=== PATIENT | male | born 1990 | race Caucasian/White ===

== ENCOUNTER 2022-08-29 11:45 | Outpatient (RCR) | payer OTHER, MEDICAID, SELFPAY ==
--- NOTE | 2022-06-22 18:59 | ST.OPIE ---
Visit Care Team Role Provider Type KIMI Robbins Family Provider Non-Staff Primary Care Provider Specialty: Nursing Address: [facility] [address], [address], [place], [address] Email: Attending Provider Referring Provider Specialty: Address: Phone: Fax: Email: Speech-Language Pathology Initial Evaluation TRADES HELPER Adult Cognitive Linguistic Eval Start: 06/22/22 18:08 Freq: Status: Active Protocol: Document 06/22/22 18:11 LNK (Rec: 06/22/22 18:59 LNK [id number]) Adult Cognitive Linguistic Evaluation Session Time Visit Start Time 14:30 Visit Stop Time 15:50 Total Visit Minutes 80 Visit Information Visit Number 1 Plan of Care Dates 06/22/22-10/22/22 Insurance Information [employer] Referral Referring Provider Dr.Kim Niyah Rodriguez MD Reason for Referral TBI Setting Assessment Location Outpatient Care Visit Type Note Type Initial evaluation Next Note Type Next Note Type Re-Evaluation Patient Information Identification Type Name,Date of Patient History Pt is a 31 year old male 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 According to his parents, who accompanied him, the pt was found down after falling. pt was unconscious and emergency responders were called. Pt was air lifted to [facility] where he remained in a coma for 16 days. Pt underwent an craniotomy to remove an epidural hematoma. initial Dalia score was 2. Pt remained in ICU until 05/14/22 and subsequently entered inpatient rehab at [facility] and was discharged on 05/30/22. out patient OT, PT and ST therapies were recommended. According to his parents, the pt is a shy and quiet young man. He lives at home with his parents. He was working at [employer] prior to his accident and wishes to return to [employer] to work in the future. Previous Therapy Previous Speech-Language Therapy Yes History of Therapy [facility] and acute rehab Subjective Patient Report Pt's parents report that currently, he presents with expressive aphasia, memory loss, reduced levels of processing speed and a significant hearing loss as a result of the accident. The discharge report from [facility] noted that the pt continues to demonstrate the following impairments: auditory processing, vebal expression, attention, written expression, memory, reasoning , executive functions and visual perception. The [facility] report summarized pt's status at discharge as Reduced ability to attend; Reduced ability to recall important information; Reduced ability to follow safety precautions; Reduced ability to understand and participate in higher level conversations Assessment Oral Motor Examination Completed Yes Results Pt demonstrated incoordination of the tongue muscles for lateralization and slowed DKS. Adequate ROM and strength for lips, jaw and velum. Pt's speech was observed to be mildly dysarthric. Formal Assessment Standardized Test/Screener Type Cognitive Linguistic Quick Test (CLQT) Administration Complete Results The results of the CLQT indicated mild cognitive deficits in the domains: Attention, Executive Functions and Visuospatial Skills. The pt demonstrated moderate cognitive deficits in the domains: Memory, language, and in the clock drawing task. relative to the individual subtests, The pt scored below age criterion on the following Personal Facts (forgot where in [place] he was born), Confrontational Naming, Clock Drawing, Story retelling anf fact recall,Symbolic Trails, Design Memory and Design Generation. Of these subtests the pt demonstrated the greatest difficulty with 1) Clock Drawing (executive functions, sequencing, self- monitoring, planning); 2) Story Retelling (memory, language, narration, sequencing logical conclusion) 3) Symbol Trails (attention, visual scanning, working memory, planning mental flexibility) and 4) Design Generation (mental flexibility , strategy, creativity, working memory and self- monitoring. Cognitive, speech and language therapies are recommended to address pt's dysarthria, receptive/expressive aphasia as well as cognitive skill deficits. Findings/Results Language Function Mild-moderately impaired Cognitive Function Moderately impaired Cognitive Communication Deficits Self-awareness of Cognitive- Situational awareness ( Communication Deficits recognition of problem in context;in real time) Concomitant Factors Concomitant Factors Hearing loss Impact on Functioning Activity Limits/Particip.Rest. Mild: Interpersonal Interactions Mod: General Tasks and Demands Household Tasks Education Employment Community Safety Risks Mild: Being Left Alone at Home Mod: Reacting to Emergency Managing Medication Traveling Alone in Community Prognosis Prognosis Good Based on Cognitive status,Family support,Duration of symptoms/ severity,Time since onset Plan of Care Speech-Language Treatment Yes Frequency weekly Patient/Caregiver Education Described results of evaluation,Family/caregivers expressed understanding of evaluation,Family/caregivers expressed understanding of safety precautions,Family/ caregivers require further education/training Short Term Goals 1) Pt will reference and utilize external memory sides for safety information, daily information, use of memory book or other assistive devices daily without cues/ reminders from others, per parent/patient report. 2) Pt will communicate/converse with others on familiar topics using strategies for WFD difficulty and word generation without cues at 65% opportunities. 3) pt will complete moderately difficult problem-solving tasks independently with use of strategies provided without cues/assistance at 65% opportunities Pattern Designer Goals Pt will return to work
--- NOTE | 2022-06-22 19:02 | ST.OP.ACL ---
Visit Care Team Role Provider Type KIMI Robbins Family Provider Non-Staff Primary Care Provider Specialty: Nursing Address: [facility] [address], [address], [place], [address] Email: Attending Provider Referring Provider Specialty: Address: Phone: Fax: Email: Adult Cognitive Linguistic Evaluation BUSINESS SUPPORT Adult Cognitive Linguistic Eval Start: 06/22/22 18:08 Freq: Status: Active Protocol: Document 06/22/22 18:11 LNK (Rec: 06/22/22 18:59 LNK [id number]) Adult Cognitive Linguistic Evaluation Session Time Visit Start Time 14:30 Visit Stop Time 15:50 Total Visit Minutes 80 Visit Information Visit Number 1 Plan of Care Dates 06/22/22-10/22/22 Insurance Information [employer] Referral Referring Provider Dr.Kim Niyah Rodriguez MD Reason for Referral TBI Setting Assessment Location Outpatient Care Visit Type Note Type Initial evaluation Next Note Type Next Note Type Re-Evaluation Patient Information Identification Type Name,Date of Patient History Pt is a 31 year old male 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 According to his parents, who accompanied him, the pt was found down after falling. pt was unconscious and emergency responders were called. Pt was air lifted to [facility] where he remained in a coma for 16 days. Pt underwent an craniotomy to remove an epidural hematoma. initial Sinton score wa 2. Pt remained in ICU until 05/14/22 and subsequently entered inpatient rehab at [facility] and was discharged on 05/30/22. out patient OT, PT and ST therapies were recommended. According to his parents, the pt is a shy and quiet young man. He lives at home with his parents. He was working at [employer] prior to his accident and wishes to return to [employer] to work in the future. Previous Therapy Previous Speech-Language Therapy Yes History of Therapy [facility] and acute rehab Subjective Patient Report Pt's parents report that currently, he presents with expressive aphasia, memory loss, reduced levels of processing speed and a significant hearing loss as a result of the accident. The discharge report from [facility] noted that the pt continues to demonstrate the following impairments: auditory processing, vebal expression, attention, written expression, memory, reasoning , executive functions and visual perception. The [facility] report summarized pt's status at discharge as Reduced ability to attend; Reduced ability to recall important information; Reduced ability to follow safety precautions; Reduced ability to understand and participate in higher level conversations Assessment Oral Motor Examination Completed Yes Results Pt demonstrated incoordination of the tongue muscles for lateralization and slowed DKS. Adequate ROM and strength for lips, jaw and velum. Pt's speech was observed to be mildly dysarthric. Formal Assessment Standardized Test/Screener Type Cognitive Linguistic Quick Test (CLQT) Administration Complete Results The results of the CLQT indicated mild cognitive deficit in the domains: Attention, Executive Functions and Visuospatial Skills. The pt demonstrated moderate cognitive deficits in the domains: Memory, language, and in the clock drawing task. relative to the individual subtests, The pt scored below age criterion on the following Personal Facts (forgot where in [place] he was born), Confrontational Naming, Clock Drawing, Story retelling and fact recall,Symbolic Trails, Design Memory and Design Generation. Of these subtests the pt demonstrated the greatest difficulty with 1) Clock Drawing (executive functions, sequencing, self- monitoring, planning); 2) Story Retelling (memory, language, narration, sequencing logical conclusion) 3) Symbol Trails (attention, visual scanning, working memory, planning mental flexibility) and 4) Design Generation (mental flexibility , strategy, creativity, working memory and self- monitoring. Cognitive, speech and language therapies are recommended to address pt's dysarthria, receptive/expressive aphasia as well as cognitive skill deficits. Findings/Results Language Function Mild-moderately impaired Cognitive Function Moderately impaired Cognitive Communication Deficits Self-awareness of Cognitive- Situational awareness ( Communication Deficits recognition of problem in context;in real time) Concomitant Factors Concomitant Factors Hearing loss Impact on Functioning Activity Limits/Particip.Rest. Mild: Interpersonal Interactions Mod: General Tasks and Demands Household Tasks Education Employment Community Safety Risks Mild: Being Left Alone at Home Mod: Reacting to Emergency Managing Medication Traveling Alone in Community Prognosis Prognosis Good Based on Cognitive status,Family support,Duration of symptoms/ severity,Time since onset Plan of Care Speech-Language Treatment Yes Frequency weekly Patient/Caregiver Education Described results of evaluation,Family/caregivers expressed understanding of evaluation,Family/caregivers expressed understanding of safety precautions,Family/ caregivers require further education/training Short Term Goals 1) Pt will reference and utilize external memory sides for safety information, daily information, use of memory book or other assistive devices daily without cues/ reminders from others, per parent/patient report. 2) Pt will communicate/converse with others on familiar topics using strategies for WFD difficulty and word generation without cues at 65% opportunities. 3) pt will complete moderately difficult problem-solving tasks independently with use of strategies provided without cues/assistance at 65% opportunities [employer]ci Goals Pt will return to work
--- NOTE | 2022-06-22 19:05 | ST.OPPOC ---
Physical, Occupational & Speech Therapy At [facility] Visit Care Team Role Provider Type KIMI Robbins Family Provider Non-Staff Primary Care Provider Address: [facility] [address], [address], [place], [address] Attending Provider Referring Provider Address: Phone: Fax: Speech Pathology Plan of Care Plan of Care Dates 06/22/22-10/22/[address]Kim Niyah Rodriguez MD Patient History Pt is a 31 year old male 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 According to his parents, who accompanied him, the pt was found down after falling. pt was unconscious and emergency responders were called. Pt was air lifted to [facility] where he remained in a coma for 16 days. Pt underwent an craniotomy to remove an epidural hematoma. initial Ransom score wa 2. Pt remained in ICU until 05/14/22 and subsequently entered inpatient rehab at [facility] and was discharged on . out patient OT, PT and ST therapies were recommended. According to his parents, the pt is a shy and quiet young man. He lives at home with his parents. He was working at [employer] prior to his accident and wishes to return to [employer] to work in the future. Self-awareness of Cognitive- Situational awareness (re Communication Deficits General Tasks and Demands Moderate Household Tasks Moderate Interpersonal Interactions Mild Education Moderate Employment Moderate Community Moderate Being Left Alone at Home Mild Reacting to Emergency Moderate Managing Medication Moderate Traveling Alone in Community Moderate Short Term Goals 1) Pt will reference and utilize external memory sides for safety information, daily information , use of memory book or other assistive devices daily without cues/reminders from others, per parent/patient report. 2) Pt will communicate/ converse with others on familiar topics using strategies for WFD difficulty and word generation without cues at 65% opportunities. 3 ) pt will complete moderately difficult problem -solving tasks independently with use of strategies provided without cues/assistance at 65% opportunities Subassembler Goals Pt will return to work Comment: Electronically Signed by: CHANELL Westbrook 06/22/22 [id number] If you are in agreement with this Plan of Care, please return a signed and dated copy. I have reviewed this Plan of Care and certify that the skilled therapy services above are required to meet the patient?s needs. Physician Signature Date Printed Name and Credentials Clinical Instructor Signature Printed Name and Credentials
--- NOTE | 2022-07-12 17:11 | ST.IPSLE ---
Visit Care Team Role Provider Type KIMI Robbins Family Provider Non-Staff Primary Care Provider Specialty: Nursing Address: [facility] [place] [address], [address], [place], [address] Email: Attending Provider Referring Provider Specialty: Address: Phone: Fax: Email: Current Diagnoses Unspecified intracranial injury with loss of consciousness status unknown, initial encounter (07/12/22) Speech-Language Pathology Speech/Language Eval MEDICAL ATTENDANT Adult Cognitive Linguistic Eval Start: 06/22/22 18:08 Freq: Status: Active Protocol: Document 07/12/22 15:53 LNK (Rec: 07/12/22 17:11 LNK [id number]) Adult Cognitive Linguistic Evaluation Session Time Visit Start Time 10:30 Visit Stop Time 12:30 Total Visit Minutes 120 Visit Information Visit Number 2 Plan of Care Dates 06/22/22-10/22/22 Insurance Information [employer] Referral Referring Provider Dr.Kim Niyah Rodriguez MD Reason for Referral TBI Setting Assessment Location Outpatient Care Visit Type Note Type Initial evaluation Next Note Type Next Note Type Treatment Note Patient Information Identification Type Name,Date of Patient History Pt is a 31 year old male 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 According to his parents, who accompanied him, the pt was found down after falling. pt was unconscious and emergency responders were called. Pt was air lifted to [facility] where he remained in a coma for 16 days. Pt underwent an craniotomy to remobe an epidural hematoma. initial Chip score wa 2. Pt remained in ICU until 05/14/22 and subsequently entered inpatient rehab at [facility] and was discharged on 05/30/22. out patient OT, PT and ST therapies were recommended. According to his parents, the pt is a shy and quiet young man. He lives at home with his parents. He was working at [employer] prior to his accident and wishes to return to home [employer] to work in the future. Hearing Auditory History Right side hearing loss diagnosed 06/21/22 secondary to right temporal bone fracture Previous Therapy Previous Speech-Language Therapy Yes History of Therapy [facility] and acute rehab Subjective Patient Report Pt's parents report that currently, he presents with expressive aphasia, memory loss, reduced levels of processing speed and a significant hearing loss as a result of the accident. The discharge report from [facility] noted that the pt continues to demonstrate the following impairments: auditory processing, vebal expression, attention, written expression, memory, reasoning , executive functions and visual perception. The [facility] report summarized pt's status at discharge as Reduced ability to attend; Reduced ability to recall important information; Reduced ability to follow safety precautions; Reduced ability to understand and participate in higher level conversations Informal Assessment Receptive Language Normal No Receptive Language Impairment(s) Following 2-step commands, Following 3-step commands, Reading comprehension, Comprehension of conversation Expressive Language Normal No Expressive Language Impairment(s) Divergent naming,Expression of complex thoughts/ideas Pragmatic Language Normal No Pragmatic Language Impairment(s) Topic maintenance,Flat affect, Poor eye contact,Initiation Speech Normal Yes Formal Assessment Standardized Test/Screener Type Quick Aphasia Battery (QAB) Administration Discontinued Results The Quick Aphasia Battery was administered and abandoned as it was too easy for Anirudh and was not sensitive to his word finding difficulty (WFD). The Gary Naming test was then implemented. The results of the Gary Naming Test indicated that for picture drawings Anirudh was able to spontaneously name 45/60 pictures. For 11 words he was unable to spontaneously name, subsequent stimulus cues were successful in aiding Anirudh in correctly naming the pictures. These cues included stimulus description cues, phonemic cues and multiple choice options. Anirudh was unable to name 4 pictures, despite the additional cuing. Anirudh's overall score for picture naming was 55, which is considered to be WNL for his age group. However, this assessment is limited in it's scope in that only single pictures were provided. This assessment does not take into consideration the WFD that Anirudh has when he is in conversation and/or interacting in dynamic settings with distractions and /or multiple speakers. It is encouraging that Anirudh is able to benefit from different cues in order to be able to say the word needed. Additionally, during the assessment, Anirudh was observed to use definition/ description and some word/ phonemic approximations in his attempts to find the word he needed. This is encouraging for therapeutic intervention, as this a common strategy used for WFD. Findings/Results Language Function Moderately impaired Findings Informal observation noted that Anirudh will tend to hyper focus on topics (e.g., spirituality, the Mandela effect and/or his experiences while in the hospital). The [place] Communication Questionnaire is an informal tool presented to both Anirudh and his father. This is a four point rating scale (1= usually/always to 4=never/ rarely) regarding different communication characteristics. Anirudh and/or his father rated the following situations as always or often occurring: leave out details; use of vague language ; repeat same topics/ discussions in conversation; having WFD; speak too slowly; say/do things considered rude or embarrassing; and get side- tracked easily with irrelevant points in a conversation. Cognitive Communication Deficits Self-awareness of Cognitive- Situational awareness ( Communication Deficits recognition of problem in context;in real time) Concomitant Factors Concomitant Factors Hearing loss Prognosis Prognosis Good Comment Anirudh's age - young adult Plan of Care Speech-Language Treatment Yes Frequency weekly Patient/Caregiver Education Described results of evaluation,Family/caregivers expressed understanding of evaluation,Family/caregivers expressed understanding of safety precautions,Family/ caregivers require further education/training Short Term Goals Pt will communicate/converse with others on familiar topics using strategies for WFD difficulty and word generation without cues at 65% opportunities. 3) pt will complete moderately difficult problem-solving tasks independently with use of strategies provided without cues/assistance at 65% opportunities [facility] Goals Pt will return to work
--- NOTE | 2022-07-19 12:34 | ST.OPTN ---
Visit Care Team Role Provider Type KIMI Robbins Family Provider Non-Staff Primary Care Provider Address: [facility] [address], [address], [place], [address] Attending Provider Referring Provider Address: Phone: Fax: HOTEL MAID Treatment Note HOTEL MAID Treatment Note Start: 06/22/22 18:08 Freq: Status: Active Protocol: Document 07/19/22 11:42 LNK (Rec: 07/19/22 12:34 LNK [id number]) Speech Pathology Treatment Note Session Time Visit Start Time 10:30 Visit Stop Time 11:30 Total Visit Minutes 60 Visit Information Visit Number 3 Plan of Care Dates 06/22/22-10/22/22 Setting Treatment Setting Outpatient Care Visit Type Note Type Treatment Note Next Note Type Next Note Type Treatment Note General Information Patient History Pt is a 31 year old male 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 According to his parents, who accompanied him, the pt was found down after falling. pt was unconscious and emergency responders wer called. Pt was air lifted to [facility] where he remained in a coma for 16 days. Pt underwent an craniotomy to remove an epidural hematoma. Initial Dalia score was 2. Pt remained in ICU until 05/14/22 and subsequently entered inpatient rehab at [facility] and was discharged on 05/30/22. Out patient OT, PT and ST therapies were recommended. According to his parents, the pt is a shy and quiet young man. He lives at home with his parents. He was working at [employer] prior to his accident and wishes to return to [employer] to work in the future. Subjective Identification Type Name,Date of Others Present Family Observations/Patient Presentation Anirudh and his father attended therapy Chief Complaint(s) Language,Cognitive Rehab Expectation/Goals: Patient Goals To go back to work Rehab Expectation/Goals: Parent/Guardian Improved cognitive/language /Bleach [employer]er Goals skills Patient Knowledge/Awareness of HOTEL MAID Role Good in Treatment Parent/Caretake Knowledge/Awareness of Good HOTEL MAID Role in Treatment Objective Short Term Goals LANGUAGE: Pt will communicate/ converse with others on familiar topics using strategies for WFD difficulty and word generation without cues at 65% opportunities. 3) pt will complete moderately difficult problem-solving tasks independently with use of strategies provided without cues/assistance at 65% opportunities COGNITION: 1) Pt will reference and utilize external memory sides for safety information, daily information , use of memory book or other assertive devices daily without cues/reminders from others, per parent/patient report. 2) Pt will communicate /converse with others on familiar topics using strategies for WFD difficulty and word generation without cues at 65% opportunities. 3) pt will complete moderately difficult problem-solving tasks independently with use of strategies provided without cues/assistance at 65% opportunities [ End ] Intermediate Goals Pt will return to work Treatment Activities Reviewed assessment results with Anirudh and his father. Goals for cognitive therapy as well as for improving WFD were described. Written literature on external memory aids was provided to father. Targeted the use of narrowing Anirudh's focus from going to [employer] (I don't remember what I order to listing how he specifically orders a meal (i.e., #10). Anirudh listed 5 specific things he likes and/or substitutes when he orders the #10. Initiated the Goal Setting Worksheet, to be continued next session. WFD worksheets provided for homework to be done at 20-30 minutes per day. Additionally , more details to his journal entries. Assessment Rehab Potential Good Impairments Identified Expressive language,Cognitive communication,Pragmatics Reviewed with Patient Home Exercise Program Patient/Caregiver Understanding Good Plan Amount of Therapy Recommended 6 Months Frequency of Treatment Once a Week Therapeutic Contents Cognitive-Linguistic Training Provided Patient/Caregiver Instruction Home Exercise Program,Other Comment information/worksheets Therapy Recommendations Continue with Current Program
--- NOTE | 2022-08-02 16:30 | ST.OPTN ---
Visit Care Team Role Provider Type KIMI Robbins Family Provider Non-Staff Primary Care Provider Address: [facility] [address], [address], [place], [address] Attending Provider Referring Provider Address: Phone: Fax: [employer] Treatment Note [employer] Clinical Instructor Line Start: 08/02/22 12:22 Freq: Status: Active Protocol: Document 08/02/22 12:23 BE (Rec: 08/02/22 12:41 BE [id number]) Clinical Instructor Signature Clinical Instructor Clinical Instructor Yes [employer] Treatment Note Start: 06/22/22 18:08 Freq: Status: Active Protocol: Document 08/02/22 12:23 BE (Rec: 08/02/22 12:41 BE [id number]) Speech Pathology Treatment Note Session Time Visit Start Time 10:30 Visit Stop Time 11:30 Total Visit Minutes 60 Visit Information Visit Number 4 Plan of Care Dates 06/22/22-10/22/22 Setting Treatment Setting Outpatient Care Visit Type Note Type Treatment Note Next Note Type Next Note Type Treatment Note General Information Patient History Pt is a 31 year old male rferred for treatment following TBI on 03/12/22. According to his parents, who accompanied him, the pt was found down after falling. pt was unconscious and emergency responders wer called. Pt was air lifted to [facility] where he remained in a coma for 16 days. Pt underwenrt an craniotomy to remove an epidural hematoma. Initial Ludowici score was 2. Pt remained in ICU until 05/14/22 and subsequently entered inpatient rehab at [facility] and was discharged on 05/30/22. Out patient OT, PT and ST therapies were recommended. According to his parents, the pt is a shy and quiet young man. He lives at home with his parents. He was working at [employer] prior to his accident and wishes to return to home [employer] to work in the future. 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 3) pt will complete modeerately difficult problem-solving tasks independently with use of strategies provided without cues/assistance at 65% opportunities COGNITION: 1) Pt will reference and utilize external memory sides for safety information, daily information , use of memory book or other assistive devices daily without cues/reminders from others, per parent/patient report. 2) Pt will communicate /converse with others on familiar topics using strategies for WFD difficulty and word generation without cues at 65% opportunities. 3) pt will complete moderately difficult problem-solving tasks independently with use of strategies provided without cues/assistance at 65% opportunities [ End ] Mcfp Goals Pt will return to work Treatment Activities Reviewed home practice worksheets; per father's report, Anirudh completed ~70% without cueing. Father initiated use of worksheets every other day. Anirudh willingly participated. Gave worksheets to complete for following session. Targeted cognition using Goal Plan portion of Goal/Plan/Do/Review . Anirudh identified a goal and identified materials and actions needed to complete goal. When instructed to give just materials, Anirudh provided materials and actions . Needed redirection to only answer targeted question. In conversation, Anirudh showed improvement in language fluency and topic maintenance. Previously perseverated topics (e.g., Mandella effect) were never brought up. Gave inappropriate answers x3 ( wrong topic) during conversation. Probed reading comprehension using 4th-6th grade level short story. Answered 1/3 content questions correctly with verbal cueing. Able to provide main idea of story independently. Suggested attempting to read at home. Suggested discussion of television show, a favorite hobby of Emily, with his father (including characters, setting, main idea). Suggested practice using GPDR for weekly (habitual) goals. Assessment Rehab Potential Good Impairments Identified Expressive language,Cognitive communication,Pragmatics Reviewed with Patient Home Exercise Program Patient/Caregiver Understanding Good Plan Amount of Therapy Recommended 6 Months Frequency of Treatment Once a Week Therapeutic Contents Cognitive-Linguistic Training Provided Patient/Caregiver Instruction Home Exercise Program,Other Comment information/worksheets Therapy Recommendations Continue with Current Program
--- NOTE | 2022-08-09 17:17 | ST.OPTN ---
Visit Care Team Role Provider Type KIMI Robbins Family Provider Non-Staff Primary Care Provider Address: [facility] [address], [address], [place], [address] Attending Provider Referring Provider Address: Phone: Fax: STEAMER BLOCKER Treatment Note STEAMER BLOCKER Clinical Instructor Line Start: 08/02/22 12:22 Freq: Status: Active Protocol: Document 08/09/22 11:38 BE (Rec: 08/09/22 11:51 BE [id number]) Clinical Instructor Signature Clinical Instructor Clinical Instructor Yes STEAMER BLOCKER Treatment Note Start: 06/22/22 18:08 Freq: Status: Active Protocol: Document 08/09/22 11:38 BE (Rec: 08/09/22 11:51 BE [id number]) Speech Pathology Treatment Note Session Time Visit Start Time 10:45 Visit Stop Time 11:40 Total Visit Minutes 55 Visit Information Visit Number 5 Plan of Care Dates 06/22/22-10/22/22 Setting Treatment Setting Outpatient Care Visit Type Note Type Treatment Note Next Note Type Next Note Type Treatment Note General Information Patient History Pt is a 31 year old male rferred for treatment following TBI on 03/12/22. According to his parents, who accompanied him, the pt was found down after falling. pt was unconscious and emergency responders wer called. Pt was air lifted to [facility] where he remained in a coma for 16 days. Pt underwenrt an craniotomy to remove an epidural hematoma. Initial Boston score was 2. Pt remained in ICU until 05/14/22 and subsequently entered inpatient rehab at [facility] and was discharged on 05/30/22. Out patient OT, PT and ST therapies were recommended. According to his parents, the pt is a shy and quiet young man. He lives at home with his parents. He was working at [employer] prior to his accident and wishes to return to home [employer] to work in the future. Subjective Identification Type Name,Date of Others Present Family Observations/Patient Presentation Anirudh and his father attended therapy. Anirudh ambulated independently, without use of walker. Chief Complaint(s) Language,Cognitive Rehab Expectation/Goals: Patient Goals To go back to work Rehab Expectation/Goals: Parent/Guardian Improved cognitive/language /Ocular Care Technologist Goals skills Patient Knowledge/Awareness of STEAMER BLOCKER Role Good in Treatment Parent/Caretake Knowledge/Awareness of Good STEAMER BLOCKER Role in Treatment Objective Short Term Goals LANGUAGE: Pt will communicate/ converse with others on familiar topics using strategies for WFD difficulty and word generation without cues at 65% opportunities. 3) pt will complete moderately difficult problem-solving tasks independently with use of strategies provided without cues/assistance at 65% opportunities COGNITION: 1) Pt will reference and utilize external memory sides for safety information, daily information , use of memory book or other assistive devices daily without cues/reminders from others, per parent/patient report. 2) Pt will communicate /converse with others on familiar topics using strategies for WFD difficulty and word generation without cues at 65% opportunities. 3) pt will complete moderately difficult problem-solving tasks independently with use of strategies provided without cues/assistance at 65% opportunities [ End ] Wordpress Developer Goals Pt will return to work Treatment Activities Reviewed home practice worksheets; Anirudh reported feeling frustrated by difficulty of sheets, and inability to work at previously functioning level. Father initiated use of worksheets every other day. Anirudh willingly participated. Provided instruction to skip difficult questions and attempt them at a later time, and to take breaks when needed . Gave worksheets to complete for following session. Targeted cognition using Goal Plan portion of Goal/Plan/Do/ Review. Anirudh identified a goal (making chili), materials and actions needed to complete goal. Anirudh needed frequent cueing to visualize scene and provide materials/ actions. In conversation, Anirudh showed improvement in language fluency and topic maintenance. No perseveration on any one topic. 1x moment of communication breakdown during conversation when answering a question about word finding challenges- Anirudh related answer back to work, but did not directly answer question. Father reported follow through with discussing television shows/ movies with son after watching . Anirudh reported that he started playing video games again, with reduced difficulty levels to start slow. Provided family with word finding strategies information sheet. Assessment Patient Response to Treatment Good Rehab Potential Good Impairments Identified Expressive language,Cognitive communication,Pragmatics Progress Towards Goals Slow Progress Assessment of Overall Progress Improving Assessment of Improvement Anirudh is showing improvement in language fluency in conversation, with fewer moments of word finding challenges. Most pauses in conversation are now related to memory and attention rather than word retrieval. Anirudh's father reported only 4-5 moments of word finding at home/day, which typically involve use of a word approximate (e.g., maturation becomes maturion). In those moments, Anirudh typically will provide a definition and encourage conversation partners to guess at his intended meaning. Reviewed with Patient Home Exercise Program Patient/Caregiver Understanding Good Plan Amount of Therapy Recommended 6 Months Frequency of Treatment Once a Week Length of Session 45 Minutes Therapeutic Contents Cognitive-Linguistic Training Provided Patient/Caregiver Instruction Home Exercise Program,Other Comment information/worksheets Therapy Recommendations Continue with Current Program
--- NOTE | 2022-08-17 10:34 | ST.OPTN ---
Visit Care Team Role Provider Type KIMI Robbins Family Provider Non-Staff Primary Care Provider Address: [facility] [address], [address], [place], [address] Attending Provider Referring Provider Address: Phone: Fax: SENIOR CLINICAL PROJECT MANAGER Treatment Note SENIOR CLINICAL PROJECT MANAGER Clinical Instructor Line Start: 08/02/22 12:22 Freq: Status: Active Protocol: Document 08/16/22 12:00 BE (Rec: 08/16/22 12:08 BE [id number]) Clinical Instructor Signature Clinical Instructor Clinical Instructor Yes SENIOR CLINICAL PROJECT MANAGER Treatment Note Start: 06/22/22 18:08 Freq: Status: Active Protocol: Document 08/16/22 12:00 BE (Rec: 08/16/22 12:08 BE [id number]) Speech Pathology Treatment Note Session Time Visit Start Time 10:45 Visit Stop Time 11:40 Total Visit Minutes 50 Visit Information Visit Number 6 Plan of Care Dates 06/22/22-10/22/22 Setting Treatment Setting Outpatient Care Visit Type Note Type Treatment Note Next Note Type Next Note Type Treatment Note General Information Patient History Pt is a 31 year old male rferred for treatment following TBI on 03/12/22. According to his parents, who accompanied him, the pt was found down after falling. pt was unconscious and emergency responders wer called. Pt was air lifted to [facility] where he remained in a coma for 16 days. Pt underwent an craniotomy to remove an epidural hematoma. Initial Sheffield score was 2. Pt remained in ICU until 05/14/22 and subsequently entered inpatient rehab at [facility] and was discharged on 05/30/22. Out patient OT, PT and ST therapies were recommended. According to his parents, the pt is a shy and quiet young man. He lives at home with his parents. He was working at [employer] prior to his accident and wishes to return to [employer] to work in the future. Subjective Identification Type Name,Date of Others Present Family Observations/Patient Presentation Anirudh and his father attended therapy. Anirudh ambulated independently, without use of walker. Father reported upcoming consultation with ENT for Anirudh's hearing loss in right ear. Chief Complaint(s) Language,Cognitive Rehab Expectation/Goals: Patient Goals To go back to work Rehab Expectation/Goals: Parent/Guardian Improved cognitive/language /Manager University Goals skills Patient Knowledge/Awareness of SENIOR CLINICAL PROJECT MANAGER Role Good in Treatment Parent/[place] Knowledge/Awareness of Good SENIOR CLINICAL PROJECT MANAGER Role in Treatment Objective Short Term Goals LANGUAGE: Pt will communicate/ converse with others on familiar topics using strategies for WFD difficulty and word generation without cues at 65% opportunities. 3) pt will complete modeerately difficult problem-solving tasks independently with use of strategies provided without cues/assistance at 65% opportunities COGNITION: 1) Pt will reference and utilize external memory sides for safety information, daily information , use of memory book or other assistive devices daily without cues/reminders from others, per parent/patient report. 2) Pt will communicate /converse with others on familiar topics using strategies for WFD difficulty and word generation without cues at 65% opportunities. 3) pt will complete moderately difficult problem-solving tasks independently with use of strategies provided without cues/assistance at 65% opportunities [ End ] Jail Goals Pt will return to work Treatment Activities Reviewed home practice worksheets; Anirudh reported limited follow through with worksheet practice. Discussed incorporating phone chel memory or attention focused games that Anirudh finds enjoyable but challenging. Anirudh reported follow through with video game playing, including longer sessions. He stated that he does not feel overly tired following completion of video game sessions. In conversation, Anirudh showed improvement in language fluency and topic maintenance. No perseveration on any one topic. Anirudh occasionally uses nonspecific language in response to direct questions, and does not appear to notice when his communication partner does not understand what he says. Anirudh reported follow through with discussing television shows/movies with father after watching. Reviewed word finding strategy : phonemic cueing. Targeted attention with and without competing background noise. Anirudh demonstrated slower processing and increased difficulty solving tasks with background noise. His father reported noisy environments can be a source of frustration for Anirudh, especially with hearing loss in his right ear. Recommended referral to psychiatry for pt to address anger surrounding his injury and healing process. Assessment Patient Response to Treatment Good Rehab Potential Good Impairments Identified Expressive language,Cognitive communication,Pragmatics Progress Towards Goals Slow Progress Assessment of Overall Progress Improving Assessment of Improvement Anirudh is showing improvement in language fluency in conversation, with fewer moments of word finding challenges. Most pauses in conversation are related to memory and attention. During moments of word retrieval challenges, Anirudh's use of strategies is variable. He demonstrates improved topic maintenance in conversation. Reviewed with Patient Home Exercise Program Patient/Caregiver Understanding Good Plan Amount of Therapy Recommended 6 Months Frequency of Treatment Once a Week Length of Session 45 Minutes Therapeutic Contents Cognitive-Linguistic Training Provided Patient/Caregiver Instruction Home Exercise Program,Other Comment information/worksheets Therapy Recommendations Continue with Current Program
--- NOTE | 2022-08-23 16:22 | ST.OPTN ---
Visit Care Team Role Provider Type KIMI Robbins Family Provider Non-Staff Primary Care Provider Address: [facility] [address], [address], [place], [address] Attending Provider Referring Provider Address: Phone: Fax: BREAST SPLITTER Treatment Note BREAST SPLITTER Clinical Instructor Line Start: 08/02/22 12:22 Freq: Status: Active Protocol: Document 08/23/22 11:46 BE (Rec: 08/23/22 12:15 BE [id number]) Clinical Instructor Signature Clinical Instructor Clinical Instructor Yes BREAST SPLITTER Treatment Note Start: 06/22/22 18:08 Freq: Status: Active Protocol: Document 08/23/22 11:46 BE (Rec: 08/23/22 12:15 BE [id number]) Speech Pathology Treatment Note Session Time Visit Start Time 10:45 Visit Stop Time 11:30 Total Visit Minutes 45 Visit Information Visit Number 7 Plan of Care Dates 06/22/22-10/22/22 Setting Treatment Setting Outpatient Care Visit Type Note Type Treatment Note Next Note Type Next Note Type Treatment Note General Information Patient History Pt is a 31 year old male rferred for treatment following TBI on 03/12/22. According to his parents, who accompanied him, the pt was found down after falling. pt was unconscious and emergency responders wer called. Pt was air lifted to [facility] where he remained in a coma for 16 days. Pt underwenrt an craniotomy to remove an epidural hematoma. Initial [place] score was 2. Pt remained in ICU until 05/14/22 and subsequently entered inpatient rehab at [facility] and was discharged on 05/30/22. Out patient OT, PT and ST therapies were recommended. According to his parents, the pt is a shy and quiet young man. He lives at home with his parents. He was working at [employer] prior to his accident and wishes to return to [employer] to work in the future. Subjective Identification Type Name,Date of Others Present Family Observations/Patient Presentation Anirudh and his father attended therapy. Anirudh ambulated independently, without use of walker. Father reported upcoming consultation with ENT for Anirudh's hearing loss in right ear towards end of August. 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 3) pt will complete modeerately difficult problem-solving tasks independently with use of strategies provided without cues/assistance at 65% opportunities COGNITION: 1) Pt will reference and utilize external memory sides for safety information, daily information , use of memory book or other assistive devices daily without cues/reminders from others, per parent/patient report. 2) Pt will communicate /converse with others on familiar topics using strategies for WFD difficulty and word generation without cues at 65% opportunities. 3) pt will complete moderately difficult problem-solving tasks independently with use of strategies provided without cues/assistance at 65% opportunities [ End ] High School Admissions Representative Goals Pt will return to work Treatment Activities Reviewed home practice- Anirudh reported follow through with video games, but not using discussed phone apps for practice at home. Provided pt with 10 principles of neuroplasticity sheet, and discussion of importance of home practice. Anirudh reported that going back to work is his main goal, as his in- person social life is tied to his work relationships. Anirudh reported interacting with internet-based friends similarly to how he did pre- injury. He stated that he has great difficulty thinking and speaking in environments with competing noises, partially due to hearing loss and partially due to concentration . Targeted attention with distractor (restaurant ambiance noise ). Recommended follow through with background distractor to simulate noisy environments during home-based activities ( e.g., deirdre). Targeted indepenedence by incorporating use of personal notebook into session, and recommended use throughout daily activities ( OT, PT, to-do lists, things to remembers, etc.) In conversation, Anirudh had 4x moments of word finding difficulty- he often resorted to gestures to get meaning across, but would sometimes continue on with speaking before meaning was clear. Practiced describing or providing synonyms in those moments. Anirudh's language is often nonspecific, and he does not appear to notice when his communication partner does not understand what he says. When prompted, Anirudh typically is able to expand/ specify. Discussed personal short-term goal identification strategies, especially in relation to Anirudh's long-term goal of going back to work. Assessment Patient Response to Treatment Good Rehab Potential Good Impairments Identified Expressive language,Cognitive communication,Pragmatics Progress Towards Goals Slow Progress Assessment of Overall Progress Improving Assessment of Improvement Anirudh is showing improvement in language fluency in conversation, with fewer moments of word finding challenges. Most pauses in conversation are related to memory and attention. During moments of word retrieval challenges, Anirudh's use of strategies is variable. He demonstrates improved topic maintenance in conversation. Anirudh's language continues to lack specificity, and is often brief. Reviewed with Patient Home Exercise Program Patient/Caregiver Understanding Good Plan Amount of Therapy Recommended 6 Months Frequency of Treatment Once a Week Length of Session 45 Minutes Therapeutic Contents Cognitive-Linguistic Training Provided Patient/Caregiver Instruction Home Exercise Program,Other Comment information/worksheets Therapy Recommendations Continue with Current Program
--- NOTE | 2022-08-29 17:26 | ST.OPTN ---
Visit Care Team Role Provider Type KIMI Robbins Family Provider Non-Staff Primary Care Provider Address: [facility] [address], [address], [place], [address] Attending Provider Referring Provider Address: Phone: Fax: WEB RETAILER Treatment Note WEB RETAILER Clinical Instructor Line Start: 08/02/22 12:22 Freq: Status: Active Protocol: Document 08/29/22 14:40 BE (Rec: 08/29/22 15:09 BE [id number]) Clinical Instructor Signature Clinical Instructor Clinical Instructor Yes WEB RETAILER Treatment Note Start: 06/22/22 18:08 Freq: Status: Active Protocol: Document 08/29/22 14:40 BE (Rec: 08/29/22 15:09 BE [id number]) Speech Pathology Treatment Note Session Time Visit Start Time 11:45 Visit Stop Time 12:30 Total Visit Minutes 45 Visit Information Visit Number 8 Plan of Care Dates 06/22/22-10/22/22 Setting Treatment Setting Outpatient Care Visit Type Note Type Treatment Note Next Note Type Next Note Type Treatment Note General Information Patient History Pt is a 31 year old male 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 According to his parents, who accompanied him, the pt was found down after falling. pt was unconscious and emergency responders wer called. Pt was air lifted to [facility] where he remained in a coma for 16 days. Pt underwent an craniotomy to remove an epidural hematoma. Initial Baylis score was 2. Pt remained in ICU until 05/14/22 and subsequently entered inpatient rehab at [facility] and was discharged on 05/30/22. Out patient OT, PT and ST therapies were recommended. According to his parents, the pt is a shy and quiet young man. He lives at home with his parents. He was working at [employer] prior to his accident and wishes to return to [employer] to work in the future. Subjective Identification Type Name,Date of Others Present Family Observations/Patient Presentation Anirudh and his father attended therapy. Anirudh ambulated independently, without use of walker. Father reported upcoming consultation with ENT for Anirudh's hearing loss in right ear towards end of August. He stated that Anirudh's current leave of absence from work ends September 29, but that it can be extended with proof of need from his doctor. 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 3) pt will complete modeerately difficult problem-solving tasks independently with use of strategies provided without cues/assistance at 65% opportunities COGNITION: 1) Pt will reference and utilize external memory sides for safety information, daily information , use of memory book or other assistive devices daily without cues/reminders from others, per parent/patient report. 2) Pt will communicate /converse with others on familiar topics using strategies for WFD difficulty and word generation without cues at 65% opportunities. 3) pt will complete moderately difficult problem-solving tasks independently with use of strategies provided without cues/assistance at 65% opportunities [ End ] Correction Goals Pt will return to work Treatment Activities Reviewed home practice- Anirudh reported follow through with video games with background noise as a distractor, but not doing worksheets, phone apps, or boardgames for mental stimulation. Anirudh reported buying several books- recommended attempting to read short passages and check for understanding/retention with parent. Provided Anirudh with worksheets for home use. Pt reported limited follow through with notebook use- he currently uses it for medication reminders and occasionally as a memory aid. In order to increase independence, recommended increased frequency of use, including during daily activities (OT, PT, to-do lists, things to remember, etc .). Targeted word retrieval using semantic feature analysis (SFA). Anirudh demonstrated success with expanding responses and providing specific language when given frequent cueing. Assessment Patient Response to Treatment Good Rehab Potential Good Impairments Identified Expressive language,Cognitive communication,Pragmatics Progress Towards Goals Slow Progress Assessment of Overall Progress Improving Assessment of Improvement Anirudh is responding well to treatment. He is showing improvement in language fluency in conversation, with fewer moments of word finding challenges. Most pauses in conversation are related to memory and attention challenges. During moments of word retrieval challenges, Anirudh's use of strategies is variable. He demonstrates improved topic maintenance in conversation. Anirudh's language continues to lack specificity, and is often brief. He exhibits difficulty with thinking, expressive language, and receptive language in environments with noise competition. Continued improvement is dependent on follow through with HEP. Reviewed with Patient Home Exercise Program Patient/Caregiver Understanding Good Plan Amount of Therapy Recommended 6 Months Frequency of Treatment Once a Week Length of Session 45 Minutes Therapeutic Contents Cognitive-Linguistic Training Provided Patient/Caregiver Instruction Home Exercise Program,Other Comment information/worksheets Therapy Recommendations Continue with Current Program
--- NOTE | 2022-08-31 16:35 | ST.OPDS ---
Visit Care Team Role Provider Type KIMI Robbins Family Provider Non-Staff Primary Care Provider Address: [address], [address], [place], [address] Attending Provider Referring Provider Address: Phone: Fax: CENSUS CLERK Treatment Note CENSUS CLERK Clinical Instructor Line Start: 08/02/22 12:22 Freq: Status: Active Protocol: Document 08/29/22 14:40 BE (Rec: 08/29/22 15:09 BE [id number]) Clinical Instructor Signature Clinical Instructor Clinical Instructor Yes CENSUS CLERK Treatment Note Start: 06/22/22 18:08 Freq: Status: Active Protocol: Document 08/31/22 16:22 LNK (Rec: 08/31/22 16:29 LNK [id number]) Speech Pathology Treatment Note Setting Treatment Setting Outpatient Care Visit Type Note Type Discharge Summary General Information Patient History Pt is a 31 year old male rferred for treatment following TBI on 03/12/22. According to his parents, who accompanied him, the pt was found down after falling. pt was unconscious and emergency responders wer called. Pt was air lifted to [facility] where he remained in a coma for 16 days. Pt underwenrt an craniotomy to remove an epidural hematoma. Initial [place] score was 2. Pt remained in ICU until 05/14/22 and subsequently entered inpatient rehab at [facility] and was discharged on 05/30/22. Out patient OT, PT and ST therapies were recommended. According to his parents, the pt is a shy and quiet young man. He lives at home with his parents. He was working at [employer] prior to his accident and wishes to return to [employer] to work in the future. Subjective Observations/Patient Presentation Anirudh's father attends with him and is able to aid Anirudh in home-based therapeutic activities. Father reports upcoming consultation with ENT for Justins hearing loss in right ear towards end of August. Rehab Expectation/Goals: Patient Goals To go back to work Patient Knowledge/Awareness of CENSUS CLERK Role Good in Treatment Parent/Caretake Knowledge/Awareness of Good CENSUS CLERK Role in Treatment Objective Short Term Goals LANGUAGE: Pt will communicate/ converse with others on familiar topics using strategies for WFD difficulty and word generation without cues at 65% opportunities. 3) pt will complete moderately difficult problem-solving tasks independently with use of strategies provided without cues/assistance at 65% opportunities COGNITION: 1) Pt will reference and utilize external memory sides for safety information, daily information , use of memory book or other assistive devices daily without cues/reminders from others, per parent/patient report. 2) Pt will communicate /converse with others on familiar topics using strategies for WFD difficulty and word generation without cues at 65% opportunities. 3) pt will complete moderately difficult problem-solving tasks independently with use of strategies provided without cues/assistance at 65% opportunities [ End ] [facility]ci Goals Pt will return to work Assessment Patient Response to Treatment Good Rehab Potential Good Impairments Identified Expressive language,Cognitive communication,Pragmatics Progress Towards Goals Slow Progress Assessment of Improvement Anirudh is responding well to treatment. He is showing improvement in language fluency in conversation, with fewer moments of word finding challenges. Anirudh has also improved conversation skills including topic maintenance. Reviewed with Patient Progress Being Made,Home Exercise Program Patient/Caregiver Understanding Good Plan Amount of Therapy Recommended 6 Months Frequency of Treatment Once a Week Length of Session 45 Minutes Treatment Emphasis Next Session Pt has requested discharge to transition to new CENSUS CLERK due to staffing changes Therapeutic Contents Cognitive-Linguistic Training
== END 2022-09-01 09:48 | disposition home or self-care (01) ==
LOC: SP 11:45
PROVIDERS: Absent Provider Nurse Practitioner; Family Provider Nurse Practitioner; PCP Nurse Practitioner
DX: S06.9XAA Unspecified intracranial injury with loss of consciousness status unknown, initial encounter (principal)
CPT/HCPCS: 96105; 96125; 97129; 97130

== ENCOUNTER 2022-10-24 12:45 | Outpatient (RCR) | payer OTHER, MEDICAID, SELFPAY ==
--- NOTE | 2022-06-16 16:00 | PT.OPPOC ---
Physical, Occupational & Speech Therapy At [facility] Current Diagnoses Other abnormalities of gait and mobility (06/16/22) Unspecified intracranial injury with loss of consciousness status unknown, initial encounter (06/16/22) Visit Care Team Role Provider Type KIMI Robbins Family Provider Non-Staff Primary Care Provider Specialty: Nursing Address: [facility] [address], [address], [place], [address] Email: Attending Provider Referring Provider Specialty: Address: Phone: Fax: Email: Plan Of Care PT-OP-T Assessment and Plan Start: 06/14/22 15:34 Freq: Status: Active Protocol: Document 06/16/22 14:30 AMB (Rec: 06/18/22 21:07 AMB [id number]) Physical Therapy Assessment Rehab Potential Rehabilitation Potential Good Evaluation Complexity Number of Personal Factors/Comorbidities 3 or More Number of Body Systems Impaired 4 or More Clinical Presentation at Evaluation Evolving Impairments Impairments Activity Tolerance,Balance, Coordination,Edema,Functional Activities,Functional Mobility ,Gait,ROM,Sensation,Strength, Tone,Transfers Goals Sit to stand Short Term Goal (STG) Sandeep will move from sit to stand from a low seat (toilet) without using upper body support. STG Duration 6 weeks HEP Short Term Goal (STG) Sandeep will be independent and consitent with a HEP to improve his strength balance and gait. STG Duration 6 weeks Balance Short Term Goal (STG) Sandeep will improve his DGI score to at least 20/24 to show improved dynamic balance and lower fall risk. STG Duration 6 weeks Alf Goal (LTG) Sandeep will be able to ambulate without AD over uneven terrain including curbs, grass and gravel without loss of balance while maintaining conversation to show improved dual task and balance ability. LTG Duration 12 weeks Gait Short Term Goal (STG) Sandeep will ambulate over smooth terrain without an assistive device with SBA without LOB for 6 minutes. STG Duration 6 weeks Secondary English Teacher Goal (LTG) Sandeep will ascend and descend a flight of stairs with SBA and alternating steps with 1 railing. LTG Duration 12 weeks Assessment Summary Assessment Sandeep attends outpatient physical therapy after a 2 month hospital stay for TBI. He just finished inpatient rehab and is living with his parents in their 3 bedroom mobile home. He currently is using a 4WW for ambulation and his parents are providing supervision for all activities . He did present as a fall risk with DGI score of 15/24. Extra time taken to discuss fall risk with parents and patient, with discussion of avoiding rushing/distraction/ fatigue it order to avoid falling. Pt currently spends the majority of his time at home with his parents, sitting . Encouraged in frequent movement throughout the house and continuing with inpatient rehab HEP which he has done a couple of times, but not really been consistent with. Pt shows most tone/weakness/ ROM restriction in L foot. Does have an off the shelf AFO but it sounds like it is rubbing against the foot and the pt does not want to wear it at this time. Does show foot drop with walking on the L. 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 Physical Therapy Plan Frequency and Duration Frequency of Treatment 2x/Week Duration of treatment (weeks) 12 Plan of Care Start Date 06/16/22 Plan of Care End Date 09/08/22 Therapeutic Interventions Therapeutic Interventions Gait Training,Home Exercise Program,Manual Therapy, Neuromuscular Re-education, Self-Care/Home Management, Therapeutic Activities, Therapeutic Exercises Next Visit Focus/Plan Next Note Type Treatment Note Next Visit Plan Sit to stand progression, ankle/toe strengthening, gait training Plan of Care Dates Plan of Care Start Date 06/16/22 Plan of Care End Date 09/08/22 Electronically Signed by: Karina Kasper, PT 06/19/22 [id number] If you are in agreement with this Plan of Care, please return a signed and dated copy. I have reviewed this Plan of Care and certify that the skilled therapy services above are required to meet the patient?s needs. Physician Signature Date Printed Name and Credentials Clinical Instructor Signature Printed Name and Credentials
--- NOTE | 2022-06-16 16:00 | PT.OIE ---
Current Diagnoses Unspecified intracranial injury with loss of consciousness status unknown, initial encounter (06/16/22) Visit Care Team Role Provider Type KIMI Robbins Family Provider Non-Staff Primary Care Provider Specialty: Nursing Address: [facility] [address], [address], [place], [address] Email: Attending Provider Referring Provider Specialty: Address: Phone: Fax: Email: Physical Therapy Initial Evaluation PT-OP-A Visit Information Start: 06/14/22 15:34 Freq: Status: Active Protocol: Document 06/16/22 14:32 AMB (Rec: 06/16/22 15:55 AMB [id number]) Out-Patient Physical Therapy Visit Information Visit Information Visit Type Initial Evaluation Visit Start Time 14:30 Visit Stop Time 15:15 Total Visit Minutes 45 Visit Number 1 Precautions Precautions Deaf in R ear PT-OP-B Current Condition Start: 06/14/22 15:34 Freq: Status: Active Protocol: Document 06/16/22 14:32 AMB (Rec: 06/16/22 15:55 AMB [id number]) Current Condition History of Current Condition Onset Date 03/12/23 Current Complaints TBI s/p R craniotomy History of Current Condition [facility] TBI has been home since end of May. R femoral artery blood clot while hospitalized. 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 Bilateral foot pressure. Goes to [employer], goes out to eat with family, otherwise mostly at home. Was given L AFO but doesn't really use it because it is uncomfortable, currently using 4WW also has standard walker. 5 steps to enter with one railing at home. 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 Enjoyed movies/videogames. Personal Factors Other Personal Factors That May Effect Baseline social anxiety Therapy/Recovery PT-OP-E Functional Tests Start: 06/14/22 15:34 Freq: Status: Active Protocol: Document 06/16/22 14:30 AMB (Rec: 06/16/22 16:01 AMB [id number]) Functional Tests Dynamic Gait Index (DGI) Score 15 DGI Impairment Rating 20 to <40% Impaired (Score 15- 19) PT-OP-G Mobility & Gait Start: 06/14/22 15:34 Freq: Status: Active Protocol: Document 06/16/22 14:30 AMB (Rec: 06/18/22 19:07 AMB [id number]) OP Gait Assessment Comments Gait Comments Pt ambulating with 4WW, without off the shelf L AFO as pt finds in uncomfortable. Does have poor heel strike and toe off moreso on the left but impaired bilaterally. Gait safety fatigues with dual tasking and pathfinding. 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 PT-OP-H Neuro Start: 06/14/22 15:34 Freq: Status: Active Protocol: Document 06/16/22 14:30 AMB (Rec: 06/18/22 19:07 AMB [id number]) Sensation Evaluation Comments Summary Comments 100% proprioception at ankles bilateral, lacking light touch along medial aspect of left foot, good deep pressure Muscle Tone Tone Assessment Left Lower Extremity Flexor Tone Description Mild Hypertonicity Muscle Tone Comments L foot can go into supinated and inverted positioning, no clonus palpated by tight achilles/calves L>R PT-OP-M Strength Start: 06/14/22 15:34 Freq: Status: Active Protocol: Document 06/16/22 14:30 AMB (Rec: 06/18/22 19:07 AMB [id number]) Hip Strength Hip Manual Muscle Testing Right Flexion (L2) 4+ Good+ Extension (S1) 4+ Good+ Abduction 4+ Good+ Left Flexion (L2) 4 Good Extension (S1) 4 Good Abduction 4 Good Knee Strength Knee Manual Muscle Testing Right Flexion (S2) 5 Normal Extension (L3) 5 Normal Left Flexion (S2) 4+ Good+ Extension (L3) 4+ Good+ Ankle/Foot Strength Ankle and Foot Manual Muscle Testing Right Dorsiflexion (L4) 4 Good Plantarflexion (S1) 4 Good Left Dorsiflexion (L4) 3- Fair- Plantarflexion (S1) 3- Fair- Toe Strength Toe Manual Muscle Testing Right Great Toe Flexion 5 Normal Extension 3 Fair Left Great Toe Flexion 4 Good Extension 1 Trace PT-OP-T Assessment and Plan Start: 06/14/22 15:34 Freq: Status: Active Protocol: Document 06/16/22 14:30 AMB (Rec: 06/18/22 21:07 AMB [id number]) Physical Therapy Assessment Rehab Potential Rehabilitation Potential Good Evaluation Complexity Number of Personal Factors/Comorbidities 3 or More Number of Body Systems Impaired 4 or More Clinical Presentation at Evaluation Evolving Impairments Impairments Activity Tolerance,Balance, Coordination,Edema,Functional Activities,Functional Mobility ,Gait,ROM,Sensation,Strength, Tone,Transfers Goals Sit to stand Short Term Goal (STG) Sandeep will move from sit to stand from a low seat (toilet) without using upper body support. STG Duration 6 weeks HEP Short Term Goal (STG) Sandeep will be independent and consitent with a HEP to improve his strength balance and gait. STG Duration 6 weeks Balance Short Term Goal (STG) Sandeep will improve his DGI score to at least 20/24 to show improved dynamic balance and lower fall risk. STG Duration 6 weeks Drain Cleaner Goal (LTG) Sandeep will be able to ambulate without AD over uneven terrain including curbs, grass and gravel without loss of balance while maintaining conversation to show improved dual task and balance ability. LTG Duration 12 weeks Gait Short Term Goal (STG) Sandeep will ambulate over smooth terrain without an assistive device with SBA without LOB for 6 minutes. STG Duration 6 weeks Drain Cleaner Goal (LTG) Sandeep will ascend and descend a flight of stairs with SBA and alternating steps with 1 railing. LTG Duration 12 weeks Assessment Summary Assessment Sandeep attends outpatient physical therapy after a 2 month hospital stay for TBI. He just finished inpatient rehab and is living with his parents in their 3 bedroom mobile home. He currently is using a 4WW for ambulation and his parents are providing supervision for all activities . He did present as a fall risk with DGI score of 15/24. Extra time taken to discuss fall risk with parents and patient, with discussion of avoiding rushing/distraction/ fatigue it order to avoid falling. Pt currently spends the majority of his time at home with his parents, sitting . Encouraged in frequent movement throughout the house and continuing with inpatient rehab HEP which he has done a couple of times, but not really been consistent with. Pt shows most tone/weakness/ ROM restriction in L foot. Does have an off the shelf AFO but it sounds like it is rubbing against the foot and the pt does not want to wear it at this time. Does show foot drop with walking on the L. 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 Physical Therapy Plan Frequency and Duration Frequency of Treatment 2x/Week Duration of treatment (weeks) 12 Plan of Care Start Date 06/16/22 Plan of Care End Date 09/08/22 Therapeutic Interventions Therapeutic Interventions Gait Training,Home Exercise Program,Manual Therapy, Neuromuscular Re-education, Self-Care/Home Management, Therapeutic Activities, Therapeutic Exercises Next Visit Focus/Plan Next Note Type Treatment Note Next Visit Plan Sit to stand progression, ankle/toe strengthening, gait training
--- NOTE | 2022-06-16 16:00 | PT.OPPOC ---
Physical, Occupational & Speech Therapy At [facility] Current Diagnoses Unspecified intracranial injury with loss of consciousness status unknown, initial encounter (06/16/22) Visit Care Team Role Provider Type KIMI Robbins Family Provider Non-Staff Primary Care Provider Specialty: Nursing Address: [facility] [address], [address], [place], [address] Email: Attending Provider Referring Provider Specialty: Address: Phone: Fax: Email: Plan Of Care PT-OP-T Assessment and Plan Start: 06/14/22 15:34 Freq: Status: Active Protocol: Document 06/16/22 14:30 AMB (Rec: 06/18/22 21:07 AMB [id number]) Physical Therapy Assessment Rehab Potential Rehabilitation Potential Good Evaluation Complexity Number of Personal Factors/Comorbidities 3 or More Number of Body Systems Impaired 4 or More Clinical Presentation at Evaluation Evolving Impairments Impairments Activity Tolerance,Balance, Coordination,Edema,Functional Activities,Functional Mobility ,Gait,ROM,Sensation,Strength, Tone,Transfers Goals Sit to stand Short Term Goal (STG) Sandeep will move from sit to stand from a low seat (toilet) without using upper body support. STG Duration 6 weeks HEP Short Term Goal (STG) Sandeep will be independent and consitent with a HEP to improve his strength balance and gait. STG Duration 6 weeks Balance Short Term Goal (STG) Sandeep will improve his DGI score to at least 20/24 to show improved dynamic balance and lower fall risk. STG Duration 6 weeks Alf Goal (LTG) Sandeep will be able to ambulate without AD over uneven terrain including curbs, grass and gravel without loss of balance while maintaining conversation to show improved dual task and balance ability. LTG Duration 12 weeks Gait Short Term Goal (STG) Sandeep will ambulate over smooth terrain without an assistive device with SBA without LOB for 6 minutes. STG Duration 6 weeks Alf Goal (LTG) Sandeep will ascend and descend a flight of stairs with SBA and alternating steps with 1 railing. LTG Duration 12 weeks Assessment Summary Assessment Sandeep attends outpatient physical therapy after a 2 month hospital stay for TBI. He just finished inpatient rehab and is living with his parents in their 3 bedroom mobile home. He currently is using a 4WW for ambulation and his parents are providing supervision for all activities . He did present as a fall risk with DGI score of 15/24. Extra time taken to discuss fall risk with parents and patient, with discussion of avoiding rushing/distraction/ fatigue it order to avoid falling. Pt currently spends the majority of his time at home with his parents, sitting . Encouraged in frequent movement throughout the house and continuing with inpatient rehab HEP which he has done a couple of times, but not really been consistent with. Pt shows most tone/weakness/ ROM restriction in L foot. Does have an off the shelf AFO but it sounds like it is rubbing against the foot and the pt does not want to wear it at this time. Does show foot drop with walking on the L. 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 Physical Therapy Plan Frequency and Duration Frequency of Treatment 2x/Week Duration of treatment (weeks) 12 Plan of Care Start Date 06/16/22 Plan of Care End Date 09/08/22 Therapeutic Interventions Therapeutic Interventions Gait Training,Home Exercise Program,Manual Therapy, Neuromuscular Re-education, Self-Care/Home Management, Therapeutic Activities, Therapeutic Exercises Next Visit Focus/Plan Next Note Type Treatment Note Next Visit Plan Sit to stand progression, ankle/toe strengthening, gait training Plan of Care Dates Plan of Care Start Date 06/16/22 Plan of Care End Date 09/08/22 Electronically Signed by: Karina Kasper, PT 06/19/22 0944 If you are in agreement with this Plan of Care, please return a signed and dated copy. I have reviewed this Plan of Care and certify that the skilled therapy services above are required to meet the patient?s needs. Physician Signature Date Printed Name and Credentials Clinical Instructor Signature Printed Name and Credentials
--- NOTE | 2022-06-20 12:32 | PT.OTN ---
Current Diagnoses Other abnormalities of gait and mobility (06/20/22) Unspecified intracranial injury with loss of consciousness status unknown, initial encounter (06/20/22) Physical Therapy Treatment Note PT-OP-A Visit Information Start: 06/14/22 15:34 Freq: Status: Active Protocol: Document 06/20/22 10:54 AMB (Rec: 06/20/22 12:13 AMB [id number]) Out-Patient Physical Therapy Visit Information Visit Information Visit Type Treatment Note Visit Start Time 10:30 Visit Stop Time 11:15 Total Visit Minutes 45 Visit Number 2 PT-OP-B Current Condition Start: 06/14/22 15:34 Freq: Status: Active Protocol: Document 06/16/22 14:32 AMB (Rec: 06/16/22 15:55 AMB [id number]) Current Condition History of Current Condition Onset Date 03/12/23 Current Complaints TBI s/p R craniotomy History of Current Condition [facility] TBI has been home since end of May. R femoral artery blood clot while hospitalized. 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 Bilateral foot pressure. Goes to [employer], goes out to eat with family, otherwise mostly at home. Was given L AFO but doesn't really use it because it is uncomfortable, currently using 4WW also has standard walker. 5 steps to enter with one railing at home. 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 Enjoyed movies/videogames. Personal Factors Other Personal Factors That May Effect Baseline social anxiety Therapy/Recovery PT-OP-C Subjective Start: 06/14/22 15:34 Freq: Status: Active Protocol: Document 06/20/22 10:54 AMB (Rec: 06/20/22 12:13 AMB [id number]) OP-PT Subjective Patient Comments Patient Comments Sandeep attends with his parents. they state they spent about 30-40 minutes in the grocery store this weekend and he was with his walker and walking the whole time. PT-OP-E Functional Tests Start: 06/14/22 15:34 Freq: Status: Active Protocol: Document 06/16/22 14:30 AMB (Rec: 06/16/22 16:01 AMB [id number]) Functional Tests Dynamic Gait Index (DGI) Score 15 DGI Impairment Rating 20 to <40% Impaired (Score 15- 19) PT-OP-G Mobility & Gait Start: 06/14/22 15:34 Freq: Status: Active Protocol: Document 06/16/22 14:30 AMB (Rec: 06/18/22 19:07 AMB [id number]-) OP Gait Assessment Comments Gait Comments Pt ambulating with 4WW, without off the shelf L AFO as pt finds in uncomfortable. Does have poor heel strike and toe off moreso on the left but impaired bilaterally. Gait safety fatigues with dual tasking and pathfinding. Stair Climbing Evaluation Comments Stair Climbing Comments Ambulates with step to patterning with CGA and 1 railing-pt using sidestepping at home currently because it is more difficult to casing cleaner his railing. PT-OP-H Neuro Start: 06/14/22 15:34 Freq: Status: Active Protocol: Document 06/16/22 14:30 AMB (Rec: 06/18/22 19:07 AMB [id number]-) Sensation Evaluation Comments Summary Comments 100% proprioception at ankles bilateral, lacking light touch along medial aspect of left foot, good deep pressure Muscle Tone Tone Assessment Left Lower Extremity Flexor Tone Description Mild Hypertonicity Muscle Tone Comments L foot can go into supinated and inverted positioning, no clonus palpated by tight achilles/calves L>R PT-OP-M Strength Start: 06/14/22 15:34 Freq: Status: Active Protocol: Document 06/16/22 14:30 AMB (Rec: 06/18/22 19:07 AMB [id number]-) Hip Strength Hip Manual Muscle Testing Right Flexion (L2) 4+ Good+ Extension (S1) 4+ Good+ Abduction 4+ Good+ Left Flexion (L2) 4 Good Extension (S1) 4 Good Abduction 4 Good Knee Strength Knee Manual Muscle Testing Right Flexion (S2) 5 Normal Extension (L3) 5 Normal Left Flexion (S2) 4+ Good+ Extension (L3) 4+ Good+ Ankle/Foot Strength Ankle and Foot Manual Muscle Testing Right Dorsiflexion (L4) 4 Good Plantarflexion (S1) 4 Good Left Dorsiflexion (L4) 3- Fair- Plantarflexion (S1) 3- Fair- Toe Strength Toe Manual Muscle Testing Right Great Toe Flexion 5 Normal Extension 3 Fair Left Great Toe Flexion 4 Good Extension 1 Trace PT-OP-Q Treatments Start: 06/14/22 15:34 Freq: Status: Active Protocol: Document 06/20/22 10:54 AMB (Rec: 06/20/22 12:13 AMB [id number]) Therapeutic Exercises Sitting Exercises toe tapping Reps/Minutes 2x10 Gait Training Gait Activity without AD Description 200' with mom with 4WW following Level of Assistance CGA Surface smooth stairs Device Used railing, gait belt Comments 4 and 6, 1 railing, step to gait pattern Neuro Re-Education Treatment Balance Activities 2 Details corner balance Comments NBOS EO; NBOS EC; NBOS EO HT-- intermittent touching down, increased ankle sway weightshift Comments in stride stance fwd with heel and toe lift alternating-- CGA needs intermittent touch on railing hurdles Details in // bars Comments CGA light touch on bars intermittantly 1 Details foam balance Comments blue modified tandem EC EO HT PT-OP-T Assessment and Plan Start: 06/14/22 15:34 Freq: Status: Active Protocol: Document 06/20/22 10:54 AMB (Rec: 06/20/22 12:13 AMB [id number]) Physical Therapy Assessment Goals Sit to stand Short Term Goal (STG) Sandeep will move from sit to stand from a low seat (toilet) without using upper body support. STG Duration 6 weeks HEP Short Term Goal (STG) Sandeep will be independent and consitent with a HEP to improve his strength balance and gait. STG Duration 6 weeks Balance Short Term Goal (STG) Sandeep will improve his DGI score to at least 20/24 to show improved dynamic balance and lower fall risk. STG Duration 6 weeks Custodial Goal (LTG) Sandeep will be able to ambulate without AD over uneven terrain including curbs, grass and gravel without loss of balance while maintaining conversation to show improved dual task and balance ability. LTG Duration 12 weeks Gait Short Term Goal (STG) Sandeep will ambulate over smooth terrain without an assistive device with SBA without LOB for 6 minutes. STG Duration 6 weeks Test Skein Winder Goal (LTG) Sandeep will ascend and descend a flight of stairs with SBA and alternating steps with 1 railing. LTG Duration 12 weeks Assessment Summary Assessment Sandeep was able to ambulate wiht CGA without AD, does shorten his stride length in comparison to 4WW. Given corner balance HO, asked parents to encourage daily exercise. Physical Therapy Plan Frequency and Duration Frequency of Treatment 2x/Week Duration of treatment (weeks) 12 Plan of Care Start Date 06/16/22 Plan of Care End Date 09/08/22 Therapeutic Interventions Therapeutic Interventions Gait Training,Home Exercise Program,Manual Therapy, Neuromuscular Re-education, Self-Care/Home Management, Therapeutic Activities, Therapeutic Exercises Next Visit Focus/Plan Next Note Type Treatment Note Next Visit Plan Sit to stand progression, ankle/toe strengthening, gait training progressing to without AD, balance progression, consider dual task/increasing distractions as able
--- NOTE | 2022-06-29 17:05 | PT.OTN ---
Current Diagnoses Other abnormalities of gait and mobility (06/29/22) Unspecified intracranial injury with loss of consciousness status unknown, initial encounter (06/29/22) Physical Therapy Treatment Note PT-OP-A Visit Information Start: 06/14/22 15:34 Freq: Status: Active Protocol: Document 06/29/22 16:51 TH (Rec: 06/29/22 17:05 TH [id number]) Out-Patient Physical Therapy Visit Information Visit Information Visit Type Treatment Note Visit Start Time 13:45 Visit Stop Time 14:30 Total Visit Minutes 45 Visit Number 3 Number of MECHANICAL HANDYMAN Visits 0 PT-OP-B Current Condition Start: 06/14/22 15:34 Freq: Status: Active Protocol: Document 06/16/22 14:32 AMB (Rec: 06/16/22 15:55 AMB [id number]) Current Condition History of Current Condition Onset Date 03/12/23 Current Complaints TBI s/p R craniotomy History of Current Condition [facility] TBI has been home since end of May. R femoral artery blood clot while hospitalized. 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 Bilateral foot pressure. Goes to [employer], goes out to eat with family, otherwise mostly at home. Was given L AFO but doesn't really use it because it is uncomfortable, currently using 4WW also has standard walker. 5 steps to enter with one railing at home. 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 Enjoyed movies/videogames. Personal Factors Other Personal Factors That May Effect Baseline social anxiety Therapy/Recovery PT-OP-C Subjective Start: 06/14/22 15:34 Freq: Status: Active Protocol: Document 06/29/22 16:51 TH (Rec: 06/29/22 17:05 TH [id number]) OP-PT Subjective Patient Comments Patient Comments Pt's mother stated that he has been ambulating with 4WW IND and at times walking without walker short distances in home while holding items such as a coffee mug. PT-OP-E Functional Tests Start: 06/14/22 15:34 Freq: Status: Active Protocol: Document 06/16/22 14:30 AMB (Rec: 06/16/22 16:01 AMB [id number]) Functional Tests Dynamic Gait Index (DGI) Score 15 DGI Impairment Rating 20 to <40% Impaired (Score 15- 19) PT-OP-G Mobility & Gait Start: 06/14/22 15:34 Freq: Status: Active Protocol: Document 06/16/22 14:30 AMB (Rec: 06/18/22 19:07 AMB [id number]-) OP Gait Assessment Comments Gait Comments Pt ambulating with 4WW, without off the shelf L AFO as pt finds in uncomfortable. Does have poor heel strike and toe off moreso on the left but impaired bilaterally. Gait safety fatigues with dual tasking and pathfinding. 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 PT-OP-H Neuro Start: 06/14/22 15:34 Freq: Status: Active Protocol: Document 06/16/22 14:30 AMB (Rec: 06/18/22 19:07 AMB [id number]-) Sensation Evaluation Comments Summary Comments 100% proprioception at ankles bilateral, lacking light touch along medial aspect of left foot, good deep pressure Muscle Tone Tone Assessment Left Lower Extremity Flexor Tone Description Mild Hypertonicity Muscle Tone Comments L foot can go into supinated and inverted positioning, no clonus palpated by tight achilles/calves L>R PT-OP-M Strength Start: 06/14/22 15:34 Freq: Status: Active Protocol: Document 06/16/22 14:30 AMB (Rec: 06/18/22 19:07 AMB [id number]-) Hip Strength Hip Manual Muscle Testing Right Flexion (L2) 4+ Good+ Extension (S1) 4+ Good+ Abduction 4+ Good+ Left Flexion (L2) 4 Good Extension (S1) 4 Good Abduction 4 Good Knee Strength Knee Manual Muscle Testing Right Flexion (S2) 5 Normal Extension (L3) 5 Normal Left Flexion (S2) 4+ Good+ Extension (L3) 4+ Good+ Ankle/Foot Strength Ankle and Foot Manual Muscle Testing Right Dorsiflexion (L4) 4 Good Plantarflexion (S1) 4 Good Left Dorsiflexion (L4) 3- Fair- Plantarflexion (S1) 3- Fair- Toe Strength Toe Manual Muscle Testing Right Great Toe Flexion 5 Normal Extension 3 Fair Left Great Toe Flexion 4 Good Extension 1 Trace PT-OP-Q Treatments Start: 06/14/22 15:34 Freq: Status: Active Protocol: Document 06/29/22 16:51 TH (Rec: 06/29/22 17:05 TH [id number]) Gait Training Gait Activity without AD Description 50 feet x 4 Level of Assistance CG Surface smooth Comments Working on LLE control and armswing Neuro Re-Education Treatment Balance Activities weightshift Comments staggered stance on foam cushions. weight shift fwd back CG no hands. Noted left ankle rolling out. hurdles Details in // bars Comments Light touch and without holding on. CG. Pt using left leg to lead Other Activities obstacle course in // bars Comments one hand to no hand support / CG. foam cushions and air pods heel raises with mirror Comments Heel raises with pt correcting left ankle position by using mirror for feedback to improve ankle control. Trajectory ex. Comments -quick toe taps to 2 in ch step - light touch with left foot to air pump to promote control of LLE while ambulating. PT-OP-T Assessment and Plan Start: 06/14/22 15:34 Freq: Status: Active Protocol: Document 06/29/22 16:51 TH (Rec: 06/29/22 17:05 TH [id number]) Physical Therapy Assessment Goals Sit to stand Short Term Goal (STG) Sandeep will move from sit to stand from a low seat (toilet) without using upper body support. STG Duration 6 weeks HEP Short Term Goal (STG) Sandeep will be independent and consitent with a HEP to improve his strength balance and gait. STG Duration 6 weeks Balance Short Term Goal (STG) Sandeep will improve his DGI score to at least 20/24 to show improved dynamic balance and lower fall risk. STG Duration 6 weeks Tap Dancer Goal (LTG) Sandeep will be able to ambulate without AD over uneven terrain including curbs, grass and gravel without loss of balance while maintaining conversation to show improved dual task and balance ability. LTG Duration 12 weeks Gait Short Term Goal (STG) Sandeep will ambulate over smooth terrain without an assistive device with SBA without LOB for 6 minutes. STG Duration 6 weeks Tap Dancer Goal (LTG) Sandeep will ascend and descend a flight of stairs with SBA and alternating steps with 1 railing. LTG Duration 12 weeks Assessment Summary Assessment Pt is making steady progress. He is able to make corretions quickly when cued and has been working on HEP at home with parents. Will continue POC. Physical Therapy Plan Frequency and Duration Frequency of Treatment 2x/Week Duration of treatment (weeks) 12 Plan of Care Start Date 06/16/22 Plan of Care End Date 09/08/22 Therapeutic Interventions Therapeutic Interventions Gait Training,Home Exercise Program,Manual Therapy, Neuromuscular Re-education, Self-Care/Home Management, Therapeutic Activities, Therapeutic Exercises
--- NOTE | 2022-07-04 10:08 | PT.OTN ---
Current Diagnoses Other abnormalities of gait and mobility (07/04/22) Unspecified intracranial injury with loss of consciousness status unknown, initial encounter (07/04/22) Physical Therapy Treatment Note PT-OP-A Visit Information Start: 06/14/22 15:34 Freq: Status: Active Protocol: Document 07/04/22 09:04 TH (Rec: 07/04/22 10:08 [id number]) Out-Patient Physical Therapy Visit Information Visit Information Visit Type Treatment Note Visit Start Time 09:00 Visit Stop Time 09:45 Total Visit Minutes 45 Visit Number 4 Number of ADDRESSER Visits 0 PT-OP-B Current Condition Start: 06/14/22 15:34 Freq: Status: Active Protocol: Document 06/16/22 14:32 AMB (Rec: 06/16/22 15:55 AMB [id number]) Current Condition History of Current Condition Onset Date 03/12/23 Current Complaints TBI s/p R craniotomy History of Current Condition [facility] TBI has been home since end of May. R femoral artery blood clot while hospitalized. 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 Bilateral foot pressure. Goes to [employer], goes out to eat with family, otherwise mostly at home. Was given L AFO but doesn't really use it because it is uncomfortable, currently using 4WW also has standard walker. 5 steps to enter with one railing at home. 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 Enjoyed movies/videogames. Personal Factors Other Personal Factors That May Effect Baseline social anxiety Therapy/Recovery PT-OP-C Subjective Start: 06/14/22 15:34 Freq: Status: Active Protocol: Document 07/04/22 09:04 TH (Rec: 07/04/22 10:08 [id number]) OP-PT Subjective Patient Comments Patient Comments Pt reports he has been feeling a little more unsteady after having mri last week.Pt and pt 's parents deny falls since last visit. Pt';s father has been having Sandeep help with daily activities such as cooking. PT-OP-E Functional Tests Start: 06/14/22 15:34 Freq: Status: Active Protocol: Document 06/16/22 14:30 AMB (Rec: 06/16/22 16:01 AMB [id number]) Functional Tests Dynamic Gait Index (DGI) Score 15 DGI Impairment Rating 20 to <40% Impaired (Score 15- 19) PT-OP-G Mobility & Gait Start: 06/14/22 15:34 Freq: Status: Active Protocol: Document 06/16/22 14:30 AMB (Rec: 06/18/22 19:07 AMB [id number]) OP Gait Assessment Comments Gait Comments Pt ambulating with 4WW, without off the shelf L AFO as pt finds in uncomfortable. Does have poor heel strike and toe off moreso on the left but impaired bilaterally. Gait safety fatigues with dual tasking and pathfinding. Stair Climbing Evaluation Comments Stair Climbing Comments Ambulates with step to patterning with CGA and 1 railing-pt using sidestepping at home currently because it is more difficult to desk director his railing. PT-OP-H Neuro Start: 06/14/22 15:34 Freq: Status: Active Protocol: Document 06/16/22 14:30 AMB (Rec: 06/18/22 19:07 AMB [id number]-) Sensation Evaluation Comments Summary Comments 100% proprioception at ankles bilateral, lacking light touch along medial aspect of left foot, good deep pressure Muscle Tone Tone Assessment Left Lower Extremity Flexor Tone Description Mild Hypertonicity Muscle Tone Comments L foot can go into supinated and inverted positioning, no clonus palpated by tight achilles/calves L>R PT-OP-M Strength Start: 06/14/22 15:34 Freq: Status: Active Protocol: Document 06/16/22 14:30 AMB (Rec: 06/18/22 19:07 AMB [id number]-) Hip Strength Hip Manual Muscle Testing Right Flexion (L2) 4+ Good+ Extension (S1) 4+ Good+ Abduction 4+ Good+ Left Flexion (L2) 4 Good Extension (S1) 4 Good Abduction 4 Good Knee Strength Knee Manual Muscle Testing Right Flexion (S2) 5 Normal Extension (L3) 5 Normal Left Flexion (S2) 4+ Good+ Extension (L3) 4+ Good+ Ankle/Foot Strength Ankle and Foot Manual Muscle Testing Right Dorsiflexion (L4) 4 Good Plantarflexion (S1) 4 Good Left Dorsiflexion (L4) 3- Fair- Plantarflexion (S1) 3- Fair- Toe Strength Toe Manual Muscle Testing Right Great Toe Flexion 5 Normal Extension 3 Fair Left Great Toe Flexion 4 Good Extension 1 Trace PT-OP-Q Treatments Start: 06/14/22 15:34 Freq: Status: Active Protocol: Document 07/04/22 09:04 TH (Rec: 07/04/22 10:08 [id number]) Therapeutic Exercises Other Exercises squat to stand pivot Resistance 10 lb medicine ball Reps/Minutes 1 x 5 Comments Close CG leg press Reps/Minutes 2 x 10 both legs press/calf raises Comments 1 x 10 single leg left ( same) NU Step Comments 6 min warm up Gait Training Gait Activity without AD Description 50 feet x 2 Level of Assistance CG /SBA Surface smooth Comments Focus on increased step length , armswing and LLE control Neuro Re-Education Treatment Balance Activities weightshift Comments weight shifting to modified singleleg stance on foam cushion .( right toes touch) one hand to no hands balance. Mirror for visual cues to keep balance. Other Activities wobble board Comments Weight shift R / L with two to one hand support. obstacle course in // bars Comments one hand to no hand support / CG. foam cushions and air pods heel raises with mirror Comments Heel raises with pt correcting left ankle position by using mirror for visual feedback to improve ankle control. PT-OP-T Assessment and Plan Start: 06/14/22 15:34 Freq: Status: Active Protocol: Document 07/04/22 09:04 TH (Rec: 07/04/22 10:08 [id number]) Physical Therapy Assessment Goals Sit to stand Short Term Goal (STG) Sandeep will move from sit to stand from a low seat (toilet) without using upper body support. STG Duration 6 weeks HEP Short Term Goal (STG) Sandeep will be independent and consitent with a HEP to improve his strength balance and gait. STG Duration 6 weeks Balance Short Term Goal (STG) Sandeep will improve his DGI score to at least 20/24 to show improved dynamic balance and lower fall risk. STG Duration 6 weeks Mcfp Goal (LTG) Sandeep will be able to ambulate without AD over uneven terrain including curbs, grass and gravel without loss of balance while maintaining conversation to show improved dual task and balance ability. LTG Duration 12 weeks Gait Short Term Goal (STG) Sandeep will ambulate over smooth terrain without an assistive device with SBA without LOB for 6 minutes. STG Duration 6 weeks Mcfp Goal (LTG) Sandeep will ascend and descend a flight of stairs with SBA and alternating steps with 1 railing. LTG Duration 12 weeks Assessment Summary Assessment Pt seems to have retained skills focused on from last visit i.e. improved LLE control with gait pratice and increased L ankle control with fewer cues. Started functional training today. Pt required CG assist though handled challenge well with squat to stand pivot ex. Physical Therapy Plan Frequency and Duration Frequency of Treatment 2x/Week Duration of treatment (weeks) 12 Plan of Care Start Date 06/16/22 Plan of Care End Date 09/08/22 Therapeutic Interventions Therapeutic Interventions Gait Training,Home Exercise Program,Manual Therapy, Neuromuscular Re-education, Self-Care/Home Management, Therapeutic Activities, Therapeutic Exercises
--- NOTE | 2022-07-11 16:14 | PT.OTN ---
Current Diagnoses Other abnormalities of gait and mobility (07/11/22) Unspecified intracranial injury with loss of consciousness status unknown, initial encounter (07/11/22) Physical Therapy Treatment Note PT-OP-A Visit Information Start: 06/14/22 15:34 Freq: Status: Active Protocol: Document 07/11/22 10:42 AMB (Rec: 07/11/22 11:19 AMB [id number]) Out-Patient Physical Therapy Visit Information Visit Information Visit Type Treatment Note Visit Start Time 10:30 Visit Stop Time 11:15 Total Visit Minutes 45 Visit Number 6 PT-OP-B Current Condition Start: 06/14/22 15:34 Freq: Status: Active Protocol: Document 06/16/22 14:32 AMB (Rec: 06/16/22 15:55 AMB [id number]) Current Condition History of Current Condition Onset Date 03/12/23 Current Complaints TBI s/p R craniotomy History of Current Condition [facility] TBI has been home since end of May. R femoral artery blood clot while hospitalized. 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 Bilateral foot pressure. Goes to [employer], goes out to eat with family, otherwise mostly at home. Was given L AFO but doesn't really use it because it is uncomfortable, currently using 4WW also has standard walker. 5 steps to enter with one railing at home. 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 Enjoyed movies/videogames. Personal Factors Other Personal Factors That May Effect Baseline social anxiety Therapy/Recovery PT-OP-C Subjective Start: 06/14/22 15:34 Freq: Status: Active Protocol: Document 07/11/22 10:30 AMB (Rec: 07/11/22 16:11 AMB [id number]) OP-PT Subjective Patient Comments Patient Comments Pt continues to feel like his legs are more off after having MRI with contrast PT-OP-E Functional Tests Start: 06/14/22 15:34 Freq: Status: Active Protocol: Document 06/16/22 14:30 AMB (Rec: 06/16/22 16:01 AMB [id number]) Functional Tests Dynamic Gait Index (DGI) Score 15 DGI Impairment Rating 20 to <40% Impaired (Score 15- 19) PT-OP-G Mobility & Gait Start: 06/14/22 15:34 Freq: Status: Active Protocol: Document 06/16/22 14:30 AMB (Rec: 06/18/22 19:07 AMB [id number]) OP Gait Assessment Comments Gait Comments Pt ambulating with 4WW, without off the shelf L AFO as pt finds in uncomfortable. Does have poor heel strike and toe off moreso on the left but impaired bilaterally. Gait safety fatigues with dual tasking and pathfinding. Stair Climbing Evaluation Comments Stair Climbing Comments Ambulates with step to patterning with CGA and 1 railing-pt using sidestepping at home currently because it is more difficult to concrete grinder operator his railing. PT-OP-H Neuro Start: 06/14/22 15:34 Freq: Status: Active Protocol: Document 06/16/22 14:30 AMB (Rec: 06/18/22 19:07 AMB [id number]) Sensation Evaluation Comments Summary Comments 100% proprioception at ankles bilateral, lacking light touch along medial aspect of left foot, good deep pressure Muscle Tone Tone Assessment Left Lower Extremity Flexor Tone Description Mild Hypertonicity Muscle Tone Comments L foot can go into supinated and inverted positioning, no clonus palpated by tight achilles/calves L>R PT-OP-M Strength Start: 06/14/22 15:34 Freq: Status: Active Protocol: Document 06/16/22 14:30 AMB (Rec: 06/18/22 19:07 AMB [id number]-) Hip Strength Hip Manual Muscle Testing Right Flexion (L2) 4+ Good+ Extension (S1) 4+ Good+ Abduction 4+ Good+ Left Flexion (L2) 4 Good Extension (S1) 4 Good Abduction 4 Good Knee Strength Knee Manual Muscle Testing Right Flexion (S2) 5 Normal Extension (L3) 5 Normal Left Flexion (S2) 4+ Good+ Extension (L3) 4+ Good+ Ankle/Foot Strength Ankle and Foot Manual Muscle Testing Right Dorsiflexion (L4) 4 Good Plantarflexion (S1) 4 Good Left Dorsiflexion (L4) 3- Fair- Plantarflexion (S1) 3- Fair- Toe Strength Toe Manual Muscle Testing Right Great Toe Flexion 5 Normal Extension 3 Fair Left Great Toe Flexion 4 Good Extension 1 Trace PT-OP-Q Treatments Start: 06/14/22 15:34 Freq: Status: Active Protocol: Document 07/11/22 10:30 AMB (Rec: 07/11/22 16:11 AMB [id number]) Cardio Equipment Recumbent Elliptical (Biodex) Duration (Minutes) 10 Resistance 2 Therapeutic Exercises Other Exercises sit to stand Other Exercise Name with 10# medicine ball Reps/Minutes 10 Gait Training Gait Activity without AD Comments Ambulating with CG to SBA cues for increased step length, increasing speed, armswing. 100 x 2 Neuro Re-Education Treatment Balance Activities 3 step and HT Details CGA Comments cued 3 step then pause, turn head then repeat, no LOB rock and reach Comments in stride stance weight shift with arm swing- challenging to get ankle dorsiflexion 1 Details foam Comments with head turns vertical and horizontal Other Activities heel raises with mirror Comments Heel raises with pt correcting left ankle position by using mirror for visual feedback to improve ankle control. PT-OP-T Assessment and Plan Start: 06/14/22 15:34 Freq: Status: Active Protocol: Document 07/11/22 10:30 AMB (Rec: 07/11/22 16:11 AMB [id number]) Physical Therapy Assessment Goals Sit to stand Short Term Goal (STG) Sandeep will move from sit to stand from a low seat (toilet) without using upper body support. STG Duration MET HEP Short Term Goal (STG) Sandeep will be independent and consitent with a HEP to improve his strength balance and gait. STG Duration 6 weeks Balance Short Term Goal (STG) Sandeep will improve his DGI score to at least 20/24 to show improved dynamic balance and lower fall risk. STG Duration 6 weeks Marketing Planner Goal (LTG) Sandeep will be able to ambulate without AD over uneven terrain including curbs, grass and gravel without loss of balance while maintaining conversation to show improved dual task and balance ability. LTG Duration 12 weeks Gait Short Term Goal (STG) Sandeep will ambulate over smooth terrain without an assistive device with SBA without LOB for 6 minutes. STG Duration 6 weeks Marketing Planner Goal (LTG) Sandeep will ascend and descend a flight of stairs with SBA and alternating steps with 1 railing. LTG Duration 12 weeks Assessment Summary Assessment Pt admits he is not really doing exercises at home but is walking more. Tried to problem solve balance at the toilet (pt reports mom is still assisting with wiping after BM). Pt tolerated more balance exercises today with CGA. Physical Therapy Plan Frequency and Duration Frequency of Treatment 2x/Week Duration of treatment (weeks) 12 Plan of Care Start Date 06/16/22 Plan of Care End Date 09/08/22 Therapeutic Interventions Therapeutic Interventions Gait Training,Home Exercise Program,Manual Therapy, Neuromuscular Re-education, Self-Care/Home Management, Therapeutic Activities, Therapeutic Exercises Next Visit Focus/Plan Next Note Type Treatment Note Next Visit Plan Sit to stand progression, ankle/toe strengthening, gait training progressing to without AD, balance progression, consider dual task/increasing distractions as able
--- NOTE | 2022-07-18 16:15 | PT.OTN ---
Current Diagnoses Other abnormalities of gait and mobility (07/18/22) Unspecified intracranial injury with loss of consciousness status unknown, initial encounter (07/18/22) Physical Therapy Treatment Note PT-OP-A Visit Information Start: 06/14/22 15:34 Freq: Status: Active Protocol: Document 07/18/22 13:04 AMB (Rec: 07/18/22 14:32 AMB [id number]) Out-Patient Physical Therapy Visit Information Visit Information Visit Type Treatment Note Visit Start Time 13:00 Visit Stop Time 13:45 Total Visit Minutes 45 Visit Number 7 PT-OP-B Current Condition Start: 06/14/22 15:34 Freq: Status: Active Protocol: Document 06/16/22 14:32 AMB (Rec: 06/16/22 15:55 AMB [id number]) Current Condition History of Current Condition Onset Date 03/12/23 Current Complaints TBI s/p R craniotomy History of Current Condition [facility] TBI has been home since end of May. R femoral artery blood clot while hospitalized. 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 Bilateral foot pressure. Goes to [employer], goes out to eat with family, otherwise mostly at home. Was given L AFO but doesn't really use it because it is uncomfortable, currently using 4WW also has standard walker. 5 steps to enter with one railing at home. 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 Enjoyed movies/videogames. Personal Factors Other Personal Factors That May Effect Baseline social anxiety Therapy/Recovery PT-OP-C Subjective Start: 06/14/22 15:34 Freq: Status: Active Protocol: Document 07/18/22 13:04 AMB (Rec: 07/18/22 14:32 AMB [id number]) OP-PT Subjective Patient Comments Patient Comments Pt PT-OP-E Functional Tests Start: 06/14/22 15:34 Freq: Status: Active Protocol: Document 06/16/22 14:30 AMB (Rec: 06/16/22 16:01 AMB [id number]) Functional Tests Dynamic Gait Index (DGI) Score 15 DGI Impairment Rating 20 to <40% Impaired (Score 15- 19) PT-OP-G Mobility & Gait Start: 06/14/22 15:34 Freq: Status: Active Protocol: Document 06/16/22 14:30 AMB (Rec: 06/18/22 19:07 AMB [id number]-) OP Gait Assessment Comments Gait Comments Pt ambulating with 4WW, without off the shelf L AFO as pt finds in uncomfortable. Does have poor heel strike and toe off moreso on the left but impaired bilaterally. Gait safety fatigues with dual tasking and pathfinding. Stair Climbing Evaluation Comments Stair Climbing Comments Ambulates with step to patterning with CGA and 1 railing-pt using sidestepping at home currently because it is more difficult to ethnology teacher his railing. PT-OP-H Neuro Start: 06/14/22 15:34 Freq: Status: Active Protocol: Document 06/16/22 14:30 AMB (Rec: 06/18/22 19:07 AMB [id number]-) Sensation Evaluation Comments Summary Comments 100% proprioception at ankles bilateral, lacking light touch along medial aspect of left foot, good deep pressure Muscle Tone Tone Assessment Left Lower Extremity Flexor Tone Description Mild Hypertonicity Muscle Tone Comments L foot can go into supinated and inverted positioning, no clonus palpated by tight achilles/calves L>R PT-OP-M Strength Start: 06/14/22 15:34 Freq: Status: Active Protocol: Document 06/16/22 14:30 AMB (Rec: 06/18/22 19:07 AMB [id number]-) Hip Strength Hip Manual Muscle Testing Right Flexion (L2) 4+ Good+ Extension (S1) 4+ Good+ Abduction 4+ Good+ Left Flexion (L2) 4 Good Extension (S1) 4 Good Abduction 4 Good Knee Strength Knee Manual Muscle Testing Right Flexion (S2) 5 Normal Extension (L3) 5 Normal Left Flexion (S2) 4+ Good+ Extension (L3) 4+ Good+ Ankle/Foot Strength Ankle and Foot Manual Muscle Testing Right Dorsiflexion (L4) 4 Good Plantarflexion (S1) 4 Good Left Dorsiflexion (L4) 3- Fair- Plantarflexion (S1) 3- Fair- Toe Strength Toe Manual Muscle Testing Right Great Toe Flexion 5 Normal Extension 3 Fair Left Great Toe Flexion 4 Good Extension 1 Trace PT-OP-Q Treatments Start: 06/14/22 15:34 Freq: Status: Active Protocol: Document 07/18/22 15:12 AMB (Rec: 07/18/22 15:26 AMB [id number]) Therapeutic Exercises Standing Exercises lift training Standing Exercise Name 10# crate Reps/Minutes 5 Comments good mechanics with squat down , but cues to avoid lumbar flex when put down mini lunges Reps/Minutes 10 Comments with UE support squats Reps/Minutes 10 Comments mini squat Therapeutic Activity Therapeutic Activity floor transfer training Name CGA Reps/Minutes gait belt x 2 Gait Training Gait Activity without AD Comments Ambulating with CG to SBA cues for increased step length, increasing speed, armswing. 100 x 2. Added dual tasking today- remembering food items, able to remember 3 before having some difficulty, but gait did not become less stable with dual task stairs Device Used railing, gait belt Comments 6 step over step gait patterning while ascending with 1 rail, step to when descending PT-OP-T Assessment and Plan Start: 06/14/22 15:34 Freq: Status: Active Protocol: Document 07/18/22 13:04 AMB (Rec: 07/18/22 14:32 AMB [id number]) Physical Therapy Assessment Goals Sit to stand Short Term Goal (STG) Sandeep will move from sit to stand from a low seat (toilet) without using upper body support. STG Duration MET HEP Short Term Goal (STG) Sandeep will be independent and consitent with a HEP to improve his strength balance and gait. STG Duration 6 weeks Balance Short Term Goal (STG) Sandeep will improve his DGI score to at least 20/24 to show improved dynamic balance and lower fall risk. STG Duration 6 weeks Plastering Supervisor Goal (LTG) Sandeep will be able to ambulate without AD over uneven terrain including curbs, grass and gravel without loss of balance while maintaining conversation to show improved dual task and balance ability. LTG Duration 12 weeks Gait Short Term Goal (STG) Sandeep will ambulate over smooth terrain without an assistive device with SBA without LOB for 6 minutes. STG Duration 6 weeks Plastering Supervisor Goal (LTG) Sandeep will ascend and descend a flight of stairs with SBA and alternating steps with 1 railing. LTG Duration 12 weeks Assessment Summary Assessment Sandeep continues to feel his legs are off balance, encouraged in strengthening to try to give him more of a feeling of stability. Encouraged pt in consistency in HEP trying to be more independent at home. Pt continues to ambulate slowly due to feeling off balance, but encouraged family this should improve with improved strengthening. Physical Therapy Plan Frequency and Duration Frequency of Treatment 2x/Week Duration of treatment (weeks) 12 Plan of Care Start Date 06/16/22 Plan of Care End Date 09/08/22 Therapeutic Interventions Therapeutic Interventions Gait Training,Home Exercise Program,Manual Therapy, Neuromuscular Re-education, Self-Care/Home Management, Therapeutic Activities, Therapeutic Exercises Next Visit Focus/Plan Next Note Type Treatment Note Next Visit Plan Sit to stand progression, ankle/toe strengthening, gait training progressing to without AD, balance progression, consider dual task/increasing distractions as able
--- NOTE | 2022-07-28 21:07 | PT.OTN ---
Current Diagnoses Other abnormalities of gait and mobility (07/28/22) Unspecified intracranial injury with loss of consciousness status unknown, initial encounter (07/28/22) Physical Therapy Treatment Note PT-OP-A Visit Information Start: 06/14/22 15:34 Freq: Status: Active Protocol: Document 07/28/22 11:24 AMB (Rec: 07/28/22 12:08 AMB [id number]) Out-Patient Physical Therapy Visit Information Visit Information Visit Type Treatment Note Visit Start Time 11:20 Visit Stop Time 12:00 Total Visit Minutes 40 Visit Number 8 PT-OP-B Current Condition Start: 06/14/22 15:34 Freq: Status: Active Protocol: Document 06/16/22 14:32 AMB (Rec: 06/16/22 15:55 AMB [id number]) Current Condition History of Current Condition Onset Date 03/12/23 Current Complaints TBI s/p R craniotomy History of Current Condition [place] has been home since end of May. R femoral artery blood clot while hospitalized. 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 Bilateral foot pressure. Goes to [employer], goes out to eat with family, otherwise mostly at home. Was given L AFO but doesn't really use it because it is uncomfortable, currently using 4WW also has standard walker. 5 steps to enter with one railing at home. 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 Enjoyed movies/videogames. Personal Factors Other Personal Factors That May Effect Baseline social anxiety Therapy/Recovery PT-OP-C Subjective Start: 06/14/22 15:34 Freq: Status: Active Protocol: Document 07/28/22 11:24 AMB (Rec: 07/28/22 12:08 AMB [id number]) OP-PT Subjective Patient Comments Patient Comments Pt attends with dad and dad states they have been walking around [place], probably about 100' without 4WW. PT-OP-E Functional Tests Start: 06/14/22 15:34 Freq: Status: Active Protocol: Document 06/16/22 14:30 AMB (Rec: 06/16/22 16:01 AMB [id number]) Functional Tests Dynamic Gait Index (DGI) Score 15 DGI Impairment Rating 20 to <40% Impaired (Score 15- 19) PT-OP-G Mobility & Gait Start: 06/14/22 15:34 Freq: Status: Active Protocol: Document 06/16/22 14:30 AMB (Rec: 06/18/22 19:07 AMB [id number]) OP Gait Assessment Comments Gait Comments Pt ambulating with 4WW, without off the shelf L AFO as pt finds in uncomfortable. Does have poor heel strike and toe off moreso on the left but impaired bilaterally. Gait safety fatigues with dual tasking and pathfinding. Stair Climbing Evaluation Comments Stair Climbing Comments Ambulates with step to patterning with CGA and 1 railing-pt using sidestepping at home currently because it is more difficult to polymer chemist his railing. PT-OP-H Neuro Start: 06/14/22 15:34 Freq: Status: Active Protocol: Document 06/16/22 14:30 AMB (Rec: 06/18/22 19:07 AMB [id number]) Sensation Evaluation Comments Summary Comments 100% proprioception at ankles bilateral, lacking light touch along medial aspect of left foot, good deep pressure Muscle Tone Tone Assessment Left Lower Extremity Flexor Tone Description Mild Hypertonicity Muscle Tone Comments L foot can go into supinated and inverted positioning, no clonus palpated by tight achilles/calves L>R PT-OP-M Strength Start: 06/14/22 15:34 Freq: Status: Active Protocol: Document 06/16/22 14:30 AMB (Rec: 06/18/22 19:07 AMB [id number]-) Hip Strength Hip Manual Muscle Testing Right Flexion (L2) 4+ Good+ Extension (S1) 4+ Good+ Abduction 4+ Good+ Left Flexion (L2) 4 Good Extension (S1) 4 Good Abduction 4 Good Knee Strength Knee Manual Muscle Testing Right Flexion (S2) 5 Normal Extension (L3) 5 Normal Left Flexion (S2) 4+ Good+ Extension (L3) 4+ Good+ Ankle/Foot Strength Ankle and Foot Manual Muscle Testing Right Dorsiflexion (L4) 4 Good Plantarflexion (S1) 4 Good Left Dorsiflexion (L4) 3- Fair- Plantarflexion (S1) 3- Fair- Toe Strength Toe Manual Muscle Testing Right Great Toe Flexion 5 Normal Extension 3 Fair Left Great Toe Flexion 4 Good Extension 1 Trace PT-OP-Q Treatments Start: 06/14/22 15:34 Freq: Status: Active Protocol: Document 07/28/22 11:15 AMB (Rec: 07/29/22 21:07 AMB [id number]) Gait Training Gait Activity without AD Comments Ambulating with SBA cues for increased step length, increasing speed, armswing. 400+feet, pt fatigues at end Neuro Re-Education Treatment Balance Activities rock and reach Comments in stride stance weight shift with arm swing- challenging to get ankle dorsiflexion 2 Details corner balance Comments NBOS EO; NBOS EC; NBOS EO HT-- intermittent touching down, increased ankle sway hurdles Details next to rail Comments Light touch and without holding on. SBA Pt using left leg to lead Other Activities ladder drills Comments with UE support( wall rail)/ CG to SBA Braid walking side stepping into squares step into one square at a time alternating steps into squares with pattern changes to improve neuromusclular response PT-OP-T Assessment and Plan Start: 06/14/22 15:34 Freq: Status: Active Protocol: Document 07/28/22 11:15 AMB (Rec: 07/29/22 21:07 AMB [id number]) Physical Therapy Assessment Goals Sit to stand Short Term Goal (STG) Sandeep will move from sit to stand from a low seat (toilet) without using upper body support. STG Duration MET HEP Short Term Goal (STG) Sandeep will be independent and consitent with a HEP to improve his strength balance and gait. STG Duration 6 weeks Balance Short Term Goal (STG) Sandeep will improve his DGI score to at least 20/24 to show improved dynamic balance and lower fall risk. STG Duration 6 weeks Roll Cutter Goal (LTG) Sandeep will be able to ambulate without AD over uneven terrain including curbs, grass and gravel without loss of balance while maintaining conversation to show improved dual task and balance ability. LTG Duration 12 weeks Gait Short Term Goal (STG) Sandeep will ambulate over smooth terrain without an assistive device with SBA without LOB for 6 minutes. STG Duration 6 weeks Roll Cutter Goal (LTG) Sandeep will ascend and descend a flight of stairs with SBA and alternating steps with 1 railing. LTG Duration 12 weeks Assessment Summary Assessment Sandeep ambulated without 4WW for 6MWT but continues to have a slow pace. Encouraged in increasing both pacing and distance at home, as his walks have been less than 200'. Physical Therapy Plan Frequency and Duration Frequency of Treatment 2x/Week Duration of treatment (weeks) 12 Plan of Care Start Date 06/16/22 Plan of Care End Date 09/08/22 Therapeutic Interventions Therapeutic Interventions Gait Training,Home Exercise Program,Manual Therapy, Neuromuscular Re-education, Self-Care/Home Management, Therapeutic Activities, Therapeutic Exercises Next Visit Focus/Plan Next Note Type Treatment Note Next Visit Plan Sit to stand progression, ankle/toe strengthening, gait training progressing to without AD, balance progression, consider dual task/increasing distractions as able
--- NOTE | 2022-08-02 13:26 | PT.OTN ---
Current Diagnoses Other abnormalities of gait and mobility (08/01/22) Unspecified intracranial injury with loss of consciousness status unknown, initial encounter (08/01/22) Physical Therapy Treatment Note PT-OP-A Visit Information Start: 06/14/22 15:34 Freq: Status: Active Protocol: Document 08/01/22 10:57 AMB (Rec: 08/01/22 11:35 AMB [id number]) Out-Patient Physical Therapy Visit Information Visit Information Visit Type Treatment Note Visit Start Time 10:50 Visit Stop Time 11:30 Total Visit Minutes 40 Visit Number 9 PT-OP-B Current Condition Start: 06/14/22 15:34 Freq: Status: Active Protocol: Document 06/16/22 14:32 AMB (Rec: 06/16/22 15:55 AMB [id number]) Current Condition History of Current Condition Onset Date 03/12/23 Current Complaints TBI s/p R craniotomy History of Current Condition [facility] TBI has been home since end of May. R femoral artery blood clot while hospitalized. 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 Bilateral foot pressure. Goes to [employer], goes out to eat with family, otherwise mostly at home. Was given L AFO but doesn't really use it because it is uncomfortable, currently using 4WW also has standard walker. 5 steps to enter with one railing at home. 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 Enjoyed movies/videogames. Personal Factors Other Personal Factors That May Effect Baseline social anxiety Therapy/Recovery PT-OP-C Subjective Start: 06/14/22 15:34 Freq: Status: Active Protocol: Document 08/01/22 10:57 AMB (Rec: 08/01/22 11:35 AMB [id number]) OP-PT Subjective Patient Comments Patient Comments Pt's dad states they have doubled walking distance outside, mostly not using 4WW, but still does use it in the evenings. PT-OP-E Functional Tests Start: 06/14/22 15:34 Freq: Status: Active Protocol: Document 06/16/22 14:30 AMB (Rec: 06/16/22 16:01 AMB [id number]) Functional Tests Dynamic Gait Index (DGI) Score 15 DGI Impairment Rating 20 to <40% Impaired (Score 15- 19) PT-OP-G Mobility & Gait Start: 06/14/22 15:34 Freq: Status: Active Protocol: Document 06/16/22 14:30 AMB (Rec: 06/18/22 19:07 AMB [id number]-) OP Gait Assessment Comments Gait Comments Pt ambulating with 4WW, without off the shelf L AFO as pt finds in uncomfortable. Does have poor heel strike and toe off moreso on the left but impaired bilaterally. Gait safety fatigues with dual tasking and pathfinding. Stair Climbing Evaluation Comments Stair Climbing Comments Ambulates with step to patterning with CGA and 1 railing-pt using sidestepping at home currently because it is more difficult to it manager his railing. PT-OP-H Neuro Start: 06/14/22 15:34 Freq: Status: Active Protocol: Document 06/16/22 14:30 AMB (Rec: 06/18/22 19:07 AMB [id number]-) Sensation Evaluation Comments Summary Comments 100% proprioception at ankles bilateral, lacking light touch along medial aspect of left foot, good deep pressure Muscle Tone Tone Assessment Left Lower Extremity Flexor Tone Description Mild Hypertonicity Muscle Tone Comments L foot can go into supinated and inverted positioning, no clonus palpated by tight achilles/calves L>R PT-OP-M Strength Start: 06/14/22 15:34 Freq: Status: Active Protocol: Document 06/16/22 14:30 AMB (Rec: 06/18/22 19:07 AMB [id number]-) Hip Strength Hip Manual Muscle Testing Right Flexion (L2) 4+ Good+ Extension (S1) 4+ Good+ Abduction 4+ Good+ Left Flexion (L2) 4 Good Extension (S1) 4 Good Abduction 4 Good Knee Strength Knee Manual Muscle Testing Right Flexion (S2) 5 Normal Extension (L3) 5 Normal Left Flexion (S2) 4+ Good+ Extension (L3) 4+ Good+ Ankle/Foot Strength Ankle and Foot Manual Muscle Testing Right Dorsiflexion (L4) 4 Good Plantarflexion (S1) 4 Good Left Dorsiflexion (L4) 3- Fair- Plantarflexion (S1) 3- Fair- Toe Strength Toe Manual Muscle Testing Right Great Toe Flexion 5 Normal Extension 3 Fair Left Great Toe Flexion 4 Good Extension 1 Trace PT-OP-Q Treatments Start: 06/14/22 15:34 Freq: Status: Active Protocol: Document 08/01/22 10:45 AMB (Rec: 08/02/22 13:15 AMB [id number]) Cardio Equipment Recumbent Elliptical (Biodex) Duration (Minutes) 10 Resistance 4 Gym Equipment Cable Column (Body Solid) Leg Extension Resistance 40 Reps/Time 2x10 Gait Training Gait Activity without AD Comments Ambulating with SBA cues for increased step length, increasing speed, armswing. 200' pt fatigues at end stairs Device Used railing, gait belt Comments 6 step over step gait patterning while ascending with 1 rail, and encouraged with descending as well while in PT Neuro Re-Education Treatment Balance Activities rock and reach Comments in stride stance weight shift with arm swing- challenging to get ankle dorsiflexion hurdles Details no UE support Comments Pt using left leg to lead Other Activities ladder drills Comments without UE Support side stepping into squares step into one square at a time alter nating steps into squares marching with pattern changes to improve neuromusclular response PT-OP-T Assessment and Plan Start: 06/14/22 15:34 Freq: Status: Active Protocol: Document 08/01/22 10:57 AMB (Rec: 08/01/22 11:35 AMB [id number]) Physical Therapy Assessment Goals Sit to stand Short Term Goal (STG) Sandeep will move from sit to stand from a low seat (toilet) without using upper body support. STG Duration MET HEP Short Term Goal (STG) Sandeep will be independent and consitent with a HEP to improve his strength balance and gait. STG Duration 6 weeks Balance Short Term Goal (STG) Sandeep will improve his DGI score to at least 20/24 to show improved dynamic balance and lower fall risk. STG Duration 6 weeks Internal Medicine Nurse Practitioner Goal (LTG) Sandeep will be able to ambulate without AD over uneven terrain including curbs, grass and gravel without loss of balance while maintaining conversation to show improved dual task and balance ability. LTG Duration 12 weeks Gait Short Term Goal (STG) Sandeep will ambulate over smooth terrain without an assistive device with SBA without LOB for 6 minutes. STG Duration 6 weeks Internal Medicine Nurse Practitioner Goal (LTG) Sandeep will ascend and descend a flight of stairs with SBA and alternating steps with 1 railing. LTG Duration 12 weeks Assessment Summary Assessment Sandeep's dad was wondering about a gym membership. Sandeep was able to use the weights appropriately, but did need assist with setup. Encouraged if they do consider the gym to keep weights light and get assistance with setting up machines first. Pt is doing better with balance without 4WW but continues to feel off balance when being pushed to do more alternating foot placements. Physical Therapy Plan Frequency and Duration Frequency of Treatment 2x/Week Duration of treatment (weeks) 12 Plan of Care Start Date 06/16/22 Plan of Care End Date 09/08/22 Therapeutic Interventions Therapeutic Interventions Gait Training,Home Exercise Program,Manual Therapy, Neuromuscular Re-education, Self-Care/Home Management, Therapeutic Activities, Therapeutic Exercises Next Visit Focus/Plan Next Note Type Treatment Note Next Visit Plan Sit to stand progression, ankle/toe strengthening, gait training progressing to without AD, balance progression, consider dual task/increasing distractions as able
--- NOTE | 2022-08-08 16:01 | PT.OTN ---
Current Diagnoses Other abnormalities of gait and mobility (08/08/22) Unspecified intracranial injury with loss of consciousness status unknown, initial encounter (08/08/22) Physical Therapy Treatment Note PT-OP-A Visit Information Start: 06/14/22 15:34 Freq: Status: Active Protocol: Document 08/08/22 10:04 AMB (Rec: 08/08/22 10:48 AMB [id number]) Out-Patient Physical Therapy Visit Information Visit Information Visit Type Treatment Note Visit Start Time 10:00 Visit Stop Time 10:45 Total Visit Minutes 45 Visit Number 10 PT-OP-B Current Condition Start: 06/14/22 15:34 Freq: Status: Active Protocol: Document 06/16/22 14:32 AMB (Rec: 06/16/22 15:55 AMB [id number]) Current Condition History of Current Condition Onset Date 03/12/23 Current Complaints TBI s/p R craniotomy History of Current Condition [place] TBI has been home since end of May. R femoral artery blood clot while hospitalized. 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 Bilateral foot pressure. Goes to [employer], goes out to eat with family, otherwise mostly at home. Was given L AFO but doesn't really use it because it is uncomfortable, currently using 4WW also has standard walker. 5 steps to enter with one railing at home. 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 Enjoyed movies/videogames. Personal Factors Other Personal Factors That May Effect Baseline social anxiety Therapy/Recovery PT-OP-C Subjective Start: 06/14/22 15:34 Freq: Status: Active Protocol: Document 08/08/22 10:04 AMB (Rec: 08/08/22 10:48 AMB [id number]) OP-PT Subjective Patient Comments Patient Comments Pt and dad report he has been walking around without the walker about 70% of the time. PT-OP-E Functional Tests Start: 06/14/22 15:34 Freq: Status: Active Protocol: Document 06/16/22 14:30 AMB (Rec: 06/16/22 16:01 AMB [id number]) Functional Tests Dynamic Gait Index (DGI) Score 15 DGI Impairment Rating 20 to <40% Impaired (Score 15- 19) PT-OP-G Mobility & Gait Start: 06/14/22 15:34 Freq: Status: Active Protocol: Document 06/16/22 14:30 AMB (Rec: 06/18/22 19:07 AMB [id number]) OP Gait Assessment Comments Gait Comments Pt ambulating with 4WW, without off the shelf L AFO as pt finds in uncomfortable. Does have poor heel strike and toe off moreso on the left but impaired bilaterally. Gait safety fatigues with dual tasking and pathfinding. Stair Climbing Evaluation Comments Stair Climbing Comments Ambulates with step to patterning with CGA and 1 railing-pt using sidestepping at home currently because it is more difficult to corporate quality manager his railing. PT-OP-H Neuro Start: 06/14/22 15:34 Freq: Status: Active Protocol: Document 06/16/22 14:30 AMB (Rec: 06/18/22 19:07 AMB [id number]) Sensation Evaluation Comments Summary Comments 100% proprioception at ankles bilateral, lacking light touch along medial aspect of left foot, good deep pressure Muscle Tone Tone Assessment Left Lower Extremity Flexor Tone Description Mild Hypertonicity Muscle Tone Comments L foot can go into supinated and inverted positioning, no clonus palpated by tight achilles/calves L>R PT-OP-M Strength Start: 06/14/22 15:34 Freq: Status: Active Protocol: Document 06/16/22 14:30 AMB (Rec: 06/18/22 19:07 AMB [id number]) Hip Strength Hip Manual Muscle Testing Right Flexion (L2) 4+ Good+ Extension (S1) 4+ Good+ Abduction 4+ Good+ Left Flexion (L2) 4 Good Extension (S1) 4 Good Abduction 4 Good Knee Strength Knee Manual Muscle Testing Right Flexion (S2) 5 Normal Extension (L3) 5 Normal Left Flexion (S2) 4+ Good+ Extension (L3) 4+ Good+ Ankle/Foot Strength Ankle and Foot Manual Muscle Testing Right Dorsiflexion (L4) 4 Good Plantarflexion (S1) 4 Good Left Dorsiflexion (L4) 3- Fair- Plantarflexion (S1) 3- Fair- Toe Strength Toe Manual Muscle Testing Right Great Toe Flexion 5 Normal Extension 3 Fair Left Great Toe Flexion 4 Good Extension 1 Trace PT-OP-Q Treatments Start: 06/14/22 15:34 Freq: Status: Active Protocol: Document 08/08/22 10:00 AMB (Rec: 08/08/22 16:00 AMB [id number]) Therapeutic Exercises Sitting Exercises therapy ball Sitting Exercise Name 65cm Comments marching, marching with alternating arm lift Other Exercises prone on ball Other Exercise Name with arm lift- pt felt off balance, needed CGA Therapeutic Activity Therapeutic Activity lifting Comments 15# from floor to chest height and carry x 10 Gait Training Gait Activity without AD Comments Ambulating with SBA cues for increased step length, increasing speed, armswing. 400' pt fatigues at end stairs Device Used railing, gait belt Comments 2 full flights of stairs, step over step, slow PT-OP-T Assessment and Plan Start: 06/14/22 15:34 Freq: Status: Active Protocol: Document 08/08/22 10:04 AMB (Rec: 08/08/22 10:48 AMB [id number]) Physical Therapy Assessment Goals Sit to stand Short Term Goal (STG) Sandeep will move from sit to stand from a low seat (toilet) without using upper body support. STG Duration MET HEP Short Term Goal (STG) Sandeep will be independent and consitent with a HEP to improve his strength balance and gait. STG Duration 6 weeks Balance Short Term Goal (STG) Sandeep will improve his DGI score to at least 20/24 to show improved dynamic balance and lower fall risk. STG Duration 6 weeks Mcc Goal (LTG) Sandeep will be able to ambulate without AD over uneven terrain including curbs, grass and gravel without loss of balance while maintaining conversation to show improved dual task and balance ability. LTG Duration 12 weeks Gait Short Term Goal (STG) Sandeep will ambulate over smooth terrain without an assistive device with SBA without LOB for 6 minutes. STG Duration 6 weeks Steamtable Attendant Railroad Goal (LTG) Sandeep will ascend and descend a flight of stairs with SBA and alternating steps with 1 railing. LTG Duration 12 weeks Assessment Summary Assessment Sandeep did well with therapy ball exercises, although did feel off balance and less confident with more challenging exercises, given marching while seated for HEP. Physical Therapy Plan Frequency and Duration Frequency of Treatment 2x/Week Duration of treatment (weeks) 12 Plan of Care Start Date 06/16/22 Plan of Care End Date 09/08/22 Therapeutic Interventions Therapeutic Interventions Gait Training,Home Exercise Program,Manual Therapy, Neuromuscular Re-education, Self-Care/Home Management, Therapeutic Activities, Therapeutic Exercises Next Visit Focus/Plan Next Note Type Treatment Note Next Visit Plan Sit to stand progression, ankle/toe strengthening, gait training progressing to without AD, balance progression, consider dual task/increasing distractions as able
--- NOTE | 2022-08-11 22:01 | PT.OTN ---
Current Diagnoses Other abnormalities of gait and mobility (08/11/22) Unspecified intracranial injury with loss of consciousness status unknown, initial encounter (08/11/22) Physical Therapy Treatment Note PT-OP-A Visit Information Start: 06/14/22 15:34 Freq: Status: Active Protocol: Document 08/11/22 14:31 AMB (Rec: 08/11/22 15:56 AMB [id number]) Out-Patient Physical Therapy Visit Information Visit Information Visit Type Treatment Note Visit Start Time 14:30 Visit Stop Time 15:15 Total Visit Minutes 45 Visit Number 11 PT-OP-B Current Condition Start: 06/14/22 15:34 Freq: Status: Active Protocol: Document 06/16/22 14:32 AMB (Rec: 06/16/22 15:55 AMB [id number]) Current Condition History of Current Condition Onset Date 03/12/23 Current Complaints TBI s/p R craniotomy History of Current Condition [facility] TBI has been home since end of May. R femoral artery blood clot while hospitalized. 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 Bilateral foot pressure. Goes to [employer], goes out to eat with family, otherwise mostly at home. Was given L AFO but doesn't really use it because it is uncomfortable, currently using 4WW also has standard walker. 5 steps to enter with one railing at home. 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 Enjoyed movies/videogames. Personal Factors Other Personal Factors That May Effect Baseline social anxiety Therapy/Recovery PT-OP-C Subjective Start: 06/14/22 15:34 Freq: Status: Active Protocol: Document 08/11/22 14:31 AMB (Rec: 08/11/22 15:56 AMB [id number]) OP-PT Subjective Patient Comments Patient Comments Pt states he is ready to be done with PT. Dad still wants him to come so he is agreeable. PT-OP-E Functional Tests Start: 06/14/22 15:34 Freq: Status: Active Protocol: Document 06/16/22 14:30 AMB (Rec: 06/16/22 16:01 AMB [id number]) Functional Tests Dynamic Gait Index (DGI) Score 15 DGI Impairment Rating 20 to <40% Impaired (Score 15- 19) PT-OP-G Mobility & Gait Start: 06/14/22 15:34 Freq: Status: Active Protocol: Document 06/16/22 14:30 AMB (Rec: 06/18/22 19:07 AMB [id number]-) OP Gait Assessment Comments Gait Comments Pt ambulating with 4WW, without off the shelf L AFO as pt finds in uncomfortable. Does have poor heel strike and toe off moreso on the left but impaired bilaterally. Gait safety fatigues with dual tasking and pathfinding. Stair Climbing Evaluation Comments Stair Climbing Comments Ambulates with step to patterning with CGA and 1 railing-pt using sidestepping at home currently because it is more difficult to cut press operator his railing. PT-OP-H Neuro Start: 06/14/22 15:34 Freq: Status: Active Protocol: Document 06/16/22 14:30 AMB (Rec: 06/18/22 19:07 AMB [id number]) Sensation Evaluation Comments Summary Comments 100% proprioception at ankles bilateral, lacking light touch along medial aspect of left foot, good deep pressure Muscle Tone Tone Assessment Left Lower Extremity Flexor Tone Description Mild Hypertonicity Muscle Tone Comments L foot can go into supinated and inverted positioning, no clonus palpated by tight achilles/calves L>R PT-OP-M Strength Start: 06/14/22 15:34 Freq: Status: Active Protocol: Document 06/16/22 14:30 AMB (Rec: 06/18/22 19:07 AMB [id number]-) Hip Strength Hip Manual Muscle Testing Right Flexion (L2) 4+ Good+ Extension (S1) 4+ Good+ Abduction 4+ Good+ Left Flexion (L2) 4 Good Extension (S1) 4 Good Abduction 4 Good Knee Strength Knee Manual Muscle Testing Right Flexion (S2) 5 Normal Extension (L3) 5 Normal Left Flexion (S2) 4+ Good+ Extension (L3) 4+ Good+ Ankle/Foot Strength Ankle and Foot Manual Muscle Testing Right Dorsiflexion (L4) 4 Good Plantarflexion (S1) 4 Good Left Dorsiflexion (L4) 3- Fair- Plantarflexion (S1) 3- Fair- Toe Strength Toe Manual Muscle Testing Right Great Toe Flexion 5 Normal Extension 3 Fair Left Great Toe Flexion 4 Good Extension 1 Trace PT-OP-Q Treatments Start: 06/14/22 15:34 Freq: Status: Active Protocol: Document 08/11/22 21:51 AMB (Rec: 08/12/22 21:59 AMB [id number]) Cardio Equipment Treadmill Duration (Minutes) 5 Speed 2 Incline 0 Therapeutic Activity Therapeutic Activity lifting Comments 15# from floor to chest height and carry x 10 Gait Training Gait Activity without AD Description Outdoor ambulation Distance/Duration ~200' Comments over dirt path, gravel, small decline, SBA slow gait stairs Device Used railing, gait belt Comments 2 steps without railing step to gait 7 steps step over step with 1 railing Neuro Re-Education Treatment Other Activities Cones Comments scanning environment for 10 cones of specific colors. Pt given 1 and 2 part instructions, but did struggle more with 2 part. PT-OP-T Assessment and Plan Start: 06/14/22 15:34 Freq: Status: Active Protocol: Document 08/11/22 14:31 AMB (Rec: 08/11/22 15:56 AMB [id number]) Physical Therapy Assessment Goals Sit to stand Short Term Goal (STG) Sandeep will move from sit to stand from a low seat (toilet) without using upper body support. STG Duration MET HEP Short Term Goal (STG) Sandeep will be independent and consitent with a HEP to improve his strength balance and gait. STG Duration 6 weeks Balance Short Term Goal (STG) Sandeep will improve his DGI score to at least 20/24 to show improved dynamic balance and lower fall risk. STG Duration 6 weeks Prison Goal (LTG) Sandeep will be able to ambulate without AD over uneven terrain including curbs, grass and gravel without loss of balance while maintaining conversation to show improved dual task and balance ability. LTG Duration 12 weeks Gait Short Term Goal (STG) Sandeep will ambulate over smooth terrain without an assistive device with SBA without LOB for 6 minutes. STG Duration 6 weeks Spout Tender Goal (LTG) Sandeep will ascend and descend a flight of stairs with SBA and alternating steps with 1 railing. LTG Duration 12 weeks Assessment Summary Assessment Discussed goals of increasing gait speed and ability to pathfind, lift carry, floor transfers without environmental support to support pt's goals of returning to work. Was able to get up to 2.0mph on treadmill but using UEs heavily. Physical Therapy Plan Frequency and Duration Frequency of Treatment 2x/Week Duration of treatment (weeks) 12 Plan of Care Start Date 06/16/22 Plan of Care End Date 09/08/22 Therapeutic Interventions Therapeutic Interventions Gait Training,Home Exercise Program,Manual Therapy, Neuromuscular Re-education, Self-Care/Home Management, Therapeutic Activities, Therapeutic Exercises Next Visit Focus/Plan Next Note Type Treatment Note Next Visit Plan Discuss ellpitical vs recumbent bike Sit to stand progression, ankle/toe strengthening, gait training progressing to without AD, balance progression, consider dual task/increasing distractions as able
--- NOTE | 2022-08-21 16:29 | PT.OTN ---
Current Diagnoses Other abnormalities of gait and mobility (08/21/22) Unspecified intracranial injury with loss of consciousness status unknown, initial encounter (08/21/22) Physical Therapy Treatment Note PT-OP-A Visit Information Start: 06/14/22 15:34 Freq: Status: Active Protocol: Document 08/21/22 12:00 AMB (Rec: 08/21/22 12:51 AMB [id number]) Out-Patient Physical Therapy Visit Information Visit Information Visit Type Treatment Note Visit Start Time 12:00 Visit Stop Time 12:45 Total Visit Minutes 45 Visit Number 12 PT-OP-B Current Condition Start: 06/14/22 15:34 Freq: Status: Active Protocol: Document 06/16/22 14:32 AMB (Rec: 06/16/22 15:55 AMB [id number]) Current Condition History of Current Condition Onset Date 03/12/23 Current Complaints TBI s/p R craniotomy History of Current Condition [place] has been home since end of May. R femoral artery blood clot while hospitalized. 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 Bilateral foot pressure. Goes to [employer], goes out to eat with family, otherwise mostly at home. Was given L AFO but doesn't really use it because it is uncomfortable, currently using 4WW also has standard walker. 5 steps to enter with one railing at home. 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 Enjoyed movies/videogames. Personal Factors Other Personal Factors That May Effect Baseline social anxiety Therapy/Recovery PT-OP-C Subjective Start: 06/14/22 15:34 Freq: Status: Active Protocol: Document 08/21/22 16:20 AMB (Rec: 08/21/22 16:28 AMB [id number]) OP-PT Subjective Patient Comments Patient Comments Sandeep has been walking around [employer] more, but does tend to follow his parents around rather than pathfinding on his own. PT-OP-E Functional Tests Start: 06/14/22 15:34 Freq: Status: Active Protocol: Document 06/16/22 14:30 AMB (Rec: 06/16/22 16:01 AMB [id number]) Functional Tests Dynamic Gait Index (DGI) Score 15 DGI Impairment Rating 20 to <40% Impaired (Score 15- 19) PT-OP-G Mobility & Gait Start: 06/14/22 15:34 Freq: Status: Active Protocol: Document 06/16/22 14:30 AMB (Rec: 06/18/22 19:07 AMB [id number]) OP Gait Assessment Comments Gait Comments Pt ambulating with 4WW, without off the shelf L AFO as pt finds in uncomfortable. Does have poor heel strike and toe off moreso on the left but impaired bilaterally. Gait safety fatigues with dual tasking and pathfinding. Stair Climbing Evaluation Comments Stair Climbing Comments Ambulates with step to patterning with CGA and 1 railing-pt using sidestepping at home currently because it is more difficult to cover creaser his railing. PT-OP-H Neuro Start: 06/14/22 15:34 Freq: Status: Active Protocol: Document 06/16/22 14:30 AMB (Rec: 06/18/22 19:07 AMB [id number]-) Sensation Evaluation Comments Summary Comments 100% proprioception at ankles bilateral, lacking light touch along medial aspect of left foot, good deep pressure Muscle Tone Tone Assessment Left Lower Extremity Flexor Tone Description Mild Hypertonicity Muscle Tone Comments L foot can go into supinated and inverted positioning, no clonus palpated by tight achilles/calves L>R PT-OP-M Strength Start: 06/14/22 15:34 Freq: Status: Active Protocol: Document 06/16/22 14:30 AMB (Rec: 06/18/22 19:07 AMB [id number]-) Hip Strength Hip Manual Muscle Testing Right Flexion (L2) 4+ Good+ Extension (S1) 4+ Good+ Abduction 4+ Good+ Left Flexion (L2) 4 Good Extension (S1) 4 Good Abduction 4 Good Knee Strength Knee Manual Muscle Testing Right Flexion (S2) 5 Normal Extension (L3) 5 Normal Left Flexion (S2) 4+ Good+ Extension (L3) 4+ Good+ Ankle/Foot Strength Ankle and Foot Manual Muscle Testing Right Dorsiflexion (L4) 4 Good Plantarflexion (S1) 4 Good Left Dorsiflexion (L4) 3- Fair- Plantarflexion (S1) 3- Fair- Toe Strength Toe Manual Muscle Testing Right Great Toe Flexion 5 Normal Extension 3 Fair Left Great Toe Flexion 4 Good Extension 1 Trace PT-OP-Q Treatments Start: 06/14/22 15:34 Freq: Status: Active Protocol: Document 08/21/22 16:20 AMB (Rec: 08/21/22 16:28 AMB [id number]) Cardio Equipment Elliptical Duration (Minutes) 5 Other not fast enough to start machine Therapeutic Exercises Standing Exercises lift training Standing Exercise Name 10# crate Reps/Minutes 5 Comments good mechanics with squat down , but cues to avoid lumbar flex when put down squats Reps/Minutes 10 Comments mini squat Gait Training Gait Activity without AD Description indoor Distance/Duration ~200' Comments encouraged pt/dad to consider more independent pathfinding, pt struggles wiht dual tast Neuro Re-Education Treatment Balance Activities hurdles Details no UE support Comments Pt using left leg to lead PT-OP-T Assessment and Plan Start: 06/14/22 15:34 Freq: Status: Active Protocol: Document 08/21/22 12:00 AMB (Rec: 08/21/22 12:51 AMB [id number]) Physical Therapy Assessment Goals Sit to stand Short Term Goal (STG) Sandeep will move from sit to stand from a low seat (toilet) without using upper body support. STG Duration MET HEP Short Term Goal (STG) Sandeep will be independent and consitent with a HEP to improve his strength balance and gait. STG Duration 6 weeks Balance Short Term Goal (STG) Sandeep will improve his DGI score to at least 20/24 to show improved dynamic balance and lower fall risk. STG Duration 6 weeks Cage Clerk Goal (LTG) Sandeep will be able to ambulate without AD over uneven terrain including curbs, grass and gravel without loss of balance while maintaining conversation to show improved dual task and balance ability. LTG Duration 12 weeks Gait Short Term Goal (STG) Sandeep will ambulate over smooth terrain without an assistive device with SBA without LOB for 6 minutes. STG Duration 6 weeks Fpc Goal (LTG) Sandeep will ascend and descend a flight of stairs with SBA and alternating steps with 1 railing. LTG Duration 12 weeks Assessment Summary Assessment Sandeep attends therapy with continued slow gait speed (17 seconds for TUG), but overall is improving, continues to struggle in complex crowded environments and would struggle wiht complicated path finding. Physical Therapy Plan Frequency and Duration Frequency of Treatment 2x/Week Duration of treatment (weeks) 12 Plan of Care Start Date 06/16/22 Plan of Care End Date 09/08/22 Therapeutic Interventions Therapeutic Interventions Gait Training,Home Exercise Program,Manual Therapy, Neuromuscular Re-education, Self-Care/Home Management, Therapeutic Activities, Therapeutic Exercises
--- NOTE | 2022-08-30 16:09 | PT.OTN ---
Current Diagnoses Other abnormalities of gait and mobility (08/30/22) Unspecified intracranial injury with loss of consciousness status unknown, initial encounter (08/30/22) Physical Therapy Treatment Note PT-OP-A Visit Information Start: 06/14/22 15:34 Freq: Status: Active Protocol: Document 08/30/22 08:17 AMB (Rec: 08/30/22 09:01 AMB [id number]) Out-Patient Physical Therapy Visit Information Visit Information Visit Type Progress Note Visit Start Time 08:15 Visit Stop Time 09:00 Total Visit Minutes 45 Visit Number 13 PT-OP-B Current Condition Start: 06/14/22 15:34 Freq: Status: Active Protocol: Document 06/16/22 14:32 AMB (Rec: 06/16/22 15:55 AMB [id number]) Current Condition History of Current Condition Onset Date 03/12/23 Current Complaints TBI s/p R craniotomy History of Current Condition [facility] TBI has been home since end of May. R femoral artery blood clot while hospitalized. 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 Bilateral foot pressure. Goes to [employer], goes out to eat with family, otherwise mostly at home. Was given L AFO but doesn't really use it because it is uncomfortable, currently using 4WW also has standard walker. 5 steps to enter with one railing at home. 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 Enjoyed movies/videogames. Personal Factors Other Personal Factors That May Effect Baseline social anxiety Therapy/Recovery PT-OP-C Subjective Start: 06/14/22 15:34 Freq: Status: Active Protocol: Document 08/30/22 08:17 AMB (Rec: 08/30/22 09:01 AMB [id number]) OP-PT Subjective Patient Comments Patient Comments Pt's PCP is Dr. Rodriguez in [place]. PT-OP-E Functional Tests Start: 06/14/22 15:34 Freq: Status: Active Protocol: Document 06/16/22 14:30 AMB (Rec: 06/16/22 16:01 AMB [id number]) Functional Tests Dynamic Gait Index (DGI) Score 15 DGI Impairment Rating 20 to <40% Impaired (Score 15- 19) PT-OP-G Mobility & Gait Start: 06/14/22 15:34 Freq: Status: Active Protocol: Document 06/16/22 14:30 AMB (Rec: 06/18/22 19:07 AMB [id number]) OP Gait Assessment Comments Gait Comments Pt ambulating with 4WW, without off the shelf L AFO as pt finds in uncomfortable. Does have poor heel strike and toe off moreso on the left but impaired bilaterally. Gait safety fatigues with dual tasking and pathfinding. Stair Climbing Evaluation Comments Stair Climbing Comments Ambulates with step to patterning with CGA and 1 railing-pt using sidestepping at home currently because it is more difficult to chief operator synthesis his railing. PT-OP-H Neuro Start: 06/14/22 15:34 Freq: Status: Active Protocol: Document 06/16/22 14:30 AMB (Rec: 06/18/22 19:07 AMB [id number]) Sensation Evaluation Comments Summary Comments 100% proprioception at ankles bilateral, lacking light touch along medial aspect of left foot, good deep pressure Muscle Tone Tone Assessment Left Lower Extremity Flexor Tone Description Mild Hypertonicity Muscle Tone Comments L foot can go into supinated and inverted positioning, no clonus palpated by tight achilles/calves L>R PT-OP-M Strength Start: 06/14/22 15:34 Freq: Status: Active Protocol: Document 06/16/22 14:30 AMB (Rec: 06/18/22 19:07 AMB [id number]-) Hip Strength Hip Manual Muscle Testing Right Flexion (L2) 4+ Good+ Extension (S1) 4+ Good+ Abduction 4+ Good+ Left Flexion (L2) 4 Good Extension (S1) 4 Good Abduction 4 Good Knee Strength Knee Manual Muscle Testing Right Flexion (S2) 5 Normal Extension (L3) 5 Normal Left Flexion (S2) 4+ Good+ Extension (L3) 4+ Good+ Ankle/Foot Strength Ankle and Foot Manual Muscle Testing Right Dorsiflexion (L4) 4 Good Plantarflexion (S1) 4 Good Left Dorsiflexion (L4) 3- Fair- Plantarflexion (S1) 3- Fair- Toe Strength Toe Manual Muscle Testing Right Great Toe Flexion 5 Normal Extension 3 Fair Left Great Toe Flexion 4 Good Extension 1 Trace PT-OP-Q Treatments Start: 06/14/22 15:34 Freq: Status: Active Protocol: Document 08/30/22 13:07 AMB (Rec: 08/30/22 13:13 AMB [id number]) Cardio Equipment Treadmill Duration (Minutes) 10 Speed 1.5 Other bilateral UE support Neuro Re-Education Treatment Balance Activities 2 Comments DGI: challenged by stop and turn and steps. Overall slow gait continues hurdles Details no UE support Comments Pt using left leg to lead 1 Details step over 12 height wooden block Comments to recreate stepping over tub PT-OP-T Assessment and Plan Start: 06/14/22 15:34 Freq: Status: Active Protocol: Document 08/30/22 08:17 AMB (Rec: 08/30/22 09:01 AMB [id number]) Physical Therapy Assessment Goals Sit to stand Short Term Goal (STG) Sandeep will move from sit to stand from a low seat (toilet) without using upper body support. STG Duration MET HEP Short Term Goal (STG) Sandeep will be independent and consitent with a HEP to improve his strength balance and gait. STG Duration 6 weeks Balance Short Term Goal (STG) Sandeep will improve his DGI score to at least 20/24 to show improved dynamic balance and lower fall risk. 08/30: at eval; STG Duration MET Senior Care Goal (LTG) Sandeep will be able to ambulate without AD over uneven terrain including curbs, grass and gravel without loss of balance while maintaining conversation to show improved dual task and balance ability. LTG Duration 12 weeks Gait Short Term Goal (STG) Sandeep will ambulate over smooth terrain without an assistive device with SBA without LOB for 6 minutes. STG Duration MET Timber Sizer Goal (LTG) Sandeep will ascend and descend a flight of stairs with SBA and alternating steps with 1 railing. LTG Duration 12 weeks Assessment Summary Assessment Sandeep has met 50% of his PT goals. His biggest struggle at this point is confidence with higher level transfers ( he continues to need UE support with floor transfer and bath transfer) and with his gait speed. His gait speed continues to be significantly lower than age/ gender norms. He is challenged by dual tasking. For example the TUG test has a norm of 8 seconds for 60 year olds, and he takes 17 seconds to complete that task. Sandeep will benefit from continued physical therapy to work on his higher level balance and gait so that he can eventually return to work and gain more independence in his home (his parents continue to offer stand by assistance due to both his and their lack of confidence with his balance). Overall he has improved with PT, is no longer using and assistive device for most activities, but needs to improve to a higher level considering his young age. Physical Therapy Plan Frequency and Duration Frequency of Treatment 2x/Week Duration of treatment (weeks) 10 Plan of Care Start Date 08/30/22 Plan of Care End Date 11/08/22
--- NOTE | 2022-08-30 16:10 | PT.OPPOC ---
Physical, Occupational & Speech Therapy At [facility] Current Diagnoses Other abnormalities of gait and mobility (08/30/22) Unspecified intracranial injury with loss of consciousness status unknown, initial encounter (08/30/22) Visit Care Team Role Provider Type KIMI Robbins Family Provider Non-Staff Primary Care Provider Specialty: Nursing Address: [facility] [address], [address], [place], [address] Email: Attending Provider Referring Provider Specialty: Address: Phone: Fax: Email: Plan Of Care PT-OP-T Assessment and Plan Start: 06/14/22 15:34 Freq: Status: Active Protocol: Document 08/30/22 08:17 AMB (Rec: 08/30/22 09:01 AMB [id number]) Physical Therapy Assessment Goals Sit to stand Short Term Goal (STG) Sandeep will move from sit to stand from a low seat (toilet) without using upper body support. STG Duration MET HEP Short Term Goal (STG) Sandeep will be independent and consitent with a HEP to improve his strength balance and gait. STG Duration 6 weeks Balance Short Term Goal (STG) Sandeep will improve his DGI score to at least 20/24 to show improved dynamic balance and lower fall risk. 08/30: at eval; STG Duration MET Manager Special Events Goal (LTG) Sandeep will be able to ambulate without AD over uneven terrain including curbs, grass and gravel without loss of balance while maintaining conversation to show improved dual task and balance ability. LTG Duration 12 weeks Gait Short Term Goal (STG) Sandeep will ambulate over smooth terrain without an assistive device with SBA without LOB for 6 minutes. STG Duration MET Jail Goal (LTG) Sandeep will ascend and descend a flight of stairs with SBA and alternating steps with 1 railing. LTG Duration 12 weeks Assessment Summary Assessment Sandeep has met 50% of his PT goals. His biggest struggle at this point is confidence with higher level transfers ( he continues to need UE support with floor transfer and bath transfer) and with his gait speed. His gait speed continues to be significantly lower than age/ gender norms. He is challenged by dual tasking. For example the TUG test has a norm of 8 seconds for 60 year olds, and he takes 17 seconds to complete that task. Sandeep will benefit from continued physical therapy to work on his higher level balance and gait so that he can eventually return to work and gain more independence in his home (his parents continue to offer stand by assistance due to both his and their lack of confidence with his balance). Overall he has improved with PT, is no longer using and assistive device for most activities, but needs to improve to a higher level considering his young age. Physical Therapy Plan Frequency and Duration Frequency of Treatment 2x/Week Duration of treatment (weeks) 10 Plan of Care Start Date 08/30/22 Plan of Care End Date 11/08/22 Plan of Care Dates Plan of Care Start Date 08/30/22 Plan of Care End Date 11/08/22 Electronically Signed by: Karina Kasper, PT 08/30/22 [id number] If you are in agreement with this Plan of Care, please return a signed and dated copy. I have reviewed this Plan of Care and certify that the skilled therapy services above are required to meet the patient?s needs. Physician Signature Date Printed Name and Credentials Clinical Instructor Signature Printed Name and Credentials
--- NOTE | 2022-09-01 16:00 | PT.OTN ---
Current Diagnoses Other abnormalities of gait and mobility (09/01/22) Unspecified intracranial injury with loss of consciousness status unknown, initial encounter (09/01/22) Physical Therapy Treatment Note PT-OP-A Visit Information Start: 06/14/22 15:34 Freq: Status: Active Protocol: Document 09/01/22 10:57 AMB (Rec: 09/01/22 11:29 AMB [id number]) Out-Patient Physical Therapy Visit Information Visit Information Visit Type Treatment Note Visit Start Time 10:45 Visit Stop Time 11:30 Total Visit Minutes 45 Visit Number 14 PT-OP-B Current Condition Start: 06/14/22 15:34 Freq: Status: Active Protocol: Document 06/16/22 14:32 AMB (Rec: 06/16/22 15:55 AMB [id number]) Current Condition History of Current Condition Onset Date 03/12/23 Current Complaints TBI s/p R craniotomy History of Current Condition [facility] has been home since end of May. R femoral artery blood clot while hospitalized. 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 Bilateral foot pressure. Goes to [employer], goes out to eat with family, otherwise mostly at home. Was given L AFO but doesn't really use it because it is uncomfortable, currently using 4WW also has standard walker. 5 steps to enter with one railing at home. 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 Enjoyed movies/videogames. Personal Factors Other Personal Factors That May Effect Baseline social anxiety Therapy/Recovery PT-OP-C Subjective Start: 06/14/22 15:34 Freq: Status: Active Protocol: Document 09/01/22 10:57 AMB (Rec: 09/01/22 11:29 AMB [id number]) OP-PT Subjective Patient Comments Patient Reported Progress Same PT-OP-E Functional Tests Start: 06/14/22 15:34 Freq: Status: Active Protocol: Document 06/16/22 14:30 AMB (Rec: 06/16/22 16:01 AMB [id number]) Functional Tests Dynamic Gait Index (DGI) Score 15 DGI Impairment Rating 20 to <40% Impaired (Score 15- 19) PT-OP-G Mobility & Gait Start: 06/14/22 15:34 Freq: Status: Active Protocol: Document 06/16/22 14:30 AMB (Rec: 06/18/22 19:07 AMB [id number]) OP Gait Assessment Comments Gait Comments Pt ambulating with 4WW, without off the shelf L AFO as pt finds in uncomfortable. Does have poor heel strike and toe off moreso on the left but impaired bilaterally. Gait safety fatigues with dual tasking and pathfinding. Stair Climbing Evaluation Comments Stair Climbing Comments Ambulates with step to patterning with CGA and 1 railing-pt using sidestepping at home currently because it is more difficult to interlibrary loan services librarian his railing. PT-OP-H Neuro Start: 06/14/22 15:34 Freq: Status: Active Protocol: Document 06/16/22 14:30 AMB (Rec: 06/18/22 19:07 AMB [id number]) Sensation Evaluation Comments Summary Comments 100% proprioception at ankles bilateral, lacking light touch along medial aspect of left foot, good deep pressure Muscle Tone Tone Assessment Left Lower Extremity Flexor Tone Description Mild Hypertonicity Muscle Tone Comments L foot can go into supinated and inverted positioning, no clonus palpated by tight achilles/calves L>R PT-OP-M Strength Start: 06/14/22 15:34 Freq: Status: Active Protocol: Document 06/16/22 14:30 AMB (Rec: 06/18/22 19:07 AMB [id number]) Hip Strength Hip Manual Muscle Testing Right Flexion (L2) 4+ Good+ Extension (S1) 4+ Good+ Abduction 4+ Good+ Left Flexion (L2) 4 Good Extension (S1) 4 Good Abduction 4 Good Knee Strength Knee Manual Muscle Testing Right Flexion (S2) 5 Normal Extension (L3) 5 Normal Left Flexion (S2) 4+ Good+ Extension (L3) 4+ Good+ Ankle/Foot Strength Ankle and Foot Manual Muscle Testing Right Dorsiflexion (L4) 4 Good Plantarflexion (S1) 4 Good Left Dorsiflexion (L4) 3- Fair- Plantarflexion (S1) 3- Fair- Toe Strength Toe Manual Muscle Testing Right Great Toe Flexion 5 Normal Extension 3 Fair Left Great Toe Flexion 4 Good Extension 1 Trace PT-OP-Q Treatments Start: 06/14/22 15:34 Freq: Status: Active Protocol: Document 09/01/22 10:57 AMB (Rec: 09/01/22 11:29 AMB [id number]) Cardio Equipment Treadmill Duration (Minutes) 10 Speed 2.3 Other bilateral UE support Gym Equipment Shuttle Balance 1 Details RED Comments pt dislikes tried wiht head turns but pt feels need to use UEs at that point Neuro Re-Education Treatment Balance Activities bosu balance Details pt prefers UE support- challenged. 3 step and HT Details CGA Comments cued 3 step then pause, turn head then repeat, no LOB rock and reach Comments in stride stance weight shift with arm swing- challenging to get ankle dorsiflexion hurdles Details no UE support Comments working on alternating legs 1 Details step over 12 height wooden block Comments to recreate stepping over tub - needs UE support Other Activities blue foam Details stride stance Comments EO no UE support good stability Ball toss Comments on even terrain and blue foam CG PT-OP-T Assessment and Plan Start: 06/14/22 15:34 Freq: Status: Active Protocol: Document 09/01/22 10:57 AMB (Rec: 09/01/22 11:29 AMB [id number]) Physical Therapy Assessment Goals Sit to stand Short Term Goal (STG) Sandeep will move from sit to stand from a low seat (toilet) without using upper body support. STG Duration MET HEP Short Term Goal (STG) Sandeep will be independent and consitent with a HEP to improve his strength balance and gait. STG Duration 6 weeks Balance Short Term Goal (STG) Sandeep will improve his DGI score to at least 20/24 to show improved dynamic balance and lower fall risk. 08/30: at [facility]; STG Duration MET Detention Goal (LTG) Sandeep will be able to ambulate without AD over uneven terrain including curbs, grass and gravel without loss of balance while maintaining conversation to show improved dual task and balance ability. LTG Duration 12 weeks Gait Short Term Goal (STG) Sandeep will ambulate over smooth terrain without an assistive device with SBA without LOB for 6 minutes. STG Duration MET Detention Goal (LTG) Sandeep will ascend and descend a flight of stairs with SBA and alternating steps with 1 railing. LTG Duration 12 weeks Physical Therapy Plan Frequency and Duration Frequency of Treatment 2x/Week Duration of treatment (weeks) 10 Plan of Care Start Date 08/30/22 Plan of Care End Date 11/08/22 Next Visit Focus/Plan Next Note Type Treatment Note Next Visit Plan Discuss ellpitical vs recumbent bike Sit to stand progression, ankle/toe strengthening, gait training progressing to without AD, balance progression, consider dual task/increasing distractions as able
--- NOTE | 2022-09-02 15:59 | PT.OTN ---
Current Diagnoses Other abnormalities of gait and mobility (09/01/22) Unspecified intracranial injury with loss of consciousness status unknown, initial encounter (09/01/22) Physical Therapy Treatment Note PT-OP-A Visit Information Start: 06/14/22 15:34 Freq: Status: Active Protocol: Document 09/01/22 10:57 AMB (Rec: 09/01/22 11:29 AMB [id number]) Out-Patient Physical Therapy Visit Information Visit Information Visit Type Treatment Note Visit Start Time 10:45 Visit Stop Time 11:30 Total Visit Minutes 45 Visit Number 14 PT-OP-B Current Condition Start: 06/14/22 15:34 Freq: Status: Active Protocol: Document 06/16/22 14:32 AMB (Rec: 06/16/22 15:55 AMB [id number]) Current Condition History of Current Condition Onset Date 03/12/23 Current Complaints TBI s/p R craniotomy History of Current Condition [facility] TBI has been home since end of May. R femoral artery blood clot while hospitalized. 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 Bilateral foot pressure. Goes to [employer], goes out to eat with family, otherwise mostly at home. Was given L AFO but doesn't really use it because it is uncomfortable, currently using 4WW also has standard walker. 5 steps to enter with one railing at home. 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 Enjoyed movies/videogames. Personal Factors Other Personal Factors That May Effect Baseline social anxiety Therapy/Recovery PT-OP-C Subjective Start: 06/14/22 15:34 Freq: Status: Active Protocol: Document 09/01/22 10:57 AMB (Rec: 09/01/22 11:29 AMB [id number]) OP-PT Subjective Patient Comments Patient Reported Progress Same PT-OP-E Functional Tests Start: 06/14/22 15:34 Freq: Status: Active Protocol: Document 06/16/22 14:30 AMB (Rec: 06/16/22 16:01 AMB [id number]) Functional Tests Dynamic Gait Index (DGI) Score 15 DGI Impairment Rating 20 to <40% Impaired (Score 15- 19) PT-OP-G Mobility & Gait Start: 06/14/22 15:34 Freq: Status: Active Protocol: Document 06/16/22 14:30 AMB (Rec: 06/18/22 19:07 AMB [id number]) OP Gait Assessment Comments Gait Comments Pt ambulating with 4WW, without off the shelf L AFO as pt finds in uncomfortable. Does have poor heel strike and toe off moreso on the left but impaired bilaterally. Gait safety fatigues with dual tasking and pathfinding. Stair Climbing Evaluation Comments Stair Climbing Comments Ambulates with step to patterning with CGA and 1 railing-pt using sidestepping at home currently because it is more difficult to member services representative his railing. PT-OP-H Neuro Start: 06/14/22 15:34 Freq: Status: Active Protocol: Document 06/16/22 14:30 AMB (Rec: 06/18/22 19:07 AMB [id number]) Sensation Evaluation Comments Summary Comments 100% proprioception at ankles bilateral, lacking light touch along medial aspect of left foot, good deep pressure Muscle Tone Tone Assessment Left Lower Extremity Flexor Tone Description Mild Hypertonicity Muscle Tone Comments L foot can go into supinated and inverted positioning, no clonus palpated by tight achilles/calves L>R PT-OP-M Strength Start: 06/14/22 15:34 Freq: Status: Active Protocol: Document 06/16/22 14:30 AMB (Rec: 06/18/22 19:07 AMB [id number]) Hip Strength Hip Manual Muscle Testing Right Flexion (L2) 4+ Good+ Extension (S1) 4+ Good+ Abduction 4+ Good+ Left Flexion (L2) 4 Good Extension (S1) 4 Good Abduction 4 Good Knee Strength Knee Manual Muscle Testing Right Flexion (S2) 5 Normal Extension (L3) 5 Normal Left Flexion (S2) 4+ Good+ Extension (L3) 4+ Good+ Ankle/Foot Strength Ankle and Foot Manual Muscle Testing Right Dorsiflexion (L4) 4 Good Plantarflexion (S1) 4 Good Left Dorsiflexion (L4) 3- Fair- Plantarflexion (S1) 3- Fair- Toe Strength Toe Manual Muscle Testing Right Great Toe Flexion 5 Normal Extension 3 Fair Left Great Toe Flexion 4 Good Extension 1 Trace PT-OP-Q Treatments Start: 06/14/22 15:34 Freq: Status: Active Protocol: Document 09/01/22 10:57 AMB (Rec: 09/01/22 11:29 AMB [id number]) Cardio Equipment Treadmill Duration (Minutes) 10 Speed 2.3 Other bilateral UE support Gym Equipment Shuttle Balance 1 Details RED Comments pt dislikes tried wiht head turns but pt feels need to use UEs at that point Neuro Re-Education Treatment Balance Activities bosu balance Details pt prefers UE support- challenged. 3 step and HT Details CGA Comments cued 3 step then pause, turn head then repeat, no LOB rock and reach Comments in stride stance weight shift with arm swing- challenging to get ankle dorsiflexion hurdles Details no UE support Comments working on alternating legs 1 Details step over 12 height wooden block Comments to recreate stepping over tub - needs UE support Other Activities blue foam Details stride stance Comments EO no UE support good stability Ball toss Comments on even terrain and blue foam CG PT-OP-T Assessment and Plan Start: 06/14/22 15:34 Freq: Status: Active Protocol: Document 09/01/22 10:57 AMB (Rec: 09/01/22 11:29 AMB [id number]) Physical Therapy Assessment Goals Sit to stand Short Term Goal (STG) Sandeep will move from sit to stand from a low seat (toilet) without using upper body support. STG Duration MET HEP Short Term Goal (STG) Sandeep will be independent and consitent with a HEP to improve his strength balance and gait. STG Duration 6 weeks Balance Short Term Goal (STG) Sandeep will improve his DGI score to at least 20/24 to show improved dynamic balance and lower fall risk. 08/30: at [facility]; STG Duration MET Custodial Goal (LTG) Sandeep will be able to ambulate without AD over uneven terrain including curbs, grass and gravel without loss of balance while maintaining conversation to show improved dual task and balance ability. LTG Duration 12 weeks Gait Short Term Goal (STG) Sandeep will ambulate over smooth terrain without an assistive device with SBA without LOB for 6 minutes. STG Duration MET Custodial Goal (LTG) Sandeep will ascend and descend a flight of stairs with SBA and alternating steps with 1 railing. LTG Duration 12 weeks Physical Therapy Plan Frequency and Duration Frequency of Treatment 2x/Week Duration of treatment (weeks) 10 Plan of Care Start Date 08/30/22 Plan of Care End Date 11/08/22 Next Visit Focus/Plan Next Note Type Treatment Note Next Visit Plan Discuss ellpitical vs recumbent bike Sit to stand progression, ankle/toe strengthening, gait training progressing to without AD, balance progression, consider dual task/increasing distractions as able
--- NOTE | 2022-09-04 14:23 | PT.OTN ---
Current Diagnoses Other abnormalities of gait and mobility (09/04/22) Unspecified intracranial injury with loss of consciousness status unknown, initial encounter (09/04/22) Physical Therapy Treatment Note PT-OP-A Visit Information Start: 06/14/22 15:34 Freq: Status: Active Protocol: Document 09/04/22 10:36 AMB (Rec: 09/04/22 11:32 AMB [id number]) Out-Patient Physical Therapy Visit Information Visit Information Visit Type Treatment Note Visit Start Time 10:45 Visit Stop Time 11:30 Total Visit Minutes 45 Visit Number 15 PT-OP-B Current Condition Start: 06/14/22 15:34 Freq: Status: Active Protocol: Document 06/16/22 14:32 AMB (Rec: 06/16/22 15:55 AMB [id number]) Current Condition History of Current Condition Onset Date 03/12/23 Current Complaints TBI s/p R craniotomy History of Current Condition [facility] TBI has been home since end of May. R femoral artery blood clot while hospitalized. 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 Bilateral foot pressure. Goes to [employer], goes out to eat with family, otherwise mostly at home. Was given L AFO but doesn't really use it because it is uncomfortable, currently using 4WW also has standard walker. 5 steps to enter with one railing at home. 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 Enjoyed movies/videogames. Personal Factors Other Personal Factors That May Effect Baseline social anxiety Therapy/Recovery PT-OP-C Subjective Start: 06/14/22 15:34 Freq: Status: Active Protocol: Document 09/04/22 10:36 AMB (Rec: 09/04/22 11:32 AMB [id number]) OP-PT Subjective Patient Comments Patient Comments Pt reports that went to a friends house for a BBQ and walked over mildly uneven terrain without incident. Does feel fatigue after PT but no soreness. PT-OP-E Functional Tests Start: 06/14/22 15:34 Freq: Status: Active Protocol: Document 06/16/22 14:30 AMB (Rec: 06/16/22 16:01 AMB [id number]) Functional Tests Dynamic Gait Index (DGI) Score 15 DGI Impairment Rating 20 to <40% Impaired (Score 15- 19) PT-OP-G Mobility & Gait Start: 06/14/22 15:34 Freq: Status: Active Protocol: Document 06/16/22 14:30 AMB (Rec: 06/18/22 19:07 AMB [id number]-) OP Gait Assessment Comments Gait Comments Pt ambulating with 4WW, without off the shelf L AFO as pt finds in uncomfortable. Does have poor heel strike and toe off moreso on the left but impaired bilaterally. Gait safety fatigues with dual tasking and pathfinding. Stair Climbing Evaluation Comments Stair Climbing Comments Ambulates with step to patterning with CGA and 1 railing-pt using sidestepping at home currently because it is more difficult to fuse assembler his railing. PT-OP-H Neuro Start: 06/14/22 15:34 Freq: Status: Active Protocol: Document 06/16/22 14:30 AMB (Rec: 06/18/22 19:07 AMB [id number]-) Sensation Evaluation Comments Summary Comments 100% proprioception at ankles bilateral, lacking light touch along medial aspect of left foot, good deep pressure Muscle Tone Tone Assessment Left Lower Extremity Flexor Tone Description Mild Hypertonicity Muscle Tone Comments L foot can go into supinated and inverted positioning, no clonus palpated by tight achilles/calves L>R PT-OP-M Strength Start: 06/14/22 15:34 Freq: Status: Active Protocol: Document 06/16/22 14:30 AMB (Rec: 06/18/22 19:07 AMB [id number]-) Hip Strength Hip Manual Muscle Testing Right Flexion (L2) 4+ Good+ Extension (S1) 4+ Good+ Abduction 4+ Good+ Left Flexion (L2) 4 Good Extension (S1) 4 Good Abduction 4 Good Knee Strength Knee Manual Muscle Testing Right Flexion (S2) 5 Normal Extension (L3) 5 Normal Left Flexion (S2) 4+ Good+ Extension (L3) 4+ Good+ Ankle/Foot Strength Ankle and Foot Manual Muscle Testing Right Dorsiflexion (L4) 4 Good Plantarflexion (S1) 4 Good Left Dorsiflexion (L4) 3- Fair- Plantarflexion (S1) 3- Fair- Toe Strength Toe Manual Muscle Testing Right Great Toe Flexion 5 Normal Extension 3 Fair Left Great Toe Flexion 4 Good Extension 1 Trace PT-OP-Q Treatments Start: 06/14/22 15:34 Freq: Status: Active Protocol: Document 09/04/22 10:36 AMB (Rec: 09/04/22 11:32 AMB [id number]) Cardio Equipment Treadmill Duration (Minutes) 10 Speed 2.3 Other bilateral UE support Neuro Re-Education Treatment Balance Activities 3 step and single leg stance Comments 20' bosu balance Details pt prefers UE support- challenged. Comments less UE support today 3 step and HT Details CGA Comments cued 3 step then pause, turn head then repeat, no LOB weightshift Comments weight shifting to modified singleleg stance on foam cushion .( right toes touch) one hand to no hands balance. Mirror for visual cues to keep balance. hurdles Details no UE support Comments working on alternating legs foam pods need UE support Other Activities blue foam Details stride stance Comments EO no UE support good stability ladder drills Comments without UE Support side stepping into squares step into one square at a time alter nating steps into squares marching with pattern changes to improve neuromusclular response PT-OP-T Assessment and Plan Start: 06/14/22 15:34 Freq: Status: Active Protocol: Document 09/04/22 10:36 AMB (Rec: 09/04/22 11:32 AMB [id number]) Physical Therapy Assessment Goals Sit to stand Short Term Goal (STG) Sandeep will move from sit to stand from a low seat (toilet) without using upper body support. STG Duration MET HEP Short Term Goal (STG) Sandeep will be independent and consitent with a HEP to improve his strength balance and gait. STG Duration 6 weeks Balance Short Term Goal (STG) Sandeep will improve his DGI score to at least 20/24 to show improved dynamic balance and lower fall risk. 08/30: at eval; STG Duration MET Assisted Goal (LTG) Sandeep will be able to ambulate without AD over uneven terrain including curbs, grass and gravel without loss of balance while maintaining conversation to show improved dual task and balance ability. LTG Duration 12 weeks Gait Short Term Goal (STG) Sandeep will ambulate over smooth terrain without an assistive device with SBA without LOB for 6 minutes. STG Duration MET Sporting Goods Sales Associate Goal (LTG) Sandeep will ascend and descend a flight of stairs with SBA and alternating steps with 1 railing. LTG Duration 12 weeks Assessment Summary Assessment Sandeep is improving, needing less UE support with balance activities and tolerating slightly faster activity on the treadmill, still challenged by cross body and alternating UE/LE movement. Physical Therapy Plan Frequency and Duration Frequency of Treatment 2x/Week Duration of treatment (weeks) 10 Plan of Care Start Date 08/30/22 Plan of Care End Date 11/08/22 Therapeutic Interventions Therapeutic Interventions Gait Training,Home Exercise Program,Manual Therapy, Neuromuscular Re-education, Self-Care/Home Management, Therapeutic Activities, Therapeutic Exercises Next Visit Focus/Plan Next Note Type Treatment Note Next Visit Plan Treadmill training for speed. Sit to stand progression, ankle/toe strengthening, gait training progressing to without AD, balance progression, consider dual task/increasing distractions as able
--- NOTE | 2022-09-06 22:51 | PT.OTN ---
Current Diagnoses Other abnormalities of gait and mobility (09/06/22) Unspecified intracranial injury with loss of consciousness status unknown, initial encounter (09/06/22) Physical Therapy Treatment Note PT-OP-A Visit Information Start: 06/14/22 15:34 Freq: Status: Active Protocol: Document 09/06/22 09:16 AMB (Rec: 09/06/22 10:08 AMB [id number]) Out-Patient Physical Therapy Visit Information Visit Information Visit Type Treatment Note Visit Start Time 09:00 Visit Stop Time 09:45 Total Visit Minutes 45 Visit Number 16 PT-OP-B Current Condition Start: 06/14/22 15:34 Freq: Status: Active Protocol: Document 06/16/22 14:32 AMB (Rec: 06/16/22 15:55 AMB [id number]) Current Condition History of Current Condition Onset Date 03/12/23 Current Complaints TBI s/p R craniotomy History of Current Condition [facility] TBI has been home since end of May. R femoral artery blood clot while hospitalized. 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 Bilateral foot pressure. Goes to [employer], goes out to eat with family, otherwise mostly at home. Was given L AFO but doesn't really use it because it is uncomfortable, currently using 4WW also has standard walker. 5 steps to enter with one railing at home. 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 Enjoyed movies/videogames. Personal Factors Other Personal Factors That May Effect Baseline social anxiety Therapy/Recovery PT-OP-C Subjective Start: 06/14/22 15:34 Freq: Status: Active Protocol: Document 09/06/22 09:16 AMB (Rec: 09/06/22 10:08 AMB [id number]) OP-PT Subjective Patient Comments Patient Comments Pt reports seeing PCP at noon today. PT-OP-E Functional Tests Start: 06/14/22 15:34 Freq: Status: Active Protocol: Document 06/16/22 14:30 AMB (Rec: 06/16/22 16:01 AMB [id number]) Functional Tests Dynamic Gait Index (DGI) Score 15 DGI Impairment Rating 20 to <40% Impaired (Score 15- 19) PT-OP-G Mobility & Gait Start: 06/14/22 15:34 Freq: Status: Active Protocol: Document 06/16/22 14:30 AMB (Rec: 06/18/22 19:07 AMB [id number]) OP Gait Assessment Comments Gait Comments Pt ambulating with 4WW, without off the shelf L AFO as pt finds in uncomfortable. Does have poor heel strike and toe off moreso on the left but impaired bilaterally. Gait safety fatigues with dual tasking and pathfinding. Stair Climbing Evaluation Comments Stair Climbing Comments Ambulates with step to patterning with CGA and 1 railing-pt using sidestepping at home currently because it is more difficult to supervisor hospitality house his railing. PT-OP-H Neuro Start: 06/14/22 15:34 Freq: Status: Active Protocol: Document 06/16/22 14:30 AMB (Rec: 06/18/22 19:07 AMB [id number]-) Sensation Evaluation Comments Summary Comments 100% proprioception at ankles bilateral, lacking light touch along medial aspect of left foot, good deep pressure Muscle Tone Tone Assessment Left Lower Extremity Flexor Tone Description Mild Hypertonicity Muscle Tone Comments L foot can go into supinated and inverted positioning, no clonus palpated by tight achilles/calves L>R PT-OP-M Strength Start: 06/14/22 15:34 Freq: Status: Active Protocol: Document 06/16/22 14:30 AMB (Rec: 06/18/22 19:07 AMB [id number]-) Hip Strength Hip Manual Muscle Testing Right Flexion (L2) 4+ Good+ Extension (S1) 4+ Good+ Abduction 4+ Good+ Left Flexion (L2) 4 Good Extension (S1) 4 Good Abduction 4 Good Knee Strength Knee Manual Muscle Testing Right Flexion (S2) 5 Normal Extension (L3) 5 Normal Left Flexion (S2) 4+ Good+ Extension (L3) 4+ Good+ Ankle/Foot Strength Ankle and Foot Manual Muscle Testing Right Dorsiflexion (L4) 4 Good Plantarflexion (S1) 4 Good Left Dorsiflexion (L4) 3- Fair- Plantarflexion (S1) 3- Fair- Toe Strength Toe Manual Muscle Testing Right Great Toe Flexion 5 Normal Extension 3 Fair Left Great Toe Flexion 4 Good Extension 1 Trace PT-OP-Q Treatments Start: 06/14/22 15:34 Freq: Status: Active Protocol: Document 09/06/22 09:16 AMB (Rec: 09/06/22 10:08 AMB [id number]) Cardio Equipment Treadmill Duration (Minutes) 10 Speed 2.3 Other bilateral UE support Therapeutic Exercises Sitting Exercises therapy ball Sitting Exercise Name 65cm Comments marching, marching with alternating arm lift Standing Exercises lift training Standing Exercise Name 10# crate Reps/Minutes 5 Comments good mechanics with squat down , but cues to avoid lumbar flex when put down Gait Training Gait Activity without AD Description TUG 12 seconds x 2 Neuro Re-Education Treatment Balance Activities bosu balance Details pt prefers UE support- challenged. Comments less UE support today 3 step and HT Details CGA Comments cued 3 step then pause, turn head then repeat, no LOB hurdles Details no UE support Comments working on alternating legs foam pods need UE support Other Activities Cones Comments scanning environment for 10 cones of specific colors. Pt given 1 and 2 part instructions, but did struggle more with 2 part. PT-OP-T Assessment and Plan Start: 06/14/22 15:34 Freq: Status: Active Protocol: Document 09/06/22 09:16 AMB (Rec: 09/06/22 10:08 AMB [id number]) Physical Therapy Assessment Assessment Summary Assessment 12 second TUG. Improved 5 seconds from a few weeks ago. Overall doing well with lift/ carry. Physical Therapy Plan Frequency and Duration Frequency of Treatment 2x/Week Duration of treatment (weeks) 10 Plan of Care Start Date 08/30/22 Plan of Care End Date 11/08/22 Therapeutic Interventions Therapeutic Interventions Gait Training,Home Exercise Program,Manual Therapy, Neuromuscular Re-education, Self-Care/Home Management, Therapeutic Activities, Therapeutic Exercises Next Visit Focus/Plan Next Note Type Treatment Note Next Visit Plan Treadmill training for speed. Sit to stand progression, ankle/toe strengthening, gait training progressing to without AD, balance progression, consider dual task/increasing distractions as able
--- NOTE | 2022-09-20 15:38 | PT.OTN ---
Current Diagnoses Other abnormalities of gait and mobility (09/20/22) Unspecified intracranial injury with loss of consciousness status unknown, initial encounter (09/20/22) Physical Therapy Treatment Note PT-OP-A Visit Information Start: 06/14/22 15:34 Freq: Status: Active Protocol: Document 09/20/22 12:00 AMB (Rec: 09/21/22 15:35 AMB [id number]) Out-Patient Physical Therapy Visit Information Visit Information Visit Type Treatment Note Visit Start Time 12:00 Visit Stop Time 12:45 Total Visit Minutes 45 Visit Number 17 PT-OP-B Current Condition Start: 06/14/22 15:34 Freq: Status: Active Protocol: Document 06/16/22 14:32 AMB (Rec: 06/16/22 15:55 AMB [id number]) Current Condition History of Current Condition Onset Date 03/12/23 Current Complaints TBI s/p R craniotomy History of Current Condition [facility] TBI has been home since end of May. R femoral artery blood clot while hospitalized. 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 Bilateral foot pressure. Goes to [employer], goes out to eat with family, otherwise mostly at home. Was given L AFO but doesn't really use it because it is uncomfortable, currently using 4WW also has standard walker. 5 steps to enter with one railing at home. 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 Enjoyed movies/videogames. Personal Factors Other Personal Factors That May Effect Baseline social anxiety Therapy/Recovery PT-OP-C Subjective Start: 06/14/22 15:34 Freq: Status: Active Protocol: Document 09/20/22 12:00 AMB (Rec: 09/21/22 15:35 AMB [id number]) OP-PT Subjective Patient Comments Patient Comments Pt attends with dad and mom. Dad reports MD extended disability to December. PT-OP-E Functional Tests Start: 06/14/22 15:34 Freq: Status: Active Protocol: Document 06/16/22 14:30 AMB (Rec: 06/16/22 16:01 AMB [id number]) Functional Tests Dynamic Gait Index (DGI) Score 15 DGI Impairment Rating 20 to <40% Impaired (Score 15- 19) PT-OP-G Mobility & Gait Start: 06/14/22 15:34 Freq: Status: Active Protocol: Document 06/16/22 14:30 AMB (Rec: 06/18/22 19:07 AMB [id number]) OP Gait Assessment Comments Gait Comments Pt ambulating with 4WW, without off the shelf L AFO as pt finds in uncomfortable. Does have poor heel strike and toe off moreso on the left but impaired bilaterally. Gait safety fatigues with dual tasking and pathfinding. Stair Climbing Evaluation Comments Stair Climbing Comments Ambulates with step to patterning with CGA and 1 railing-pt using sidestepping at home currently because it is more difficult to funding specialist his railing. PT-OP-H Neuro Start: 06/14/22 15:34 Freq: Status: Active Protocol: Document 06/16/22 14:30 AMB (Rec: 06/18/22 19:07 AMB [id number]-) Sensation Evaluation Comments Summary Comments 100% proprioception at ankles bilateral, lacking light touch along medial aspect of left foot, good deep pressure Muscle Tone Tone Assessment Left Lower Extremity Flexor Tone Description Mild Hypertonicity Muscle Tone Comments L foot can go into supinated and inverted positioning, no clonus palpated by tight achilles/calves L>R PT-OP-M Strength Start: 06/14/22 15:34 Freq: Status: Active Protocol: Document 06/16/22 14:30 AMB (Rec: 06/18/22 19:07 AMB [id number]-) Hip Strength Hip Manual Muscle Testing Right Flexion (L2) 4+ Good+ Extension (S1) 4+ Good+ Abduction 4+ Good+ Left Flexion (L2) 4 Good Extension (S1) 4 Good Abduction 4 Good Knee Strength Knee Manual Muscle Testing Right Flexion (S2) 5 Normal Extension (L3) 5 Normal Left Flexion (S2) 4+ Good+ Extension (L3) 4+ Good+ Ankle/Foot Strength Ankle and Foot Manual Muscle Testing Right Dorsiflexion (L4) 4 Good Plantarflexion (S1) 4 Good Left Dorsiflexion (L4) 3- Fair- Plantarflexion (S1) 3- Fair- Toe Strength Toe Manual Muscle Testing Right Great Toe Flexion 5 Normal Extension 3 Fair Left Great Toe Flexion 4 Good Extension 1 Trace PT-OP-Q Treatments Start: 06/14/22 15:34 Freq: Status: Active Protocol: Document 09/20/22 12:00 AMB (Rec: 09/21/22 15:35 AMB [id number]) Cardio Equipment Treadmill Duration (Minutes) 10 Speed 2.3>>2.5 Other bilateral UE support Therapeutic Exercises Standing Exercises lift training Standing Exercise Name 10# crate Reps/Minutes 5 Comments good mechanics with squat down , but cues to avoid lumbar flex when put down mini lunges Reps/Minutes 10 Comments with UE support Therapeutic Activity Therapeutic Activity floor transfer training Name SBA Comments no environmental support. Got down into kneeling and back up without UE support x2 Gait Training Gait Activity without AD Description TUG 12 seconds x 2 Neuro Re-Education Treatment Balance Activities single leg stance Comments 20 seconds on L but 1-3 on R PT-OP-T Assessment and Plan Start: 06/14/22 15:34 Freq: Status: Active Protocol: Document 09/20/22 12:34 AMB (Rec: 09/20/22 12:50 AMB [id number]) Physical Therapy Assessment Goals Sit to stand Short Term Goal (STG) Sandeep will move from sit to stand from a low seat (toilet) without using upper body support. STG Duration MET HEP Short Term Goal (STG) Sandeep will be independent and consitent with a HEP to improve his strength balance and gait. STG Duration 6 weeks Balance Short Term Goal (STG) Sandeep will improve his DGI score to at least 20/24 to show improved dynamic balance and lower fall risk. 08/30: at [facility]; STG Duration MET Shelter Goal (LTG) Sandeep will be able to ambulate without AD over uneven terrain including curbs, grass and gravel without loss of balance while maintaining conversation to show improved dual task and balance ability. LTG Duration 12 weeks Gait Short Term Goal (STG) Sandeep will ambulate over smooth terrain without an assistive device with SBA without LOB for 6 minutes. STG Duration MET Heel Cover Softener Goal (LTG) Sandeep will ascend and descend a flight of stairs with SBA and alternating steps with 1 railing. LTG Duration 12 weeks Assessment Summary Assessment 12 sec TUG, floor tx without UE support. TUG was same as a few weeks ago, still slower than age norms but overall better stability and willingness to ambulate with increased speed and increased UE swing and trunk rotation. Was able to perform floor transfer [facility] and home UE support for the first time. Physical Therapy Plan Frequency and Duration Frequency of Treatment 2x/Week Duration of treatment (weeks) 10 Plan of Care Start Date 08/30/22 Plan of Care End Date 11/08/22 Therapeutic Interventions Therapeutic Interventions Gait Training,Home Exercise Program,Manual Therapy, Neuromuscular Re-education, Self-Care/Home Management, Therapeutic Activities, Therapeutic Exercises Next Visit Focus/Plan Next Note Type Treatment Note Next Visit Plan Treadmill training for speed. Sit to stand progression, ankle/toe strengthening, gait training progressing to without AD, balance progression, consider dual task/increasing distractions as able
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
--- NOTE | 2022-10-17 10:01 | PT.OTN ---
Current Diagnoses Other abnormalities of gait and mobility (10/17/22) Unspecified intracranial injury without loss of consciousness, sequela (10/17/22) Unspecified intracranial injury with loss of consciousness status unknown, initial encounter (10/17/22) Physical Therapy Treatment Note PT-OP-A Visit Information Start: 06/14/22 15:34 Freq: Status: Active Protocol: Document 10/17/22 09:06 AMB (Rec: 10/17/22 10:01 AMB [id number]) Out-Patient Physical Therapy Visit Information Visit Information Visit Type Treatment Note Visit Start Time 09:00 Visit Stop Time 09:45 Total Visit Minutes 45 Visit Number 20 PT-OP-B Current Condition Start: 06/14/22 15:34 Freq: Status: Active Protocol: Document 06/16/22 14:32 AMB (Rec: 06/16/22 15:55 AMB [id number]) Current Condition History of Current Condition Onset Date 03/12/23 Current Complaints TBI s/p R craniotomy History of Current Condition [facility] TBI has been home since end of May. R femoral artery blood clot while hospitalized. 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 Bilateral foot pressure. Goes to [employer], goes out to eat with family, otherwise mostly at home. Was given L AFO but doesn't really use it because it is uncomfortable, currently using 4WW also has standard walker. 5 steps to enter with one railing at home. 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 Enjoyed movies/videogames. Personal Factors Other Personal Factors That May Effect Baseline social anxiety Therapy/Recovery PT-OP-C Subjective Start: 06/14/22 15:34 Freq: Status: Active Protocol: Document 10/17/22 09:06 AMB (Rec: 10/17/22 10:01 AMB [id number]) OP-PT Subjective Patient Comments Patient Comments Talked with Sandeep and dad about problem solving and navigating, still unsure if pt could manage grocery shopping independently due to pathfinding, getting frustrated at times. PT-OP-E Functional Tests Start: 06/14/22 15:34 Freq: Status: Active Protocol: Document 06/16/22 14:30 AMB (Rec: 06/16/22 16:01 AMB [id number]) Functional Tests Dynamic Gait Index (DGI) Score 15 DGI Impairment Rating 20 to <40% Impaired (Score 15- 19) PT-OP-G Mobility & Gait Start: 06/14/22 15:34 Freq: Status: Active Protocol: Document 06/16/22 14:30 AMB (Rec: 06/18/22 19:07 AMB [id number]) OP Gait Assessment Comments Gait Comments Pt ambulating with 4WW, without off the shelf L AFO as pt finds in uncomfortable. Does have poor heel strike and toe off moreso on the left but impaired bilaterally. Gait safety fatigues with dual tasking and pathfinding. Stair Climbing Evaluation Comments Stair Climbing Comments Ambulates with step to patterning with CGA and 1 railing-pt using sidestepping at home currently because it is more difficult to economics teacher his railing. PT-OP-H Neuro Start: 06/14/22 15:34 Freq: Status: Active Protocol: Document 06/16/22 14:30 AMB (Rec: 06/18/22 19:07 AMB [id number]-) Sensation Evaluation Comments Summary Comments 100% proprioception at ankles bilateral, lacking light touch along medial aspect of left foot, good deep pressure Muscle Tone Tone Assessment Left Lower Extremity Flexor Tone Description Mild Hypertonicity Muscle Tone Comments L foot can go into supinated and inverted positioning, no clonus palpated by tight achilles/calves L>R PT-OP-M Strength Start: 06/14/22 15:34 Freq: Status: Active Protocol: Document 06/16/22 14:30 AMB (Rec: 06/18/22 19:07 AMB [id number]-) Hip Strength Hip Manual Muscle Testing Right Flexion (L2) 4+ Good+ Extension (S1) 4+ Good+ Abduction 4+ Good+ Left Flexion (L2) 4 Good Extension (S1) 4 Good Abduction 4 Good Knee Strength Knee Manual Muscle Testing Right Flexion (S2) 5 Normal Extension (L3) 5 Normal Left Flexion (S2) 4+ Good+ Extension (L3) 4+ Good+ Ankle/Foot Strength Ankle and Foot Manual Muscle Testing Right Dorsiflexion (L4) 4 Good Plantarflexion (S1) 4 Good Left Dorsiflexion (L4) 3- Fair- Plantarflexion (S1) 3- Fair- Toe Strength Toe Manual Muscle Testing Right Great Toe Flexion 5 Normal Extension 3 Fair Left Great Toe Flexion 4 Good Extension 1 Trace PT-OP-Q Treatments Start: 06/14/22 15:34 Freq: Status: Active Protocol: Document 10/17/22 09:06 AMB (Rec: 10/17/22 10:01 AMB [id number]) Therapeutic Exercises Standing Exercises lift training Standing Exercise Name 10# crate Reps/Minutes 10 Comments good mechanics with squat down , but cues to avoid lumbar flex when put down Gait Training Gait Activity without AD Comments smooth 400' no AD, cue arm swing increasing speed, pt continues to have difficluty with dual task stairs Device Used railing Comments 2 flights, ascending step over step, descending step; carrying a ball up the stairs. Neuro Re-Education Treatment Balance Activities bosu balance Details pt prefers UE support- challenged. Comments less UE support today hurdles Details no UE support Comments working on alternating legs foam pods need UE support PT-OP-T Assessment and Plan Start: 06/14/22 15:34 Freq: Status: Active Protocol: Document 10/17/22 09:06 AMB (Rec: 10/17/22 10:01 AMB [id number]) Physical Therapy Assessment Goals Sit to stand Short Term Goal (STG) Sandeep will move from sit to stand from a low seat (toilet) without using upper body support. STG Duration MET HEP Short Term Goal (STG) Sandeep will be independent and consitent with a HEP to improve his strength balance and gait. STG Duration 6 weeks Balance Short Term Goal (STG) Sandeep will improve his DGI score to at least 20/24 to show improved dynamic balance and lower fall risk. 08/30: at [facility]; STG Duration MET Mine Analyst Goal (LTG) Sandeep will be able to ambulate without AD over uneven terrain including curbs, grass and gravel without loss of balance while maintaining conversation to show improved dual task and balance ability. LTG Duration 12 weeks Gait Short Term Goal (STG) Sandeep will ambulate over smooth terrain without an assistive device with SBA without LOB for 6 minutes. STG Duration MET Mine Analyst Goal (LTG) Sandeep will ascend and descend a flight of stairs with SBA and alternating steps with 1 railing. LTG Duration 12 weeks Assessment Summary Assessment Discussed vocational rehab and gave dad phone number. encouraged pt to consider weight training as he does need some form of exercise. Did discuss pathfinding in the grocery store. Physical Therapy Plan Frequency and Duration Frequency of Treatment 2x/Week Duration of treatment (weeks) 10 Plan of Care Start Date 08/30/22 Plan of Care End Date 11/08/22 Therapeutic Interventions Therapeutic Interventions Gait Training,Home Exercise Program,Manual Therapy, Neuromuscular Re-education, Self-Care/Home Management, Therapeutic Activities, Therapeutic Exercises Next Visit Focus/Plan Next Note Type Treatment Note Next Visit Plan Treadmill training for speed. Sit to stand progression, ankle/toe strengthening, gait training progressing to without AD, balance progression, consider dual task/increasing distractions as able
--- NOTE | 2022-10-24 16:24 | PT.OTN ---
Current Diagnoses Other abnormalities of gait and mobility (10/24/22) Unspecified intracranial injury without loss of consciousness, sequela (10/24/22) Unspecified intracranial injury with loss of consciousness status unknown, initial encounter (10/24/22) Physical Therapy Treatment Note PT-OP-A Visit Information Start: 06/14/22 15:34 Freq: Status: Active Protocol: Document 10/24/22 13:11 AMB (Rec: 10/24/22 13:34 AMB [id number]) Out-Patient Physical Therapy Visit Information Visit Information Visit Type Treatment Note Visit Start Time 09:00 Visit Stop Time 09:45 Total Visit Minutes 45 Visit Number 21 PT-OP-B Current Condition Start: 06/14/22 15:34 Freq: Status: Active Protocol: Document 06/16/22 14:32 AMB (Rec: 06/16/22 15:55 AMB [id number]) Current Condition History of Current Condition Onset Date 03/12/23 Current Complaints TBI s/p R craniotomy History of Current Condition [facility] TBI has been home since end of May. R femoral artery blood clot while hospitalized. 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 Bilateral foot pressure. Goes to [employer], goes out to eat with family, otherwise mostly at home. Was given L AFO but doesn't really use it because it is uncomfortable, currently using 4WW also has standard walker. 5 steps to enter with one railing at home. 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 Enjoyed movies/videogames. Personal Factors Other Personal Factors That May Effect Baseline social anxiety Therapy/Recovery PT-OP-C Subjective Start: 06/14/22 15:34 Freq: Status: Active Protocol: Document 10/24/22 15:46 AMB (Rec: 10/24/22 16:00 AMB [id number]) OP-PT Subjective Patient Comments Patient Comments Sandeep and his dad have not tried to pathfind in the grocery store yet. Overall dad is concerned about Sandeep not being motivated to move now that PT is ending. PT-OP-E Functional Tests Start: 06/14/22 15:34 Freq: Status: Active Protocol: Document 06/16/22 14:30 AMB (Rec: 06/16/22 16:01 AMB [id number]) Functional Tests Dynamic Gait Index (DGI) Score 15 DGI Impairment Rating 20 to <40% Impaired (Score 15- 19) PT-OP-G Mobility & Gait Start: 06/14/22 15:34 Freq: Status: Active Protocol: Document 06/16/22 14:30 AMB (Rec: 06/18/22 19:07 AMB [id number]) OP Gait Assessment Comments Gait Comments Pt ambulating with 4WW, without off the shelf L AFO as pt finds in uncomfortable. Does have poor heel strike and toe off moreso on the left but impaired bilaterally. Gait safety fatigues with dual tasking and pathfinding. Stair Climbing Evaluation Comments Stair Climbing Comments Ambulates with step to patterning with CGA and 1 railing-pt using sidestepping at home currently because it is more difficult to bomb loader his railing. PT-OP-H Neuro Start: 06/14/22 15:34 Freq: Status: Active Protocol: Document 06/16/22 14:30 AMB (Rec: 06/18/22 19:07 AMB [id number]-) Sensation Evaluation Comments Summary Comments 100% proprioception at ankles bilateral, lacking light touch along medial aspect of left foot, good deep pressure Muscle Tone Tone Assessment Left Lower Extremity Flexor Tone Description Mild Hypertonicity Muscle Tone Comments L foot can go into supinated and inverted positioning, no clonus palpated by tight achilles/calves L>R PT-OP-M Strength Start: 06/14/22 15:34 Freq: Status: Active Protocol: Document 06/16/22 14:30 AMB (Rec: 06/18/22 19:07 AMB [id number]-) Hip Strength Hip Manual Muscle Testing Right Flexion (L2) 4+ Good+ Extension (S1) 4+ Good+ Abduction 4+ Good+ Left Flexion (L2) 4 Good Extension (S1) 4 Good Abduction 4 Good Knee Strength Knee Manual Muscle Testing Right Flexion (S2) 5 Normal Extension (L3) 5 Normal Left Flexion (S2) 4+ Good+ Extension (L3) 4+ Good+ Ankle/Foot Strength Ankle and Foot Manual Muscle Testing Right Dorsiflexion (L4) 4 Good Plantarflexion (S1) 4 Good Left Dorsiflexion (L4) 3- Fair- Plantarflexion (S1) 3- Fair- Toe Strength Toe Manual Muscle Testing Right Great Toe Flexion 5 Normal Extension 3 Fair Left Great Toe Flexion 4 Good Extension 1 Trace PT-OP-Q Treatments Start: 06/14/22 15:34 Freq: Status: Active Protocol: Document 10/24/22 15:46 AMB (Rec: 10/24/22 16:00 AMB [id number]) Therapeutic Exercises Standing Exercises mini lunges Reps/Minutes 10 Comments with UE support squats Standing Exercise Name 10# lift up from the floor. Reps/Minutes 10 Comments full squat Gait Training Gait Activity without AD Comments TUG x 3 avg 12 sec stairs Device Used railing Comments 2 flights, ascending step over step and descending step over step carrying a ball up the stairs. Neuro Re-Education Treatment Balance Activities single leg stance Comments 20 seconds on L but up to 7 on R PT-OP-T Assessment and Plan Start: 06/14/22 15:34 Freq: Status: Active Protocol: Document 10/24/22 13:11 AMB (Rec: 10/24/22 13:34 AMB [id number]) Physical Therapy Assessment Goals Sit to stand Short Term Goal (STG) Sandeep will move from sit to stand from a low seat (toilet) without using upper body support. STG Duration MET HEP Short Term Goal (STG) Sandeep will be independent and consitent with a HEP to improve his strength balance and gait. STG Duration PARTIALLY MET- pt with difficulty with carryover Balance Short Term Goal (STG) Sandeep will improve his DGI score to at least 20/24 to show improved dynamic balance and lower fall risk. 08/30: at [facility]; STG Duration MET Custodial Goal (LTG) Sandeep will be able to ambulate without AD over uneven terrain including curbs, grass and gravel without loss of balance while maintaining conversation to show improved dual task and balance ability. LTG Duration MET Gait Short Term Goal (STG) Sandeep will ambulate over smooth terrain without an assistive device with SBA without LOB for 6 minutes. STG Duration MET Custodial Goal (LTG) Sandeep will ascend and descend a flight of stairs with SBA and alternating steps with 1 railing. LTG Duration MET Assessment Summary Assessment Sandeep improved his Timed up and Go time to 12 seconds. Doing well with strengthening, squats, lunges and has improved his balance significantly in his itme in PT. Overall there are concerns regarding his readines to return to work, most signficantly ladders. His confidence with stairs has improved with PT, but carrying items up the stairs could still be concerning. Encouraged family to look into vocational rehab and speech therapy. Gave patient and family handout of exercises to continue with independently. Physical Therapy Plan Frequency and Duration Frequency of Treatment 2x/Week Duration of treatment (weeks) 10 Plan of Care Start Date 08/30/22 Plan of Care End Date 11/08/22 Therapeutic Interventions Therapeutic Interventions Gait Training,Home Exercise Program,Manual Therapy, Neuromuscular Re-education, Self-Care/Home Management, Therapeutic Activities, Therapeutic Exercises Discharge Physical Therapy Discharge Reasons Goals Met
== END 2022-10-26 16:33 | disposition home or self-care (01) ==
LOC: PHYS 12:45
PROVIDERS: Absent Provider Nurse Practitioner; Family Provider Nurse Practitioner; PCP Nurse Practitioner
DX: S06.9X0S Unspecified intracranial injury without loss of consciousness, sequela (principal); R26.89 Other abnormalities of gait and mobility; S06.9XAA Unspecified intracranial injury with loss of consciousness status unknown, initial encounter
CPT/HCPCS: 97110; 97112; 97116; 97162; 97530

== ENCOUNTER 2022-11-10 09:45 | Outpatient (RCR) | payer OTHER, MEDICAID, SELFPAY ==
--- NOTE | 2022-06-13 15:30 | OT.OP.EVAL ---
Visit Care Team Role Provider Type KIMI Robbins Family Provider Non-Staff Primary Care Provider Specialty: Nursing Address: [facility] [address], [address], [place], [address] Email: Attending Provider Referring Provider Specialty: Address: Phone: Fax: Email: Occupational Therapy Initial Evaluation OT Outpatient Adult Evaluation Start: 06/15/22 09:31 Freq: Status: Active Protocol: Document 06/13/22 15:30 AMS (Rec: 06/15/22 10:19 AMS [id number]) General Information - Adult Plan of Care Dates 06/13/22 - 07/25/22 Insurance Information [employer]; changing to [facility] beginning of July Visit Start Time 10:15 Visit Stop Time 11:15 Total Visit Minutes 60 Treatment Setting Outpatient Care Note Type Initial Evaluation Identification Confirmed Yes Identification Confirmed By Self; parents Goals Treatment Review of findings; discussion pertaining to OT goals/ treatment and findings. Short Term Goals 1. Sandeep will present with increased right upper extremity strength which will support return to work: 1a. 5/5 MMT R sh flexion. 1b. 5/5 MMT R sh extension. 1c. 5/5 MMT R sh abduction. 1d. 5/5 MMT R elbow flexion. 1e. 5/5 MMT R elbow extension . Senior Living Goals 1. Sandeep will be modified independent with execution of home exercise program utilizing provided written and visual instructions from therapist with support of his family. 2. Based on self-report, Sandeep will be manage dressing set- up on a daily basis (x 7 days) utilizing modifications/ supports as needed with modified independence. 3. Based on self-report, Sandeep will be executing bathing with modified independence ( utilizing AE/modifications/ supports as needed). Assessment/Plan Treatment Assessment Sandeep is a 31 year-old right hand dominant male 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 Medical history significant for intracranial hemorrhage, critical polytrauma, CSF leak, DVT (R LE), recurrent major depressive disorder and social anxiety disorder. Patient is taking Baclofen, 20 mg 3 x daily. Report of L AFO; (-) wearing AFO; use of walker w/ ambulation/gait w/ c/o dizzness w/ s-s. CGA x 1 s-s observed; SBA x 1 s-s w/ decreased safety (w/ pulling up on FWW versus pushing up from armrests). Denial of fall (s) since d/c to home. Sandeep was accompanied by his Mother, Malka, and Father, Glenn, to initial evaluation and treatment. Intake paperwork was completed by Glenn, Sandeep's Father. Sandeep verbally denied UE pain/discomfort. Indication of 2 out of 10 relative to PEG tube placement post- sleeping; 3 out of 10 relative to R big toe, 2 out of 10 L ankle, 1 out of 10 top of L foot. QuickDASH UE Outcome Measure Score = 50.0; QuickDASH Work Module Score = 75.0. 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 Sandeep resides in a 3- bedroom home with his family. Evaluation findings: Current level of function: Parents will assist w/ transfers, bed mobility, bathing, dressing set-up. Decreased engagement in previously identified meaningful activities of daily living (deirdre). He is dependent with community mobility. Denial of fatigue and/or napping. (-) orientation to date. (-) ability to recall personal cell phone number; however, this reportedly is baseline. ( +) orientation to . (+) use of cellphone for messaging and social media. B UE AROM. Able to oppose thumbs bilaterally to each digit pad with EO and EC without difficulties. Right shoulder/ elbow weakness; decreased bilateral gip strength. Correctly identified 38 out of 40 items w/ visual scanning task; not observed to need to reference item 2-digit numbers at bottom of page throughout task completion; (-) erratic scanning noted. (-) frustration noted w/ visual scanning and/or MVPT-4 assessments. The Motor-Free Visual Perception Test (4th ed .) (MVPT-4) is an individually administered assessment of visual-perceptual skills. The MVPT-4 tasks provide information for five types of visual-perceptual abilities: spatial relationships, visual discrimination, figure-ground, visual closure, and visual memory. Sandeep obtained a raw score of 21 which was converted to a standard score of 61 which is > 2 SD below the mean. Sandeep's performance suggests that his visual perceptual abilities are less than/impaired when compared to that of his peers. 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 Further evaluation of visual perceptual skills is recommended; need to determine if current level is baseline. Length of treatment (weeks) 6 Plan of Care Start Date 06/13/22 Plan of Care End Date 07/25/22 Treatment Frequency Once a Week Therapeutic Contents Active Range of Motion, Adaptive Equipment Education, Client Education,Cognitive Skills Development,Functional Activities,Home Exercise Program,Joint Protection, Education,Neurodevelopment Treatment,Neuromuscular Re- Education,Self-Care,Stretching /Flexibility Activities, Therapeutic Activities, Therapeutic Exercises
--- NOTE | 2022-06-26 15:37 | OT.OP.TRT ---
Visit Care Team Role Provider Type KIMI Robbins Family Provider Non-Staff Primary Care Provider Specialty: Nursing Address: [facility] [address], [address], [place], [address] Email: Attending Provider Referring Provider Specialty: Address: Phone: Fax: Email: Occupational Therapy Treatment Note OT Outpatient Treatment Note - Adult Start: 06/15/22 09:31 Freq: Status: Active Protocol: Document 06/26/22 15:26 AMS (Rec: 06/26/22 15:37 AMS [id number]) OT Outpatient Adult Treatment Note Session Time Visit Start Time 13:30 Visit Stop Time 14:10 Total Visit Minutes 40 Visit Information Plan of Care Dates 06/13/22 - 07/25/22 Insurance Information [employer]; changing to [facility] beginning of July Setting Treatment Setting Outpatient Care Visit Type Note Type Treatment Note General Information General Information Sandeep is a 31 year-old right hand dominant male 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 Medical history significant for intracranial hemorrhage, critical polytrauma, CSF leak, DVT (R LE), recurrent major depressive disorder and social anxiety disorder. Patient is taking Baclofen, 20 mg 3 x daily. Report of L AFO; (-) wearing AFO; use of walker w/ ambulation/gait w/ c/o dizzness w/ s-s. CGA x 1 s-s observed; SBA x 1 s-s w/ decreased safety (w/ pulling up on FWW versus pushing up from armrests). Denial of fall (s) since d/c to home. Sandeep was accompanied by his Mother, Malka, and Father, Glenn, to initial evaluation and treatment. Intake paperwork was completed by Glenn, Sandeep's Father. Sandeep verbally denied UE pain/discomfort. Indication of 2 out of 10 relative to PEG tube placement post- sleeping; 3 out of 10 relative to R big toe, 2 out of 10 L ankle, 1 out of 10 top of L foot. QuickDASH UE Outcome Measure Score = 50.0; QuickDASH Work Module Score = 75.0. 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 Sandeep resides in a 3- bedroom home with his family. - Subjective Identification Type Name Identification Reconciled With Medical Record Observations Sandeep was accompanied by his Mother, Malka, for the entire session; his Mother and Father , Glenn, provided transportation of Sandeep to and from session. Sandeep reportedly has transitioned to shower chair w / bathing; he has started to do some 'deirdre' on his PS4. Per Malka, he has not yet transitioned to quadriped work w/ PT given focus on endurance and balance. Malka inquired into Sandeep's ability to wear screen versus mask in clinic d/t h/o facial fractures and discomfort w/ wearing mask and exercising. Patient Expectation/Goals Return to full-time work at [employer]; independence w/ IADLS/BADLs - Objective Objective Measurements Please refer to below for progress towards meeting established OT goals: Short Term Goals 1. Sandeep will present with increased right upper extremity strength which will support return to work: 1a. 5/5 MMT R sh flexion. 1b. 5/5 MMT R sh extension. 1c. 5/5 MMT R sh abduction. 1d. 5/5 MMT R elbow flexion. 1e. 5/5 MMT R elbow extension . Control Specialist Goals 1. Sandeep will be modified independent with execution of home exercise program utilizing provided written and visual instructions from therapist with support of his family. 2. Based on self-report, Sandeep will be manage dressing set- up on a daily basis (x 7 days) utilizing modifications/ supports as needed with modified independence. 3. Based on self-report, Sandeep will be executing bathing with modified independence ( utilizing AE/modifications/ supports as needed). - Exercises 4 Descriptor UE strengthening. TB use. Instructed in tricep strengthening w/ TB #4. 1 x 10 each side. 3 Descriptor UE strengthening. Use of weighted ball. 5.5# weighted ball pass. 3 x 10. 5.5# weighted ball pass around body. 1 x 10 cycles both directions. 5.5# weighted ball press above head w/ B hands. 2 x 10. 2 Descriptor Body weight UE strength training. Modified dips at EOM. 1 x 10. 1 Descriptor UEB. Seated. x 10 minutes. - Assessment Assessment of Improvement Increasing engagement in deirdre in room (PS4). Difficulties playing new/ unfamiliar games on deirdre device. Initiated HEP for UE strengthening; discussed functional activities to support UE strengthening as well. Will monitor progress with balance to support upgrading of UE strengthening exercises; recommend considering quadriped work in future sessions. Overall, good session. Sandeep would likely benefit from skilled outpatient OT to address functional independence, right shoulder/ elbow weakness, bilateral radiologic technologist mammogram strength weakness, and his ability to successfully participate in meaningful activities (e.g., deirdre, movie watching) and return to work. Further evaluation of visual perceptual skills is recommended; need to determine if current level is baseline. Home Exercise Program Provided w/ TB#4 for personal home use; 2 knots were made on TB to assist w/ hand positioning. Instructed to complete 2 sets of 10 repetitions. Instructed in proper wrist positioning ( neutral wrist position). - Plan Therapy Recommendations Continue with Current Program, Advance per Rehabilitation Protocol
--- NOTE | 2022-07-03 11:35 | OT.OP.TRT ---
Visit Care Team Role Provider Type KIMI Robbins Family Provider Non-Staff Primary Care Provider Specialty: Nursing Address: [facility] [address], [address], [place], [address] Email: Attending Provider Referring Provider Specialty: Address: Phone: Fax: Email: Occupational Therapy Treatment Note OT Outpatient Treatment Note - Adult Start: 06/15/22 09:31 Freq: Status: Active Protocol: Document 07/03/22 11:27 AMS (Rec: 07/03/22 11:35 AMS [id number]) OT Outpatient Adult Treatment Note Session Time Visit Start Time 10:30 Visit Stop Time 11:15 Total Visit Minutes 45 Visit Information Plan of Care Dates 06/13/22 - 07/25/22 Insurance Information [employer]; changing to [facility] beginning of July Setting Treatment Setting Outpatient Care Visit Type Note Type Treatment Note General Information General Information Sandeep is a 31 year-old right hand dominant male 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 Medical history significant for intracranial hemorrhage, critical polytrauma, CSF leak, DVT (R LE), recurrent major depressive disorder and social anxiety disorder. Patient is taking Baclofen, 20 mg 3 x daily. Report of L AFO; (-) wearing AFO; use of walker w/ ambulation/gait w/ c/o dizzness w/ s-s. CGA x 1 s-s observed; SBA x 1 s-s w/ decreased safety (w/ pulling up on FWW versus pushing up from armrests). Denial of fall (s) since d/c to home. Sandeep was accompanied by his Mother, Malka, and Father, Glenn, to initial evaluation and treatment. Intake paperwork was completed by Glenn, Sandeep's Father. Sandeep verbally denied UE pain/discomfort. Indication of 2 out of 10 relative to PEG tube placement post- sleeping; 3 out of 10 relative to R big toe, 2 out of 10 L ankle, 1 out of 10 top of L foot. QuickDASH UE Outcome Measure Score = 50.0; QuickDASH Work Module Score = 75.0. 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 Sandeep resides in a 3- bedroom home with his family. - Subjective Identification Type Name Identification Reconciled With Medical Record Observations Sandeep was accompanied by his Mother, Malka, and his Father, Glenn, for the full/portion of the treatment session. Parents provided transportation of Sandeep to and from session. Malka reported that he had to undergo all the 'same testing' on Sunday that he underwent at time of initial fall; Sandeep reported feeling 'dizzy' since having the CAT scan on Sunday and having an 'easy' weekend. Patient Expectation/Goals Return to full-time work at [employer]; independence w/ IADLS/BADLs - Objective Objective Measurements Please refer to below for progress towards meeting established OT goals: Short Term Goals 1. Sandeep will present with increased right upper extremity strength which will support return to work: 1a. 5/5 MMT R sh flexion. 1b. 5/5 MMT R sh extension. 1c. 5/5 MMT R sh abduction. 1d. 5/5 MMT R elbow flexion. 1e. 5/5 MMT R elbow extension . Half-Way Goals 1. Sandeep will be modified independent with execution of home exercise program utilizing provided written and visual instructions from therapist with support of his family. 2. Based on self-report, Sandeep will be manage dressing set- up on a daily basis (x 7 days) utilizing modifications/ supports as needed with modified independence. 3. Based on self-report, Sandeep will be executing bathing with modified independence ( utilizing AE/modifications/ supports as needed). - Exercises 5 Descriptor Seated trunk/core strengthening. Trunk flex/ext. 2 x 10. Trunk flex/ext; 1 LE lifted off the floor. 2 x 10. 4 Descriptor UE strengthening. TB use seated. TB #4. Pec press. 2 x 10. TB #4. Bilateral sh ext. 2 x 10. TB #4. Bilateral seated row. 2 x 10. 3 Descriptor UE strengthening. Use of weighted ball. 5.5# weighted ball pass. 3 x 10. 5.5# weighted ball pass around body. 1 x 10 cycles both directions. 5.5# weighted ball press above head w/ B hands. 2 x 10. 2 Descriptor Body weight UE strength training. Modified dips at EOM. 1 x 10. 1 Descriptor UEB. Seated. x 10 minutes. - Assessment Assessment of Improvement Report of increased dizziness since undergoing assessments that were completed at initial fall (Sunday). Upgraded ther ex completed in treatment session; no c/o of pain/ discomfort and/or exercises/ activities being too difficult . Main concern was difficulty breathing w/ mask and concern re: balance w/ seated EOM trunk/core strengthening. Discussed progression to body weight bearing/strengthening based on comfort/balance progression. Overall, good session. Sandeep would likely benefit from skilled outpatient OT to address functional independence, right shoulder/ elbow weakness, bilateral fur sorter strength weakness, and his ability to successfully participate in meaningful activities (e.g., deirdre, movie watching) and return to work. Further evaluation of visual perceptual skills is recommended; need to determine if current level is baseline. Home Exercise Program 07/03/22 = Reviewed HEP. Provided w/ TB#4 for personal home use; 2 knots were made on TB to assist w/ hand positioning. Instructed to complete 2 sets of 10 repetitions. Instructed in proper wrist positioning ( neutral wrist position). - Plan Therapy Recommendations Continue with Current Program, Advance per Rehabilitation Protocol
--- NOTE | 2022-07-10 13:35 | OT.OP.TRT ---
Visit Care Team Role Provider Type KIMI Robbins Family Provider Non-Staff Primary Care Provider Specialty: Nursing Address: [facility] [address], [address], [place], [address] Email: Attending Provider Referring Provider Specialty: Address: Phone: Fax: Email: Occupational Therapy Treatment Note OT Outpatient Treatment Note - Adult Start: 06/15/22 09:31 Freq: Status: Active Protocol: Document 07/10/22 13:28 AMS (Rec: 07/10/22 13:34 AMS [id number]) OT Outpatient Adult Treatment Note Session Time Visit Start Time 10:30 Visit Stop Time 11:15 Total Visit Minutes 45 Visit Information Plan of Care Dates 06/13/22 - 07/25/22 Insurance Information [employer]; changing to [facility] beginning of July Setting Treatment Setting Outpatient Care Visit Type Note Type Treatment Note General Information General Information Sandeep is a 31 year-old right hand dominant male 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 Medical history significant for intracranial hemorrhage, critical polytrauma, CSF leak, DVT (R LE), recurrent major depressive disorder and social anxiety disorder. Patient is taking Baclofen, 20 mg 3 x daily. Report of L AFO; (-) wearing AFO; use of walker w/ ambulation/gait w/ c/o dizzness w/ s-s. CGA x 1 s-s observed; SBA x 1 s-s w/ decreased safety (w/ pulling up on FWW versus pushing up from armrests). Denial of fall (s) since d/c to home. Sandeep was accompanied by his Mother, Malka, and Father, Glenn, to initial evaluation and treatment. Intake paperwork was completed by Glnen, Sandeep's Father. Sandeep verbally denied UE pain/discomfort. Indication of 2 out of 10 relative to PEG tube placement post- sleeping; 3 out of 10 relative to R big toe, 2 out of 10 L ankle, 1 out of 10 top of L foot. QuickDASH UE Outcome Measure Score = 50.0; QuickDASH Work Module Score = 75.0. 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 Sandeep resides in a 3- bedroom home with his family. - Subjective Identification Type Name Identification Reconciled With Medical Record Observations Sandeep was accompanied by his Father, Glenn, to the entire treatment session. Denied active use of theraband in the home for UB strengthening. Report of doing walking and balance exercises for PT. Report of hesitancy and resistance to see tirado. Parents: Mother = Malka; Father = Glenn Patient Expectation/Goals Return to full-time work at [employer]; independence w/ IADLS/BADLs - Objective Objective Measurements Please refer to below for progress towards meeting established OT goals: Short Term Goals 1. Sandeep will present with increased right upper extremity strength which will support return to work: 1a. 5/5 MMT R sh flexion. 1b. 5/5 MMT R sh extension. 1c. 5/5 MMT R sh abduction. 1d. 5/5 MMT R elbow flexion. 1e. 5/5 MMT R elbow extension . Chcf Goals 1. Sandeep will be modified independent with execution of home exercise program utilizing provided written and visual instructions from therapist with support of his family. 2. Based on self-report, Sandeep will be manage dressing set- up on a daily basis (x 7 days) utilizing modifications/ supports as needed with modified independence. 3. Based on self-report, Sandeep will be executing bathing with modified independence ( utilizing AE/modifications/ supports as needed). - Exercises 5 Descriptor Seated trunk/core strengthening. Trunk flex/ext. 2 x 10. Trunk flex/ext; 1 LE lifted off the floor. 2 x 10. 4 Descriptor UE strengthening. TB use seated. TB #4. Pec press. 2 x 10. TB #4. Bilateral sh ext. 2 x 10. TB #4. Bilateral seated row. 2 x 10. 3 Descriptor Weighted ball. UB strengthening. Sh press. 2 x 10. Tap to each side away from base of support. 1 x 10. 2 Descriptor UB strengthening. Body weight. Table push-ups. 2 x 15 repetitions. 1 Descriptor UEB. Seated. x 10 minutes. - Assessment Assessment of Improvement Provision of personal face shield to use in individual treatment rooms; report of hesitancy towards seeing tirado. Discussed w/ patient and father re: task analysis and breathing down activity into smaller component parts to support success; denial of discomfort with washing hair. Use of comb a couple of times w/ Father's support. Increasing activity completion in the home; reported retrieval of foods/drinks from refrigerator on own supporting functional independence and overall, activity tolerance. Explored alternatives to TB given decreased use; will trial TT or countertop push-ups w/ Father's support. Sandeep does have access to weighted ball ( bowling ball) to support heavy UE lifting. Decreased coordination of breath w/ lifting; max cueing to support breathing w/ exertion. Overall, good session. Sandeep would likely benefit from skilled outpatient OT to address functional independence, right shoulder/ elbow weakness, bilateral white sourer strength weakness, and his ability to successfully participate in meaningful activities (e.g., deirdre, movie watching) and return to work. Further evaluation of visual perceptual skills is recommended; need to determine if current level is baseline. Home Exercise Program 07/03/22 = Reviewed HEP. Provided w/ TB#4 for personal home use; 2 knots were made on TB to assist w/ hand positioning. Instructed to complete 2 sets of 10 repetitions. Instructed in proper wrist positioning ( neutral wrist position). - Plan Therapy Recommendations Continue with Current Program, Advance per Rehabilitation Protocol
--- NOTE | 2022-07-17 15:30 | OT.OP.TRT ---
Visit Care Team Role Provider Type KIMI Robbins Family Provider Non-Staff Primary Care Provider Specialty: Nursing Address: [facility] [address], [address], [place], [address] Email: Attending Provider Referring Provider Specialty: Address: Phone: Fax: Email: Occupational Therapy Treatment Note OT Outpatient Treatment Note - Adult Start: 06/15/22 09:31 Freq: Status: Active Protocol: Document 07/17/22 15:30 AMS (Rec: 07/18/22 08:37 AMS [id number]) OT Outpatient Adult Treatment Note Session Time Visit Start Time 10:30 Visit Stop Time 11:15 Total Visit Minutes 45 Visit Information Plan of Care Dates 06/13/22 - 07/25/22 Insurance Information A[employer]; changing to [facility] beginning of July Setting Treatment Setting Outpatient Care Visit Type Note Type Treatment Note General Information General Information Sandeep is a 31 year-old right hand dominant male 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 Medical history significant for intracranial hemorrhage, critical polytrauma, CSF leak, DVT (R LE), recurrent major depressive disorder and social anxiety disorder. Patient is taking Baclofen, 20 mg 3 x daily. Report of L AFO; (-) wearing AFO; use of walker w/ ambulation/gait w/ c/o dizzness w/ s-s. CGA x 1 s-s observed; SBA x 1 s-s w/ decreased safety (w/ pulling up on FWW versus pushing up from armrests). Denial of fall (s) since d/c to home. Sandeep was accompanied by his Mother, Malka, and Father, Glenn, to initial evaluation and treatment. Intake paperwork was completed by Glenn, Sandeep's Father. Sandeep verbally denied UE pain/discomfort. Indication of 2 out of 10 relative to PEG tube placement post- sleeping; 3 out of 10 relative to R big toe, 2 out of 10 L ankle, 1 out of 10 top of L foot. QuickDASH UE Outcome Measure Score = 50.0; QuickDASH Work Module Score = 75.0. 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 Sandeep resides in a 3- bedroom home with his family. - Subjective Identification Type Name Identification Reconciled With Medical Record Observations Sandeep was accompanied by his Father, Glenn, to the entire treatment session. Report of family recently downsizing from larger home to smaller home w/ boxes impacting Sandeep's ability to navigate within bedroom to locate clothing items for the day; report of Sandeep not currently having a dresser w/ clothing items stacked. Report of Mother, Malka, assisting with bathing (washing and drying of back and intermittently assisting w / quality of hair washing). Report of sitting down to complete distal LB dressing and to start w/ donning of pants/undergarments. Report of Father/Mother assisting w/ hygiene post-BM every trial d/ t constipation on Sandeep's concern of bleeding. Sandeep does use Miralax intermittently. He has a BM 5 out of 7 days per week per Father. Sandeep denied fall recovery training w/ PT as of yet. Parents: Mother = Malka; Father = Glenn Patient Expectation/Goals Return to full-time work at [employer]; independence w/ IADLS/BADLs - Objective Objective Measurements Please refer to below for progress towards meeting established OT goals: Short Term Goals 1. Sandeep will present with increased right upper extremity strength which will support return to work: 1a. 5/5 MMT R sh flexion. 1b. 5/5 MMT R sh extension. 1c. 5/5 MMT R sh abduction. 1d. 5/5 MMT R elbow flexion. 1e. 5/5 MMT R elbow extension . Manometer Technician Goals 1. Sandeep will be modified independent with execution of home exercise program utilizing provided written and visual instructions from therapist with support of his family. 2. Based on self-report, Sandeep will be manage dressing set- up on a daily basis (x 7 days) utilizing modifications/ supports as needed with modified independence. 3. Based on self-report, Sandeep will be executing bathing with modified independence ( utilizing AE/modifications/ supports as needed). - Treatment 1 Descriptor Self-care discussion/education . Exercises 5 Descriptor Seated trunk/core strengthening. Trunk flex/ext. 2 x 10. Trunk flex/ext; 1 LE lifted off the floor. 2 x 10. 3 Descriptor Weighted ball. UB strengthening. Sh press. 2 x 10. Tap to each side away from base of support. 1 x 10. 2 Descriptor UB strengthening. Body weight. Modified push-ups (kneeling); 1 x 10. 1 Descriptor UEB. Seated. x 10 minutes. - Assessment Assessment of Improvement (+) successful hair cut at independent electric wheelchair repairer. (+) cutting of fingernails without assist; has not tried cutting toenails. Decreased coordination of breath w/ exertion. Decreased functional independence; discussed modifications/AE to support functional independence w/ bathing/post-bathing w/ drying . Unable to touch hands at mid back (1 arm in flex other in ext); thus, modified hand towel washing/drying technique versus bath robe versus long handled sponge. Recommended cont use of shower chair given no grab bars and continued concern re: balance particularly in the evenings. Decreased carry-over of TB or TT push-ups; thus, rec modified push-ups post- practicing of fall recovery and transitioning to floor level w/ PT. Decreased engagement in deirdre. Overall, good session. Sandeep would likely benefit from skilled outpatient OT to address functional independence, right shoulder/ elbow weakness, bilateral material controller strength weakness, and his ability to successfully participate in meaningful activities (e.g., deirdre, movie watching) and return to work. Further evaluation of visual perceptual skills is recommended; need to determine if current level is baseline. Home Exercise Program 07/18/22 = Discussion of use of long handled sponge for washing of back versus use of hand towel modified for washing of back, robe (for assisting w/ drying post- bathing), shower stool (given no grab bars and cont concern w/ balance). Recommended working w/ PT on transition to floor and floor recovery if concern re: balance w/ modified push-ups. 07/03/22 = Reviewed HEP. Provided w/ TB#4 for personal home use; 2 knots were made on TB to assist w/ hand positioning. Instructed to complete 2 sets of 10 repetitions. Instructed in proper wrist positioning ( neutral wrist position). - Plan Therapy Recommendations Continue with Current Program, Advance per Rehabilitation Protocol
--- NOTE | 2022-07-24 11:59 | OT.OPPN ---
Current Diagnoses Weakness (07/24/22) Unspecified intracranial injury with loss of consciousness status unknown, initial encounter (07/24/22) OT Progress Note OT Outpatient Treatment Note - Adult Start: 06/15/22 09:31 Freq: Status: Active Protocol: Document 07/24/22 11:42 AMS (Rec: 07/24/22 11:58 AMS [id number]) OT Outpatient Adult Treatment Note Session Time Visit Start Time 10:30 Visit Stop Time 11:15 Total Visit Minutes 45 Visit Information Plan of Care Dates 07/24/22 - 09/04/22 Insurance Information [employer]; changing to [facility] beginning of July Setting Treatment Setting Outpatient Care Visit Type Note Type Progress Note General Information General Information Sandeep is a 31 year-old right hand dominant male 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 Medical history significant for intracranial hemorrhage, critical polytrauma, CSF leak, DVT (R LE), recurrent major depressive disorder and social anxiety disorder. Patient is taking Baclofen, 20 mg 3 x daily. Report of L AFO; (-) wearing AFO; use of walker w/ ambulation/gait w/ c/o dizzness w/ s-s. CGA x 1 s-s observed; SBA x 1 s-s w/ decreased safety (w/ pulling up on FWW versus pushing up from armrests). Denial of fall (s) since d/c to home. Sandeep was accompanied by his Mother, Malka, and Father, Glenn, to initial evaluation and treatment. Intake paperwork was completed by Glenn, Sandeep's Father. Sandeep verbally denied UE pain/discomfort. Indication of 2 out of 10 relative to PEG tube placement post- sleeping; 3 out of 10 relative to R big toe, 2 out of 10 L ankle, 1 out of 10 top of L foot. QuickDASH UE Outcome Measure Score = 50.0; QuickDASH Work Module Score = 75.0. 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 Sandeep resides in a 3- bedroom home with his family. - Subjective Identification Type Name Identification Reconciled With Medical Record Observations Sandeep was accompanied by his Father, Glenn, to the entire treatment session. Report of organizing approx half of his room; report of use of memory book and managing meds (with parents monitoring). Report of picking up and retrieving dirty laundry (no longer being assisted by Mother, Malka); report of going to get an alarm clock for the room given that Sandeep is still having his parents waking him up. 07/17/22 = Report of Mother, Malka, assisting with bathing (washing and drying of back and intermittently assisting w / quality of hair washing). Report of sitting down to complete distal LB dressing and to start w/ donning of pants/undergarments. Report of Father/Mother assisting w/ hygiene post-BM every trial d/ t constipation on Sandeep's concern of bleeding. Sandeep does use Miralax intermittently. He has a BM 5 out of 7 days per week per Father. Sandeep denied fall recovery training w/ PT as of yet. Denial of executing of floor push-ups at knee level. Denial of return to deirdre. Parents: Mother = Malka; Father = Glenn Patient Expectation/Goals Return to full-time work at [employer]; independence w/ IADLS/BADLs - Objective Objective Measurements Please refer to below for progress towards meeting established OT goals: Short Term Goals GOALS MET Sandeep will present with increased right upper extremity strength which will support return to work: 1a. 5/5 MMT R sh flexion. * MET 07/24/22 1b. 5/5 MMT R sh extension. * MET 07/24/22 1c. 5/5 MMT R sh abduction. * MET 07/24/22 1d. 5/5 MMT R elbow flexion. *MET 07/24/22 1e. 5/5 MMT R elbow extension . MET 07/24/22 Shelter Goals 1. Sandeep will be modified independent with execution of home exercise program utilizing provided written and visual instructions from therapist with support of his family. 2. Based on self-report, Sandeep will be manage dressing set- up on a daily basis (x 7 days) utilizing modifications/ supports as needed with modified independence. 07/24/22 = family is organizing bedroom currently 3. Based on self-report, Sandeep will be executing bathing with modified independence ( utilizing AE/modifications/ supports as needed). 07/24/22 = Sandeep is using shower chair; parents are standing by - Treatment 1 Descriptor Self-care discussion/education . Exercises 5 Descriptor Seated trunk/core strengthening. Trunk flex/ext. 2 x 10. 10# weight. Trunk rotation w/ slight trunk extension. 10# weight. 3 Descriptor Sh press. 10# weight. 2 x 10. 2 Descriptor UB strengthening. Body weight. Modified push-ups (kneeling); 2 x 10. 1 Descriptor UEB. Seated. x 10 minutes. - Assessment Assessment of Improvement Sandeep has made some success w/ outpatient OT since time of initial evaluation. He has demonstrated gains relative to UE strength; he met all short term goals in this area. He has also demonstrated some gains w/ functional independence and tolerance for functional tasks that were triggering for him. For instance, he has started to manage his own dirty laundry ( as far as picking up) and is retrieving his own food and drinks from the refrigerator. Sandeep is currently organizing his room with his parents support (given that family recently relocated to a smaller home) which will hopefully support waking up of self w/ use of new alarm and retrieving own clothes/ clothing set-up in the mornings. Therapist has completed some education re: ADL modifications/AE use. However, he continues to require his parents' support w / some ADLs d/t cognitive/ memory, balance concerns. Sandeep has not been compliant w/ UE strengthening/trunk and core strengthening exercises. Thus, recommend treatment focuses on maximizing functional independence and engagement in meaningful activities. Sandeep would likely cont benefit from skilled outpatient OT to address functional independence and his ability to successfully participate in meaningful activities (e.g., deirdre, movie watching) and return to work. Home Exercise Program 07/18/22 = Discussion of use of long handled sponge for washing of back versus use of hand towel modified for washing of back, robe (for assisting w/ drying post- bathing), shower stool (given no grab bars and cont concern w/ balance). Recommended working w/ PT on transition to floor and floor recovery if concern re: balance w/ modified push-ups. 07/03/22 = Reviewed HEP. Provided w/ TB#4 for personal home use; 2 knots were made on TB to assist w/ hand positioning. Instructed to complete 2 sets of 10 repetitions. Instructed in proper wrist positioning ( neutral wrist position). - Plan Therapy Recommendations Continue with Current Program, Advance per Rehabilitation Protocol Comment 6 weeks Frequency of Treatment Once a Week Therapeutic Contents Active Range of Motion, Adaptive Equipment Education, Client Education,Cognitive Skills Development,Functional Activities,Home Exercise Program,Joint Protection, Manual Therapy,Education, Neurodevelopment Treatment, Neuromuscular Re-Education, Self-Care,Stretching/ Flexibility Activities, Therapeutic Activities, Therapeutic Exercises If you are in agreement with this Plan of Care, please return a signed and dated copy. I have reviewed this Plan of Care and certify that the skilled therapy services above are required to meet the patient?s needs. Physician Signature Date Printed Name and Credentials Clinical Instructor Signature Printed Name and Credentials
--- NOTE | 2022-07-31 14:26 | OT.OP.TRT ---
Visit Care Team Role Provider Type KIMI Robbins Family Provider Non-Staff Primary Care Provider Specialty: Nursing Address: [facility] [address], [address], [place], [address] Email: Attending Provider Referring Provider Specialty: Address: Phone: Fax: Email: Occupational Therapy Treatment Note OT Outpatient Treatment Note - Adult Start: 06/15/22 09:31 Freq: Status: Active Protocol: Document 07/31/22 14:18 AMS (Rec: 07/31/22 14:26 AMS [id number]) OT Outpatient Adult Treatment Note Session Time Visit Start Time 10:45 Visit Stop Time 11:30 Total Visit Minutes 45 Visit Information Plan of Care Dates 07/24/22 - 09/04/22 Insurance Information [employer]; changing to [facility] beginning of July Setting Treatment Setting Outpatient Care Visit Type Note Type Treatment Note General Information General Information Sandeep is a 31 year-old right hand dominant male 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 Medical history significant for intracranial hemorrhage, critical polytrauma, CSF leak, DVT (R LE), recurrent major depressive disorder and social anxiety disorder. Patient is taking Baclofen, 20 mg 3 x daily. Report of L AFO; (-) wearing AFO; use of walker w/ ambulation/gait w/ c/o dizzness w/ s-s. CGA x 1 s-s observed; SBA x 1 s-s w/ decreased safety (w/ pulling up on FWW versus pushing up from armrests). Denial of fall (s) since d/c to home. Sandeep was accompanied by his Mother, Malka, and Father, Glenn, to initial evaluation and treatment. Intake paperwork was completed by Glenn, Sandeep's Father. Sandeep verbally denied UE pain/discomfort. Indication of 2 out of 10 relative to PEG tube placement post- sleeping; 3 out of 10 relative to R big toe, 2 out of 10 L ankle, 1 out of 10 top of L foot. QuickDASH UE Outcome Measure Score = 50.0; QuickDASH Work Module Score = 75.0. 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 Sandeep resides in a 3- bedroom home with his family. - Subjective Identification Type Name Identification Reconciled With Medical Record Observations Sandeep was accompanied by his Father, Glenn, to the entire treatment session. Sandeep reported that he still needs to clean up his room more to permit ease of mobility within the room and to support retrieval of personal clothing items. Sandeep reported playing Fallout approx 30 minutes on own; report of removal of all mods and starting at the beginning. No difficulties reported w/ use of remote controller; report of difficulties 'remembering how to make progress within the game'; some difficulties reported w/ sustained attention and ability to complete tasks. 07/17/22 = Report of Mother, Malka, assisting with bathing (washing and drying of back and intermittently assisting w / quality of hair washing). Report of sitting down to complete distal LB dressing and to start w/ donning of pants/undergarments. Report of Father/Mother assisting w/ hygiene post-BM every trial d/ t constipation on Sandeep's concern of bleeding. Sandeep does use Miralax intermittently. He has a BM 5 out of 7 days per week per Father. Sandeep denied fall recovery training w/ PT as of yet. Denial of executing of floor push-ups at knee level. Denial of return to deirdre. Parents: Mother = Malka; Father = Glenn Patient Expectation/Goals Return to full-time work at [employer]; independence w/ IADLS/BADLs - Objective Objective Measurements Please refer to below for progress towards meeting established OT goals: Short Term Goals GOALS MET Sandeep will present with increased right upper extremity strength which will support return to work: 1a. 5/5 MMT R sh flexion. * MET 07/24/22 1b. 5/5 MMT R sh extension. * MET 07/24/22 1c. 5/5 MMT R sh abduction. * MET 07/24/22 1d. 5/5 MMT R elbow flexion. *MET 07/24/22 1e. 5/5 MMT R elbow extension . MET 07/24/22 Correction Goals 1. Sandeep will be modified independent with execution of home exercise program utilizing provided written and visual instructions from therapist with support of his family. 2. Based on self-report, Sandeep will be manage dressing set- up on a daily basis (x 7 days) utilizing modifications/ supports as needed with modified independence. 07/24/22 = family is organizing bedroom currently 3. Based on self-report, Sandeep will be executing bathing with modified independence ( utilizing AE/modifications/ supports as needed). 07/24/22 = Sandeep is using shower chair; parents are standing by - Treatment 1 Descriptor Self-care discussion/education . Exercises 5 Descriptor Posture. Trunk/core strengthening. Orientation to midline. 75 cm therapy ball use w/ contralateral UE/LE movements. 75 cm therapy ball use w/ eye- hand coordination unilaterally /bilaterally. 3 Descriptor Sh press. 10# weight. 2 x 10. 2 Descriptor UB strengthening. Body weight. Modified push-ups (kneeling); 2 x 10. 1 Descriptor UEB. Seated. x 10 minutes. - Assessment Assessment of Improvement Report of increased mobility within the home and the community without mobility AE per Father. Continued need to organize room; report of difficulties w/ sustained attention to support task completion. Increased engagement in deirdre; reportedly played Fallout on personal deirdre system with no reported difficulties utilizing remote controller. Good eye-hand coordination/ reaction time noted w/ wall/ tennis ball floor work while seated on 75 cm therapy ball. First time introduction to therapy/yoga ball; did quite well overall with maintaining sitting balance. Unsteadiness and decreased confidence noted primarily w/ any amount of trunk extension while seated on therapy/yoga ball. Good attention/ability to coordinate contralateral UE and LE while seated on therapy ball. Overall, good session. Sandeep would likely cont benefit from skilled outpatient OT to address functional independence and his ability to successfully participate in meaningful activities (e.g., deirdre, movie watching) and return to work. Home Exercise Program 07/18/22 = Discussion of use of long handled sponge for washing of back versus use of hand towel modified for washing of back, robe (for assisting w/ drying post- bathing), shower stool (given no grab bars and cont concern w/ balance). Recommended working w/ PT on transition to floor and floor recovery if concern re: balance w/ modified push-ups. 07/03/22 = Reviewed HEP. Provided w/ TB#4 for personal home use; 2 knots were made on TB to assist w/ hand positioning. Instructed to complete 2 sets of 10 repetitions. Instructed in proper wrist positioning ( neutral wrist position). - Plan Therapy Recommendations Continue with Current Program, Advance per Rehabilitation Protocol
--- NOTE | 2022-08-07 14:33 | OT.OP.TRT ---
Visit Care Team Role Provider Type KIMI Robbins Family Provider Non-Staff Primary Care Provider Specialty: Nursing Address: [facility] [address], [address], [place], [address] Email: Attending Provider Referring Provider Specialty: Address: Phone: Fax: Email: Occupational Therapy Treatment Note OT Outpatient Treatment Note - Adult Start: 06/15/22 09:31 Freq: Status: Active Protocol: Document 08/07/22 14:24 AMS (Rec: 08/07/22 14:33 AMS [id number]) OT Outpatient Adult Treatment Note Session Time Visit Start Time 10:40 Visit Stop Time 11:30 Total Visit Minutes 50 Visit Information Plan of Care Dates 07/24/22 - 09/04/22 Insurance Information [employer]; changing to [facility], [facility] beginning of July Setting Treatment Setting Outpatient Care Visit Type Note Type Treatment Note General Information General Information Sandeep is a 31 year-old right hand dominant male 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 Medical history significant for intracranial hemorrhage, critical polytrauma, CSF leak, DVT (R LE), recurrent major depressive disorder and social anxiety disorder. Patient is taking Baclofen, 20 mg 3 x daily. Report of L AFO; (-) wearing AFO; use of walker w/ ambulation/gait w/ c/o dizzness w/ s-s. CGA x 1 s-s observed; SBA x 1 s-s w/ decreased safety (w/ pulling up on FWW versus pushing up from armrests). Denial of fall (s) since d/c to home. Sandeep was accompanied by his Mother, Malka, and Father, Glenn, to initial evaluation and treatment. Intake paperwork was completed by Glenn, Sandeep's Father. Sandeep verbally denied UE pain/discomfort. Indication of 2 out of 10 relative to PEG tube placement post- sleeping; 3 out of 10 relative to R big toe, 2 out of 10 L ankle, 1 out of 10 top of L foot. QuickDASH UE Outcome Measure Score = 50.0; QuickDASH Work Module Score = 75.0. 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 Sandeep resides in a 3- bedroom home with his family. - Subjective Identification Type Name Identification Reconciled With Medical Record Observations Sandeep was accompanied by his Father, Glenn, to the entire treatment session. Sandeep reported that he still needs to clean up his room. He did get an alarm but he still needs to be shown on how to set the time/use it. Per Sandeep and Glenn, Sandeep needs help with identifying the time needed to be set with microwave use; parents are still assisting with with meal prep. 07/17/22 = Report of Mother, Malka, assisting with bathing (washing and drying of back and intermittently assisting w / quality of hair washing). Report of sitting down to complete distal LB dressing and to start w/ donning of pants/undergarments. Report of Father/Mother assisting w/ hygiene post-BM every trial d/ t constipation on Sandeep's concern of bleeding. Sandeep does use Miralax intermittently. He has a BM 5 out of 7 days per week per Father. Sandeep denied fall recovery training w/ PT as of yet. Denial of executing of floor push-ups at knee level. Denial of return to deirdre. Parents: Mother = Malka; Father = Glenn Patient Expectation/Goals Return to full-time work at [employer]; independence w/ IADLS/BADLs - Objective Objective Measurements Please refer to below for progress towards meeting established OT goals: Short Term Goals GOALS MET Sandeep will present with increased right upper extremity strength which will support return to work: 1a. 5/5 MMT R sh flexion. * MET 07/24/22 1b. 5/5 MMT R sh extension. * MET 07/24/22 1c. 5/5 MMT R sh abduction. * MET 07/24/22 1d. 5/5 MMT R elbow flexion. *MET 07/24/22 1e. 5/5 MMT R elbow extension . MET 07/24/22 Directional Drill Operator Goals 1. Sandeep will be modified independent with execution of home exercise program utilizing provided written and visual instructions from therapist with support of his family. 2. Based on self-report, Sandeep will be manage dressing set- up on a daily basis (x 7 days) utilizing modifications/ supports as needed with modified independence. 07/24/22 = family is organizing bedroom currently 3. Based on self-report, Sandeep will be executing bathing with modified independence ( utilizing AE/modifications/ supports as needed). 07/24/22 = Sandeep is using shower chair; parents are standing by - Treatment 1 Descriptor Self-care discussion/education . Exercises 6 Descriptor Weighted spherical ball 2 x 10 . Overhand. 5.5# 2 x 10. Overhead. 6.6# 2 x 10. 5 Descriptor Posture. Trunk/core strengthening. Orientation to midline. 75 cm therapy ball use w/ contralateral UE/LE movements. 75 cm therapy ball use w/ eye- hand coordination unilaterally /bilaterally. 3 Descriptor Sh press. 10# weight. 2 x 10. 1 Descriptor UEB. Seated. x 10 minutes. - Assessment Assessment of Improvement Presented to treatment session w/ use of standard FWW; intermittent use of FWW. Continued need to organize room; report of family investment in alarm for him to use in the home (however, needs instruction on setting time), assist needed with identifying time needed to be set on the microwave for meal prep, assist for cooking/meal prep, and frequent use of urinal in the home at night time/use of FWW during the night. Discussed safety w/ light source/use of FWW and encouragement to use bathroom vs urinal in the home. Improving confidence w/ 75 cm yoga ball; discussed having clinic assisting w/ inflating yoga ball recently invested in if needed. Overall, good session. Sandeep would likely cont benefit from skilled outpatient OT to address functional independence and his ability to successfully participate in meaningful activities (e.g., deirdre, movie watching) and return to work. Home Exercise Program 08/07/22= Discussion of deirdre for 30 minutes 1 to 2 times per week; recommended considering earlier on in the day. Recommended using bathroom versus catheter. 07/18/22 = Discussion of use of long handled sponge for washing of back versus use of hand towel modified for washing of back, robe (for assisting w/ drying post- bathing), shower stool (given no grab bars and cont concern w/ balance). Recommended working w/ PT on transition to floor and floor recovery if concern re: balance w/ modified push-ups. 07/03/22 = Reviewed HEP. Provided w/ TB#4 for personal home use; 2 knots were made on TB to assist w/ hand positioning. Instructed to complete 2 sets of 10 repetitions. Instructed in proper wrist positioning ( neutral wrist position). - Plan Therapy Recommendations Continue with Current Program, Advance per Rehabilitation Protocol
--- NOTE | 2022-08-14 14:29 | OT.OP.TRT ---
Visit Care Team Role Provider Type KIMI Robbins Family Provider Non-Staff Primary Care Provider Specialty: Nursing Address: [facility] [address], [address], [place], [address] Email: Attending Provider Referring Provider Specialty: Address: Phone: Fax: Email: Occupational Therapy Treatment Note OT Outpatient Treatment Note - Adult Start: 06/15/22 09:31 Freq: Status: Active Protocol: Document 08/14/22 14:19 AMS (Rec: 08/14/22 14:28 AMS [id number]) OT Outpatient Adult Treatment Note Session Time Visit Start Time 10:45 Visit Stop Time 11:30 Total Visit Minutes 45 Visit Information Plan of Care Dates 07/24/22 - 09/04/22 Insurance Information [employer]; changing to [facility] beginning of July Setting Treatment Setting Outpatient Care Visit Type Note Type Treatment Note General Information General Information Sandeep is a 31 year-old right hand dominant male 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 Medical history significant for intracranial hemorrhage, critical polytrauma, CSF leak, DVT (R LE), recurrent major depressive disorder and social anxiety disorder. Patient is taking Baclofen, 20 mg 3 x daily. Report of L AFO; (-) wearing AFO; use of walker w/ ambulation/gait w/ c/o dizzness w/ s-s. CGA x 1 s-s observed; SBA x 1 s-s w/ decreased safety (w/ pulling up on FWW versus pushing up from armrests). Denial of fall (s) since d/c to home. Sandeep was accompanied by his Mother, Malka, and Father, Glenn, to initial evaluation and treatment. Intake paperwork was completed by Glenn, Sandeep's Father. Sandeep verbally denied UE pain/discomfort. Indication of 2 out of 10 relative to PEG tube placement post- sleeping; 3 out of 10 relative to R big toe, 2 out of 10 L ankle, 1 out of 10 top of L foot. QuickDASH UE Outcome Measure Score = 50.0; QuickDASH Work Module Score = 75.0. 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 Sandeep resides in a 3- bedroom home with his family. - Subjective Identification Type Name Identification Reconciled With Medical Record Observations Sandeep was accompanied by his Father, Glenn, to the entire treatment session. Sandeep reported that he still needs to clean up his room. Parents are still assisting with with meal prep, waking him up in the morning, assisting with time management, and being close by w/ available assist w / bathing transfer(s). Father, Glenn, reports placing shower chair w/ bath pre-bathing for Sandeep. 07/17/22 = Report of Mother, Malka, assisting with bathing (washing and drying of back and intermittently assisting w / quality of hair washing). Report of sitting down to complete distal LB dressing and to start w/ donning of pants/undergarments. Report of Father/Mother assisting w/ hygiene post-BM every trial d/ t constipation on Sandeep's concern of bleeding. Sandeep does use Miralax intermittently. He has a BM 5 out of 7 days per week per Father. Sandeep denied fall recovery training w/ PT as of yet. Denial of executing of floor push-ups at knee level. Denial of return to deirdre. Parents: Mother = Malka; Father = Glenn Patient Expectation/Goals Return to full-time work at [employer]; independence w/ IADLS/BADLs - Objective Objective Measurements Please refer to below for progress towards meeting established OT goals: Short Term Goals GOALS MET Sandeep will present with increased right upper extremity strength which will support return to work: 1a. 5/5 MMT R sh flexion. * MET 07/24/22 1b. 5/5 MMT R sh extension. * MET 07/24/22 1c. 5/5 MMT R sh abduction. * MET 07/24/22 1d. 5/5 MMT R elbow flexion. *MET 07/24/22 1e. 5/5 MMT R elbow extension . MET 07/24/22 Mobile Security Architect Goals 1. Sandeep will be modified independent with execution of home exercise program utilizing provided written and visual instructions from therapist with support of his family. 2. Based on self-report, Sandeep will be executing bathing with modified independence ( utilizing AE/modifications/ supports as needed). 08/14/22 = Sandeep is using shower chair w/ back; bathing self; intermittent phys assist provided for safe t/f GOALS MET Sandeep will be manage dressing set-up on a daily basis (x 7 days) utilizing modifications/ supports as needed with modified independence. *MET - Treatment 1 Descriptor Self-care discussion/education . Exercises 6 Descriptor Weighted spherical ball 2 x 10 . Overhand. 5.5# 2 x 10. Overhead. 6.6# 2 x 10. 5 Descriptor Posture. Trunk/core strengthening. Orientation to midline. 75 cm therapy ball use w/ contralateral UE/LE movements. Alt marching. Alt kicking. x 20 reps each. 75 cm therapy ball use w/ eye- hand coordination unilaterally /bilaterally. 1 Descriptor UEB. Seated. x 10 minutes. - Assessment Assessment of Improvement Improving functional independence; completing dressing set-up independently based on Father's/self-report. Sandeep is getting all his clothes and items ready for bathing. Sandeep is also completing all bathing tasks w / mod independence; however, Father provides support w/ shower chair w/ back set-up and Mother or Father assist as needed w/ bath transfers (CGA to min phys assist). Sandeep is still needing support w/ meal prep, med management, and is using the urinal at night d/t sleep medication making him groggy. Sandeep was able to follow 3-step instructions w/ eye-hand coordination activity while seated on yoga ball; he required max verbal prompting /sequential motor planning assist w/ 4-step eye-hand coordination activity while seated on yoga ball. Improving confidence w/ 75 cm yoga ball ; cueing to support posture while seated and/or w/ trunk extension. Does well w/ rolling sh backwards cue to support posture. Overall, good session. Sandeep would likely cont benefit from skilled outpatient OT to address functional independence and his ability to successfully participate in meaningful activities (e.g., deirdre, movie watching) and return to work. Home Exercise Program 08/07/22= Discussion of deirdre for 30 minutes 1 to 2 times per week; recommended considering earlier on in the day. Recommended using bathroom versus catheter. 07/18/22 = Discussion of use of long handled sponge for washing of back versus use of hand towel modified for washing of back, robe (for assisting w/ drying post- bathing), shower stool (given no grab bars and cont concern w/ balance). Recommended working w/ PT on transition to floor and floor recovery if concern re: balance w/ modified push-ups. 07/03/22 = Reviewed HEP. Provided w/ TB#4 for personal home use; 2 knots were made on TB to assist w/ hand positioning. Instructed to complete 2 sets of 10 repetitions. Instructed in proper wrist positioning ( neutral wrist position). - Plan Therapy Recommendations Continue with Current Program, Advance per Rehabilitation Protocol
--- NOTE | 2022-08-24 14:47 | OT.OP.TRT ---
Visit Care Team Role Provider Type KIMI Robbins Family Provider Non-Staff Primary Care Provider Specialty: Nursing Address: [facility] [address], [address], [place], [address] Email: Attending Provider Referring Provider Specialty: Address: Phone: Fax: Email: Occupational Therapy Treatment Note OT Outpatient Treatment Note - Adult Start: 06/15/22 09:31 Freq: Status: Active Protocol: Document 08/24/22 14:37 AMS (Rec: 08/24/22 14:47 AMS [id number]) OT Outpatient Adult Treatment Note Session Time Visit Start Time 10:45 Visit Stop Time 11:30 Total Visit Minutes 45 Visit Information Plan of Care Dates 07/24/22 - 09/04/22 Insurance Information [employer]; changing to [facility] beginning of July Setting Treatment Setting Outpatient Care Visit Type Note Type Treatment Note General Information General Information Sandeep is a 31 year-old right hand dominant male 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 Medical history significant for intracranial hemorrhage, critical polytrauma, CSF leak, DVT (R LE), recurrent major depressive disorder and social anxiety disorder. Patient is taking Baclofen, 20 mg 3 x daily. Report of L AFO; (-) wearing AFO; use of walker w/ ambulation/gait w/ c/o dizzness w/ s-s. CGA x 1 s-s observed; SBA x 1 s-s w/ decreased safety (w/ pulling up on FWW versus pushing up from armrests). Denial of fall (s) since d/c to home. Sandeep was accompanied by his Mother, Malka, and Father, Glenn, to initial evaluation and treatment. Intake paperwork was completed by Glenn, Sandeep's Father. Sandeep verbally denied UE pain/discomfort. Indication of 2 out of 10 relative to PEG tube placement post- sleeping; 3 out of 10 relative to R big toe, 2 out of 10 L ankle, 1 out of 10 top of L foot. QuickDASH UE Outcome Measure Score = 50.0; QuickDASH Work Module Score = 75.0. 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 Sandeep resides in a 3- bedroom home with his family. - Subjective Identification Type Name Identification Reconciled With Medical Record Observations Sandeep was accompanied by his Father, Glenn, to the entire treatment session. Sandeep reported that he still needs to clean up his room. Sandeep reportedly played video games for an hour 3 x last week; he still needs cueing to wake up in the morning given that alarm clock has not been set- up. He does not wear a watch and uses his phone for time management. GROVE WORKER has started a journal with him; he has been using it to write down when he takes his meds. Per Father, the alarm function of his cell phone is not working. Thus, they need to take it to an [employer] store. Sandeep denied having a written location for all of his passwords; use of autopayment w/ current support from his parents with managing finances. 07/17/22 = Report of Mother, Malka, assisting with bathing (washing and drying of back and intermittently assisting w / quality of hair washing). Report of sitting down to complete distal LB dressing and to start w/ donning of pants/undergarments. Report of Father/Mother assisting w/ hygiene post-BM every trial d/ t constipation on Sandeep's concern of bleeding. Sandeep does use Miralax intermittently. He has a BM 5 out of 7 days per week per Father. Sandeep denied fall recovery training w/ PT as of yet. Denial of executing of floor push-ups at knee level. Denial of return to deirdre. Parents: Mother = Malka; Father = Glenn Patient Expectation/Goals Return to full-time work at [employer]; independence w/ IADLS/BADLs - Objective Objective Measurements Please refer to below for progress towards meeting established OT goals: Short Term Goals GOALS MET Sandeep will present with increased right upper extremity strength which will support return to work: 1a. 5/5 MMT R sh flexion. * MET 07/24/22 1b. 5/5 MMT R sh extension. * MET 07/24/22 1c. 5/5 MMT R sh abduction. * MET 07/24/22 1d. 5/5 MMT R elbow flexion. *MET 07/24/22 1e. 5/5 MMT R elbow extension . MET 07/24/22 Training Mgr Goals 1. Sandeep will be modified independent with execution of home exercise program utilizing provided written and visual instructions from therapist with support of his family. 2. Based on self-report, Sandeep will be executing bathing with modified independence ( utilizing AE/modifications/ supports as needed). 08/24/22 = Sandeep is using shower chair w/ back; bathing self; no phys assist needed w/ t/f; close SBA provided however at this time. GOALS MET Sandeep will be manage dressing set-up on a daily basis (x 7 days) utilizing modifications/ supports as needed with modified independence. *MET - Exercises 6 Descriptor Weighted spherical ball 2 x 10 . Overhand. 5.5# 2 x 10. Overhead. 6.6# 2 x 10. 5 Descriptor Posture. Trunk/core strengthening. Orientation to midline. 75 cm therapy ball use w/ contralateral UE/LE movements. Alt marching. Alt kicking. x 20 reps each. 75 cm therapy ball use w/ eye- hand coordination unilaterally /bilaterally. 2 Descriptor Squat machine modified push- ups. 37#. 2 x 10. 25#. 1 x 10. 1 Descriptor UEB. Seated. x 10 minutes. - Assessment Assessment of Improvement Improving active engagement in meaningful activities; Sandeep reported engaged in video game x 1 hour for 3 nights last week. Decreased assist needed w/ functional bath transfers, although, one of his parents are still close by for the transfer into and out of the tub. Report of use of journal for med management; discussed using a journal/note taking system for usernames and passwords. Currently still not using alarm clock and has been unable to successfully use alarm clock function on personal cellphone; family to bring cellphone to [employer] store to assist w/ problem solving. Overall, good session. One more appointment scheduled at this time; will need to determine if at baseline for ADL and/or meaningful activity participation and/or additional treatment is needed . Home Exercise Program 08/07/22= Discussion of deirdre for 30 minutes 1 to 2 times per week; recommended considering earlier on in the day. Recommended using bathroom versus catheter. 07/18/22 = Discussion of use of long handled sponge for washing of back versus use of hand towel modified for washing of back, robe (for assisting w/ drying post- bathing), shower stool (given no grab bars and cont concern w/ balance). Recommended working w/ PT on transition to floor and floor recovery if concern re: balance w/ modified push-ups. 07/03/22 = Reviewed HEP. Provided w/ TB#4 for personal home use; 2 knots were made on TB to assist w/ hand positioning. Instructed to complete 2 sets of 10 repetitions. Instructed in proper wrist positioning ( neutral wrist position). - Plan Therapy Recommendations Advance per Rehabilitation Protocol
--- NOTE | 2022-08-31 14:19 | OT.OPPN ---
Current Diagnoses Weakness (08/31/22) Unspecified intracranial injury with loss of consciousness status unknown, initial encounter (08/31/22) OT Progress Note OT Outpatient Treatment Note - Adult Start: 06/15/22 09:31 Freq: Status: Active Protocol: Document 08/31/22 14:00 AMS (Rec: 08/31/22 14:18 AMS [id number]) OT Outpatient Adult Treatment Note Session Time Visit Start Time 10:45 Visit Stop Time 11:30 Total Visit Minutes 45 Visit Information Plan of Care Dates 08/31/22 - 10/26/22 Insurance Information [employer]; changing to [facility] beginning of July Setting Treatment Setting Outpatient Care Visit Type Note Type Progress Note General Information General Information Sandeep is a 31 year-old right hand dominant male 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 Medical history significant for intracranial hemorrhage, critical polytrauma, CSF leak, DVT (R LE), recurrent major depressive disorder and social anxiety disorder. Patient is taking Baclofen, 20 mg 3 x daily. Report of L AFO; (-) wearing AFO; use of walker w/ ambulation/gait w/ c/o dizzness w/ s-s. CGA x 1 s-s observed; SBA x 1 s-s w/ decreased safety (w/ pulling up on FWW versus pushing up from armrests). Denial of fall (s) since d/c to home. Sandeep was accompanied by his Mother, Malka, and Father, Glenn, to initial evaluation and treatment. Intake paperwork was completed by Glenn, Sandeep's Father. Sandeep verbally denied UE pain/discomfort. Indication of 2 out of 10 relative to PEG tube placement post- sleeping; 3 out of 10 relative to R big toe, 2 out of 10 L ankle, 1 out of 10 top of L foot. QuickDASH UE Outcome Measure Score = 50.0; QuickDASH Work Module Score = 75.0. 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 Sandeep resides in a 3- bedroom home with his family. - Subjective Identification Type Name Identification Reconciled With Medical Record Observations Sandeep was accompanied by his Father, Glenn, to the entire treatment session. Report of writing down passwords/ usernames. Denial of any pain/ discomfort. (+) participation and playing of video games a couple hours; able to follow 2 -step directions w/ meal preparation. (+) safe use of microwave; denial of burning fingers/hands w/ retrieval of items from microwave. Report of not doing laundry at this time and/or washing dishes. Report of not yet bringing personal cell phone to [employer] store. 08/24/22 = Sandeep reported that he still needs to clean up his room. Sandeep reportedly played video games for an hour 3 x last week; he still needs cueing to wake up in the morning given that alarm clock has not been set-up. He does not wear a watch and uses his phone for time management. WASTE EXAMINER has started a journal with him; he has been using it to write down when he takes his meds. Per Father, the alarm function of his cell phone is not working. Thus, they need to take it to an [employer] store. Sandeep denied having a written location for all of his passwords; use of autopayment w/ current support from his parents with managing finances . 07/17/22 = Report of Mother, Malka, assisting with bathing (washing and drying of back and intermittently assisting w / quality of hair washing). Report of sitting down to complete distal LB dressing and to start w/ donning of pants/undergarments. Report of Father/Mother assisting w/ hygiene post-BM every trial d/ t constipation on Sandeep's concern of bleeding. Sandeep does use Miralax intermittently. He has a BM 5 out of 7 days per week per Father. Sandeep denied fall recovery training w/ PT as of yet. Denial of executing of floor push-ups at knee level. Denial of return to deirdre. Parents: Mother = Malka; Father = Glenn Patient Expectation/Goals Return to full-time work at [employer]; independence w/ IADLS/BADLs - Objective Objective Measurements Please refer to below for progress towards meeting established OT goals: Short Term Goals GOALS MET Sandeep will present with increased right upper extremity strength which will support return to work: 1a. 5/5 MMT R sh flexion. * MET 07/24/22 1b. 5/5 MMT R sh extension. * MET 07/24/22 1c. 5/5 MMT R sh abduction. * MET 07/24/22 1d. 5/5 MMT R elbow flexion. *MET 07/24/22 1e. 5/5 MMT R elbow extension . MET 07/24/22 Half-Way Goals 1. Sandeep will be modified independent with execution of home exercise program utilizing provided written and visual instructions from therapist with support of his family. 08/31/22 = 75% met 2. Based on self-report, Sandeep will be executing bathing with modified independence ( utilizing AE/modifications/ supports as needed). 08/31/22 = Sandeep is using shower chair w/ back; bathing self; no phys assist needed w/ t/f; close SBA provided however at this time. GOALS MET Sandeep will be manage dressing set-up on a daily basis (x 7 days) utilizing modifications/ supports as needed with modified independence. *MET - Exercises 8 Descriptor Motor planning of UEs. 7 Descriptor Trunk/core. Posture awareness. UE ROM. 6 Descriptor Weighted spherical ball 2 x 10 . Overhand. 5.5# 2 x 10. Overhead. 6.6# 2 x 10. 5 Descriptor Posture. Trunk/core strengthening. Orientation to midline. 75 cm therapy ball use w/ contralateral UE/LE movements. Alt marching. Alt kicking. x 20 reps each. 75 cm therapy ball use w/ eye- hand coordination unilaterally /bilaterally. 2 Descriptor Squat machine modified push- ups. 37#. 3 x 10. 1 Descriptor UEB. Seated. x 10 minutes. - Assessment Assessment of Improvement Over the last certification period, Sandeep has demonstrated some progress with functional independence and engagement in meaningful activities (e.g., such as deirdre). Sandeep is requiring less physical assistance w/ bathing and dressing set-up (e.g., clothing retrieval); he is starting to game several nights a week for a couple of hours and has recently ordered a few new books to read. Sandeep was receptive to writing down usernames and passwords as well given reported some difficulties with memory. Sandeep is reportedly following 2- step directions w/ meal preparation and has had no issues with safety relative to microwave use (letting item cool down prior to retrieval). Sandeep has not done laundry since hospitalization and has not returned to driving. Sandeep does present with minimal arm swing and impaired posture; some posturing of L > R hand w / wrist in flexed position was reported by Father. Initiated additional postural based exercises/focusing on stretches and supporting bilateral shoulder extension. Given that Sandeep is not at prior level of functional independence and concerns re: UE posturing, continued outpatient OT is recommended to address these areas. Home Exercise Program 08/31/22 = Rec doing 1 load of laundry. 08/24/22 = Rec writing down of usernames/passwords. 08/07/22= Discussion of deirdre for 30 minutes 1 to 2 times per week; recommended considering earlier on in the day. Recommended using bathroom versus catheter. 07/18/22 = Discussion of use of long handled sponge for washing of back versus use of hand towel modified for washing of back, robe (for assisting w/ drying post- bathing), shower stool (given no grab bars and cont concern w/ balance). Recommended working w/ PT on transition to floor and floor recovery if concern re: balance w/ modified push-ups. 07/03/22 = Reviewed HEP. Provided w/ TB#4 for personal home use; 2 knots were made on TB to assist w/ hand positioning. Instructed to complete 2 sets of 10 repetitions. Instructed in proper wrist positioning ( neutral wrist position). - Plan Therapy Recommendations Continue with Current Program, Advance per Rehabilitation Protocol Comment 8 weeks Frequency of Treatment Once a Week Therapeutic Contents Active Range of Motion, Adaptive Equipment Education, Client Education,Cognitive Skills Development,Functional Activities,Home Exercise Program,Joint Protection, Manual Therapy,Education, Neurodevelopment Treatment, Neuromuscular Re-Education, Self-Care,Stretching/ Flexibility Activities, Therapeutic Activities, Therapeutic Exercises,Sensory Re-education If you are in agreement with this Plan of Care, please return a signed and dated copy. I have reviewed this Plan of Care and certify that the skilled therapy services above are required to meet the patient?s needs. Physician Signature Date Printed Name and Credentials Clinical Instructor Signature Printed Name and Credentials
--- NOTE | 2022-09-07 13:52 | OT.OP.TRT ---
Visit Care Team Role Provider Type KIMI Robbins Family Provider Non-Staff Primary Care Provider Specialty: Nursing Address: [facility] [address], [address], [place], [address] Email: Attending Provider Referring Provider Specialty: Address: Phone: Fax: Email: Occupational Therapy Treatment Note OT Outpatient Treatment Note - Adult Start: 06/15/22 09:31 Freq: Status: Active Protocol: Document 09/07/22 13:28 AMS (Rec: 09/07/22 13:52 AMS [id number]) OT Outpatient Adult Treatment Note Session Time Visit Start Time 10:45 Visit Stop Time 11:30 Total Visit Minutes 45 Visit Information Plan of Care Dates 08/31/22 - 10/26/22 Insurance Information [employer]; changing to [facility] beginning of July Setting Treatment Setting Outpatient Care Visit Type Note Type Treatment Note General Information General Information Sandeep is a 31 year-old right hand dominant male 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 Medical history significant for intracranial hemorrhage, critical polytrauma, CSF leak, DVT (R LE), recurrent major depressive disorder and social anxiety disorder. Patient is taking Baclofen, 20 mg 3 x daily. Report of L AFO; (-) wearing AFO; use of walker w/ ambulation/gait w/ c/o dizzness w/ s-s. CGA x 1 s-s observed; SBA x 1 s-s w/ decreased safety (w/ pulling up on FWW versus pushing up from armrests). Denial of fall (s) since d/c to home. Sandeep was accompanied by his Mother, Malka, and Father, Glenn, to initial evaluation and treatment. Intake paperwork was completed by Glenn, Sandeep's Father. Sandeep verbally denied UE pain/discomfort. Indication of 2 out of 10 relative to PEG tube placement post- sleeping; 3 out of 10 relative to R big toe, 2 out of 10 L ankle, 1 out of 10 top of L foot. QuickDASH UE Outcome Measure Score = 50.0; QuickDASH Work Module Score = 75.0. 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 Sandeep resides in a 3- bedroom home with his family. - Subjective Identification Type Name Identification Reconciled With Medical Record Observations Sandeep was accompanied by his Father, Glenn, to the entire treatment session. (+) participation and playing of video games a couple hours. Report of not doing laundry at this time and/or washing dishes. Report of not yet bringing personal cell phone to [employer] store. Still needs alarm; family considering a watch w/ an alarm. Per Father, Glenn, Sandeep's PCP gave him a return date to work for . Will be tapering of 2 medications over the next 2 weeks; TRAVELING CRANE OPERATOR is working w/ Sandeep on med management. 2 grab bars are going to be installed in shower in the near future. 08/24/22 = Sandeep reported that he still needs to clean up his room. Sandeep reportedly played video games for an hour 3 x last week; he still needs cueing to wake up in the morning given that alarm clock has not been set-up. He does not wear a watch and uses his phone for time management. TRAVELING CRANE OPERATOR has started a journal with him; he has been using it to write down when he takes his meds. Per Father, the alarm function of his cell phone is not working. Thus, they need to take it to an [employer] store. Sandeep denied having a written location for all of his passwords; use of autopayment w/ current support from his parents with managing finances . 07/17/22 = Report of Mother, Malka, assisting with bathing (washing and drying of back and intermittently assisting w / quality of hair washing). Report of sitting down to complete distal LB dressing and to start w/ donning of pants/undergarments. Report of Father/Mother assisting w/ hygiene post-BM every trial d/ t constipation on Sandeep's concern of bleeding. Sandeep does use Miralax intermittently. He has a BM 5 out of 7 days per week per Father. Sandeep denied fall recovery training w/ PT as of yet. Denial of executing of floor push-ups at knee level. Denial of return to deirdre. Parents: Mother = Malka; Father = Glenn Patient Expectation/Goals Return to full-time work at [employer]; independence w/ IADLS/BADLs - Objective Objective Measurements Please refer to below for progress towards meeting established OT goals: Short Term Goals GOALS MET Sandeep will present with increased right upper extremity strength which will support return to work: 1a. 5/5 MMT R sh flexion. * MET 07/24/22 1b. 5/5 MMT R sh extension. * MET 07/24/22 1c. 5/5 MMT R sh abduction. * MET 07/24/22 1d. 5/5 MMT R elbow flexion. *MET 07/24/22 1e. 5/5 MMT R elbow extension . MET 07/24/22 Snf Goals 1. Sandeep will be modified independent with execution of home exercise program utilizing provided written and visual instructions from therapist with support of his family. 08/31/22 = 75% met 2. Based on self-report, Sandeep will be executing bathing with modified independence ( utilizing AE/modifications/ supports as needed). 08/31/22 = Sandeep is using shower chair w/ back; bathing self; no phys assist needed w/ t/f; close SBA provided however at this time. GOALS MET Sandeep will be manage dressing set-up on a daily basis (x 7 days) utilizing modifications/ supports as needed with modified independence. *MET - Exercises 8 Descriptor Motor planning of UEs. 7 Descriptor Trunk/core. Posture awareness. UE ROM. 2 Descriptor Squat machine modified push- ups. 37#. 3 x 10. 1 Descriptor UEB. Seated. x 10 minutes. - Assessment Assessment of Improvement Sandeep has been given return to work date of 12/30/22. Minimal arm swing and impaired posture ; some posturing of L > R hand w/ wrist in flexed position was reported by and . Initiated weight bearing UE exercises, as well as large arm movements, and lengthening of wrist flexors. Overall, good session. Home Exercise Program 08/31/22 = Rec doing 1 load of laundry. 08/24/22 = Rec writing down of usernames/passwords. 08/07/22= Discussion of deirdre for 30 minutes 1 to 2 times per week; recommended considering earlier on in the day. Recommended using bathroom versus catheter. 07/18/22 = Discussion of use of long handled sponge for washing of back versus use of hand towel modified for washing of back, robe (for assisting w/ drying post- bathing), shower stool (given no grab bars and cont concern w/ balance). Recommended working w/ PT on transition to floor and floor recovery if concern re: balance w/ modified push-ups. 07/03/22 = Reviewed HEP. Provided w/ TB#4 for personal home use; 2 knots were made on TB to assist w/ hand positioning. Instructed to complete 2 sets of 10 repetitions. Instructed in proper wrist positioning ( neutral wrist position). - Plan Therapy Recommendations Continue with Current Program, Advance per Rehabilitation Protocol
--- NOTE | 2022-09-14 14:58 | OT.OP.TRT ---
Visit Care Team Role Provider Type KIMI Robbins Family Provider Non-Staff Primary Care Provider Specialty: Nursing Address: [facility] [address], [address], [place], [address] Email: Attending Provider Referring Provider Specialty: Address: Phone: Fax: Email: Occupational Therapy Treatment Note OT Outpatient Treatment Note - Adult Start: 06/15/22 09:31 Freq: Status: Active Protocol: Document 09/14/22 14:46 AMS (Rec: 09/14/22 14:58 AMS [id number]) OT Outpatient Adult Treatment Note Session Time Visit Start Time 10:45 Visit Stop Time 11:30 Total Visit Minutes 45 Visit Information Plan of Care Dates 08/31/22 - 10/26/22 Insurance Information [employer]; changing to [facility] beginning of July Setting Treatment Setting Outpatient Care Visit Type Note Type Treatment Note General Information General Information Sandeep is a 32 year-old right hand dominant male 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 Medical history significant for intracranial hemorrhage, critical polytrauma, CSF leak, DVT (R LE), recurrent major depressive disorder and social anxiety disorder. Patient is taking Baclofen, 20 mg 3 x daily. Report of L AFO; (-) wearing AFO; use of walker w/ ambulation/gait w/ c/o dizzness w/ s-s. CGA x 1 s-s observed; SBA x 1 s-s w/ decreased safety (w/ pulling up on FWW versus pushing up from armrests). Denial of fall (s) since d/c to home. Sandeep was accompanied by his Mother, Malka, and Father, Glenn, to initial evaluation and treatment. Intake paperwork was completed by Glenn, Sandeep's Father. Sandeep verbally denied UE pain/discomfort. Indication of 2 out of 10 relative to PEG tube placement post- sleeping; 3 out of 10 relative to R big toe, 2 out of 10 L ankle, 1 out of 10 top of L foot. QuickDASH UE Outcome Measure Score = 50.0; QuickDASH Work Module Score = 75.0. 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 Sandeep resides in a 3- bedroom home with his family. - Subjective Identification Type Name Identification Reconciled With Medical Record Observations Sandeep was accompanied by his Father, Glenn, to the entire treatment session. (+) participation and playing of video games a couple hours. Reportedly not using alarm clock in the home; still needs to be oriented. Family still considering a watch w/ alarm(s ). Sandeep is executing showering w/ modified independence ( parents assist w/ positioning of shower chair. Per Father, Glenn, Sandeep's PCP gave him a return date to work for . Will be tapering of 2 medications over the next 2 weeks. Report of obtaining yoga ball for home use; has yet to be blown up though. 08/24/22 = Sandeep reported that he still needs to clean up his room. Sandeep reportedly played video games for an hour 3 x last week; he still needs cueing to wake up in the morning given that alarm clock has not been set-up. He does not wear a watch and uses his phone for time management. SPONGE DIVER has started a journal with him; he has been using it to write down when he takes his meds. Per Father, the alarm function of his cell phone is not working. Thus, they need to take it to an [employer] store. Sandeep denied having a written location for all of his passwords; use of autopayment w/ current support from his parents with managing finances . 07/17/22 = Report of Mother, Malka, assisting with bathing (washing and drying of back and intermittently assisting w / quality of hair washing). Report of sitting down to complete distal LB dressing and to start w/ donning of pants/undergarments. Report of Father/Mother assisting w/ hygiene post-BM every trial d/ t constipation on Sandeep's concern of bleeding. Sandeep does use Miralax intermittently. He has a BM 5 out of 7 days per week per Father. Sandeep denied fall recovery training w/ PT as of yet. Denial of executing of floor push-ups at knee level. Denial of return to deirdre. Parents: Mother = Malka; Father = Glenn Patient Expectation/Goals Return to full-time work at [employer]; independence w/ IADLS/BADLs - Objective Objective Measurements Please refer to below for progress towards meeting established OT goals: Short Term Goals GOALS MET Sandeep will present with increased right upper extremity strength which will support return to work: 1a. 5/5 MMT R sh flexion. * MET 07/24/22 1b. 5/5 MMT R sh extension. * MET 07/24/22 1c. 5/5 MMT R sh abduction. * MET 07/24/22 1d. 5/5 MMT R elbow flexion. *MET 07/24/22 1e. 5/5 MMT R elbow extension . MET 07/24/22 Manager Quality Systems Goals 1. Sandeep will be modified independent with execution of home exercise program utilizing provided written and visual instructions from therapist with support of his family. 09/14/22 = 75% met GOALS MET Sandeep is managing dressing set- up on a daily basis (x 7 days) utilizing modifications/ supports as needed with modified independence. *MET Sandeep is managing bathing with modified independence ( utilizing AE/modifications/ supports as needed). *MET 09/14; using shower stool to assist w/ washing of back - Exercises 8 Descriptor Motor planning of UEs. 7 Descriptor Trunk/core. Posture awareness. UE ROM. Forearm supination w/ elbows and wrists in extension . x 20 to 30 sec hold. Lengthening of wrist/digit flexors. UB/LB trunk dissociation. 3 Descriptor B sh ext w/ forearms in supination. 5# DB. 3 x 10. B forearm supination w/ elbows in extension. 5# DB. 3 x 10. Alternating arm swing/wrists in neutral. 5# DB. 3 x 10. 2 Descriptor Squat machine modified push- ups. 37#. 3 x 10. 1 Descriptor UEB. Seated. x 10 minutes. - Assessment Assessment of Improvement Sandeep has been given return to work date of 12/30/22. Minimal arm swing w/ gait. Impaired posture; decreased carry-over of recommended UE passive ROM exercises. Improving functional independence; met goal in this area. Reportedly is bathing with modified independence w/ use of shower chair for balance particularly when washing back. Parents are provided support with placing shower stool in the area. The family still has a request for installation of grab bars. Sandeep is reportedly deirdre, as well as utilizing [employer] chel on cell phone and playing Apples to Apples ( versus Taboo) w/ his parents. Overall, good session. Home Exercise Program 08/31/22 = Rec doing 1 load of laundry. 08/24/22 = Rec writing down of usernames/passwords. 08/07/22= Discussion of deirdre for 30 minutes 1 to 2 times per week; recommended considering earlier on in the day. Recommended using bathroom versus catheter. 07/18/22 = Discussion of use of long handled sponge for washing of back versus use of hand towel modified for washing of back, robe (for assisting w/ drying post- bathing), shower stool (given no grab bars and cont concern w/ balance). Recommended working w/ PT on transition to floor and floor recovery if concern re: balance w/ modified push-ups. 07/03/22 = Reviewed HEP. Provided w/ TB#4 for personal home use; 2 knots were made on TB to assist w/ hand positioning. Instructed to complete 2 sets of 10 repetitions. Instructed in proper wrist positioning ( neutral wrist position). - Plan Therapy Recommendations Advance per Rehabilitation Protocol
--- NOTE | 2022-09-21 14:02 | OT.OP.TRT ---
Visit Care Team Role Provider Type KIMI Robbins Family Provider Non-Staff Primary Care Provider Specialty: Nursing Address: [facility] [address], [address], [place], [address] Email: Attending Provider Referring Provider Specialty: Address: Phone: Fax: Email: Occupational Therapy Treatment Note OT Outpatient Treatment Note - Adult Start: 06/15/22 09:31 Freq: Status: Active Protocol: Document 09/21/22 13:42 AMS (Rec: 09/21/22 14:02 AMS [id number]) OT Outpatient Adult Treatment Note Session Time Visit Start Time 10:45 Visit Stop Time 11:30 Total Visit Minutes 45 Visit Information Plan of Care Dates 08/31/22 - 10/26/22 Insurance Information [employer]; changing to [facility] beginning of July Setting Treatment Setting Outpatient Care Visit Type Note Type Treatment Note General Information General Information Sandeep is a 32 year-old right hand dominant male 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 Medical history significant for intracranial hemorrhage, critical polytrauma, CSF leak, DVT (R LE), recurrent major depressive disorder and social anxiety disorder. Patient is taking Baclofen, 20 mg 3 x daily. Report of L AFO; (-) wearing AFO; use of walker w/ ambulation/gait w/ c/o dizzness w/ s-s. CGA x 1 s-s observed; SBA x 1 s-s w/ decreased safety (w/ pulling up on FWW versus pushing up from armrests). Denial of fall (s) since d/c to home. Sandeep was accompanied by his Mother, Malka, and Father, Glenn, to initial evaluation and treatment. Intake paperwork was completed by Glenn, Sandeep's Father. Sandeep verbally denied UE pain/discomfort. Indication of 2 out of 10 relative to PEG tube placement post- sleeping; 3 out of 10 relative to R big toe, 2 out of 10 L ankle, 1 out of 10 top of L foot. QuickDASH UE Outcome Measure Score = 50.0; QuickDASH Work Module Score = 75.0. 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 Sandeep resides in a 3- bedroom home with his family. - Subjective Identification Type Name Identification Reconciled With Medical Record Observations Sandeep was accompanied by his Father, Glenn, to the entire treatment session. (+) participation and playing of video games a couple hours. No recent access of bank account and/or use of personal debit card w/ recalling pin. Modified independence w/ bathing and toileting, including toileting hygiene; still using urinal at night; self-emptying urinal mornings without cueing. Filling mediset w/ parents checking; remembering to take meds approx half the time. Per Father, Glenn, Sandeep's PCP gave him a return date to work for 12/30/22. 08/24/22 = Sandeep reported that he still needs to clean up his room. Sandeep reportedly played video games for an hour 3 x last week; he still needs cueing to wake up in the morning given that alarm clock has not been set-up. He does not wear a watch and uses his phone for time management. ENVIRONMENTAL SERVICES ATTENDANT has started a journal with him; he has been using it to write down when he takes his meds. Per Father, the alarm function of his cell phone is not working. Thus, they need to take it to an [employer] store. Sandeep denied having a written location for all of his passwords; use of autopayment w/ current support from his parents with managing finances . 07/17/22 = Report of Mother, Malka, assisting with bathing (washing and drying of back and intermittently assisting w / quality of hair washing). Report of sitting down to complete distal LB dressing and to start w/ donning of pants/undergarments. Report of Father/Mother assisting w/ hygiene post-BM every trial d/ t constipation on Sandeep's concern of bleeding. Sandeep does use Miralax intermittently. He has a BM 5 out of 7 days per week per Father. Sandeep denied fall recovery training w/ PT as of yet. Denial of executing of floor push-ups at knee level. Denial of return to deirdre. Parents: Mother = Malka; Father = Glenn Patient Expectation/Goals Return to full-time work at [employer]; independence w/ IADLS/BADLs - Objective Objective Measurements Please refer to below for progress towards meeting established OT goals: Short Term Goals GOALS MET Sandeep will present with increased right upper extremity strength which will support return to work: 1a. 5/5 MMT R sh flexion. * MET 07/24/22 1b. 5/5 MMT R sh extension. * MET 07/24/22 1c. 5/5 MMT R sh abduction. * MET 07/24/22 1d. 5/5 MMT R elbow flexion. *MET 07/24/22 1e. 5/5 MMT R elbow extension . MET 07/24/22 Digital Design Engineer Goals 1. Sandeep will be modified independent with execution of home exercise program utilizing provided written and visual instructions from therapist with support of his family. 09/21/22 = 75 % met 2. Sandeep will present with improved functional independence; this will be evidenced by the followina. Sandeep will have set-up banking chel on personal cell phone. 2b. Sandeep will verbally report use of personal debit card for purchasing of item with ability to recall pin without assistance from parents on more than 2 separate occasions . 2c. Sandeep will verbally report ability to access banking chel on personal cell phone, as well as navigate [employer] chel to locate current balance and/ or list of recent purchases. This will be verbally confirmed by parent(s ) and/or demonstrated to clinician. GOALS MET Sandeep is managing dressing set- up on a daily basis (x 7 days) utilizing modifications/ supports as needed with modified independence. *MET Sandeep is managing bathing with modified independence ( utilizing AE/modifications/ supports as needed). *MET 09/14; using shower stool to assist w/ washing of back - Treatment 1 Descriptor Divided attention. Sequencing. Functional problem solving. Recall. Able to recall 3 digit number span x 5 trials and 4 digit number span x 2 trials without errors w/ alt UE motor component. Able to recall 3 digit number span backwards x 2 trials without errors. Able to recall backwards number span x 2 trials w/ alt UE motor component; errors observed in 2 additional trials, including forward sequencing of 4 digit number span. Able to sequence cards 10 --> 2 for all 4 suits without errors. Able to recall and execute alt UE motor pattern x 3 motor steps. Exercises 8 Descriptor Motor planning of UEs. 7 Descriptor Trunk/core. Posture awareness. UE ROM. Forearm supination w/ elbows and wrists in extension . x 20 to 30 sec hold. Lengthening of wrist/digit flexors. UB/LB trunk dissociation. 3 Descriptor B sh ext w/ forearms in supination. 5# DB. 3 x 10. B forearm supination w/ elbows in extension. 5# DB. 3 x 10. Alternating arm swing/wrists in neutral. 5# DB. 3 x 10. 1 Descriptor UEB. Seated. x 10 minutes. - Assessment Assessment of Improvement Sandeep has been given return to work date of 12/30/22. Sandeep is presenting w/ improving functional independence with execution of ADLs; he is reportedly independent with toileting, including toileting hygiene/pericare and med management (preparing medi set ). However, he is cont to use urinal at night (6 out of 7 nights) and is needing cueing to remember his meds half of the time. Sandeep has not recently accessed his personal bank account/navigated his account online or actively used his debt card w/ recalling his pin number. Thus , he cont to show a deficit with functional activities compared to PLOF. Sandeep was able to sequencing cards 10 -- > 2 without assist and was able to recall 3-digit number spans in forwards and backwards directions without errors. He did not have errors w/ recalling forward 4 digit span x 2 trials in forwards direction, but was inconsistent w/ recall ability in backwards direction. He is currently on a waitlist to resume outpatient ENVIRONMENTAL SERVICES ATTENDANT therapy. Overall, good session. Home Exercise Program 09/21/22 = Download banking chel on personal cell phone. Navigate banking chel (log in, locate balance/list of purchases). Use personal [employer] card w/ recalling pin number - to make purchases. 08/31/22 = Rec doing 1 load of laundry. 08/24/22 = Rec writing down of usernames/passwords. 08/07/22= Discussion of deirdre for 30 minutes 1 to 2 times per week; recommended considering earlier on in the day. Recommended using bathroom versus catheter. 07/18/22 = Discussion of use of long handled sponge for washing of back versus use of hand towel modified for washing of back, robe (for assisting w/ drying post- bathing), shower stool (given no grab bars and cont concern w/ balance). Recommended working w/ PT on transition to floor and floor recovery if concern re: balance w/ modified push-ups. 07/03/22 = Reviewed HEP. Provided w/ TB#4 for personal home use; 2 knots were made on TB to assist w/ hand positioning. Instructed to complete 2 sets of 10 repetitions. Instructed in proper wrist positioning ( neutral wrist position). - Plan Therapy Recommendations Continue with Current Program, Advance per Rehabilitation Protocol
--- NOTE | 2022-10-05 15:45 | OT.OP.TRT ---
Visit Care Team Role Provider Type KIMI Robbins Family Provider Non-Staff Primary Care Provider Specialty: Nursing Address: [facility] [address], [address], [place], [address] Email: Attending Provider Referring Provider Specialty: Address: Phone: Fax: Email: Occupational Therapy Treatment Note OT Outpatient Treatment Note - Adult Start: 06/15/22 09:31 Freq: Status: Active Protocol: Document 10/05/22 16:00 AMS (Rec: 10/06/22 09:40 AMS [id number]) OT Outpatient Adult Treatment Note Session Time Visit Start Time 08:30 Visit Stop Time 09:15 Total Visit Minutes 45 Visit Information Plan of Care Dates 08/31/22 - 10/26/22 Insurance Information [employer]; changing to [facility] beginning of July Setting Treatment Setting Outpatient Care Visit Type Note Type Treatment Note General Information General Information aSndeep is a 32 year-old right hand dominant male 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 Medical history significant for intracranial hemorrhage, critical polytrauma, CSF leak, DVT (R LE), recurrent major depressive disorder and social anxiety disorder. Patient is taking Baclofen, 20 mg 3 x daily. Report of L AFO; (-) wearing AFO; use of walker w/ ambulation/gait w/ c/o dizzness w/ s-s. CGA x 1 s-s observed; SBA x 1 s-s w/ decreased safety (w/ pulling up on FWW versus pushing up from armrests). Denial of fall (s) since d/c to home. Sandeep was accompanied by his Mother, Malka, and Father, Glenn, to initial evaluation and treatment. Intake paperwork was completed by Glenn, Sandeep's Father. Sandeep verbally denied UE pain/discomfort. Indication of 2 out of 10 relative to PEG tube placement post- sleeping; 3 out of 10 relative to R big toe, 2 out of 10 L ankle, 1 out of 10 top of L foot. QuickDASH UE Outcome Measure Score = 50.0; QuickDASH Work Module Score = 75.0. 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 Sandeep resides in a 3- bedroom home with his family. - Subjective Identification Type Name Identification Reconciled With Medical Record Observations Sandeep was accompanied by his Father, Glenn, to the entire treatment session. (+) participation and playing of video games a couple hours. Sandeep is mod I w/ bathing, dressing, g/h tasks, and self- feeding; he has reportedly used debit card and made purchases w/ independence w/ recalling pin. He is using alarms on his cell phone in order to remember taking his medications; he is setting the alarms on his own and using journal to keep track of medications. His parents are making his medical appointments; the family utilizes a paper calendar in which Sandeep and parents fill-in . He is reportedly forgetting pieces of personal address; he has yet to put banking chel on personal cell phone. Per Father, Glenn, Sandeep's PCP gave him a return date to work for 12/30/22. 08/24/22 = Sandeep reported that he still needs to clean up his room. Sandeep reportedly played video games for an hour 3 x last week; he still needs cueing to wake up in the morning given that alarm clock has not been set-up. He does not wear a watch and uses his phone for time management. BOARDING KENNEL OR CATTERY OPERATOR has started a journal with him; he has been using it to write down when he takes his meds. Per Father, the alarm function of his cell phone is not working. Thus, they need to take it to an [employer] store. Sandeep denied having a written location for all of his passwords; use of autopayment w/ current support from his parents with managing finances . 07/17/22 = Report of Mother, Malka, assisting with bathing (washing and drying of back and intermittently assisting w / quality of hair washing). Report of sitting down to complete distal LB dressing and to start w/ donning of pants/undergarments. Report of Father/Mother assisting w/ hygiene post-BM every trial d/ t constipation on Sandeep's concern of bleeding. Sandeep does use Miralax intermittently. He has a BM 5 out of 7 days per week per Father. Sandeep denied fall recovery training w/ PT as of yet. Denial of executing of floor push-ups at knee level. Denial of return to deirdre. Parents: Mother = Malka; Father = Glenn Patient Expectation/Goals Return to full-time work at [employer]; independence w/ IADLS/BADLs - Objective Objective Measurements Please refer to below for progress towards meeting established OT goals: Short Term Goals GOALS MET Sandeep will present with increased right upper extremity strength which will support return to work: 1a. 5/5 MMT R sh flexion. * MET 07/24/22 1b. 5/5 MMT R sh extension. * MET 07/24/22 1c. 5/5 MMT R sh abduction. * MET 07/24/22 1d. 5/5 MMT R elbow flexion. *MET 07/24/22 1e. 5/5 MMT R elbow extension . MET 07/24/22 Assisted Goals 1. Sandeep will be modified independent with execution of home exercise program utilizing provided written and visual instructions from therapist with support of his family. 09/21/22 = 75 % met 2. Sandeep will present with improved functional independence; this will be evidenced by the followina. Sandeep will have set-up banking chel on personal cell phone. 2b. Sandeep will verbally report ability to access banking chel on personal cell phone, as well as navigate banking chel to locate current balance and/ or list of recent purchases. This will be verbally confirmed by parent(s ) and/or demonstrated to clinician. GOALS MET Sandeep is managing dressing set- up on a daily basis (x 7 days) utilizing modifications/ supports as needed with modified independence. *MET Sandeep is managing bathing with modified independence ( utilizing AE/modifications/ supports as needed). *MET 09/14; using shower stool to assist w/ washing of back Sandeep will verbally report use of personal debit card for purchasing of item with ability to recall pin without assistance on more than 2 separate occasions. *MET - Treatment 3 Descriptor Admin of [place] Making Part A and Part B. 2 Descriptor Discussion re: functional activities/current functional status. 1 Descriptor Divided attention. Sequencing. Functional problem solving. Recall. Able to recall 3 digit number span x 5 trials and 4 digit number span x 2 trials without errors w/ alt UE motor component. Able to recall 3 digit number span backwards x 2 trials without errors. Able to recall backwards number span x 2 trials w/ alt UE motor component; errors observed in 2 additional trials, including forward sequencing of 4 digit number span. Able to sequence cards 10 --> 2 for all 4 suits without errors. Able to recall and execute alt UE motor pattern x 3 motor steps. Exercises 1 Descriptor UEB. Seated. x 10 minutes. - Assessment Assessment of Improvement Sandeep has been given return to work date of 12/30/22. Sandeep is presenting w/ increasing functional independence; he is managing personal alarms on cell phone for medications and he has been able to recall pin for personal debit card without assistance for making purchases. Therapist administered [place] Making Tests A and B; Sandeep completed the [place] Making Test (part B) without errors in 1 min 58 seconds which indicates mild to moderate cognitive impairment. Overall, good session. Home Exercise Program 10/05/22 = Download banking chel on personal cell phone. Navigate [employer] chel. Use self check-out. 09/21/22 = Download banking chel on personal cell phone. Navigate banking chle (log in, locate balance/list of purchases). Use personal debit card w/ recalling pin number - to make purchases. 08/31/22 = Rec doing 1 load of laundry. 08/24/22 = Rec writing down of usernames/passwords. 08/07/22= Discussion of deirdre for 30 minutes 1 to 2 times per week; recommended considering earlier on in the day. Recommended using bathroom versus catheter. 07/18/22 = Discussion of use of long handled sponge for washing of back versus use of hand towel modified for washing of back, robe (for assisting w/ drying post- bathing), shower stool (given no grab bars and cont concern w/ balance). Recommended working w/ PT on transition to floor and floor recovery if concern re: balance w/ modified push-ups. 07/03/22 = Reviewed HEP. Provided w/ TB#4 for personal home use; 2 knots were made on TB to assist w/ hand positioning. Instructed to complete 2 sets of 10 repetitions. Instructed in proper wrist positioning ( neutral wrist position). - Plan Therapy Recommendations Continue with Current Program, Advance per Rehabilitation Protocol
--- NOTE | 2022-10-10 16:00 | OT.OP.TRT ---
Visit Care Team Role Provider Type KIMI Robbins Family Provider Non-Staff Primary Care Provider Specialty: Nursing Address: [facility] [address], [address], [place], [address] Email: Attending Provider Referring Provider Specialty: Address: Phone: Fax: Email: Occupational Therapy Treatment Note OT Outpatient Treatment Note - Adult Start: 06/15/22 09:31 Freq: Status: Active Protocol: Document 10/10/22 16:00 AMS (Rec: 10/11/22 09:03 [facility] [id number]) OT Outpatient Adult Treatment Note Session Time Visit Start Time 09:45 Visit Stop Time 10:30 Total Visit Minutes 45 Visit Information Plan of Care Dates 08/31/22 - 10/26/22 Insurance Information [employer]; changing to [facility] beginning of July Setting Treatment Setting Outpatient Care Visit Type Note Type Treatment Note General Information General Information Sandeep is a 32 year-old right hand dominant male 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 Medical history significant for intracranial hemorrhage, critical polytrauma, CSF leak, DVT (R LE), recurrent major depressive disorder and social anxiety disorder. Patient is taking Baclofen, 20 mg 3 x daily. Report of L AFO; (-) wearing AFO; use of walker w/ ambulation/gait w/ c/o dizzness w/ s-s. CGA x 1 s-s observed; SBA x 1 s-s w/ decreased safety (w/ pulling up on FWW versus pushing up from armrests). Denial of fall (s) since d/c to home. Sandeep was accompanied by his Mother, Malka, and Father, Glenn, to initial evaluation and treatment. Intake paperwork was completed by Glenn, Sandeep's Father. Sandeep verbally denied UE pain/discomfort. Indication of 2 out of 10 relative to PEG tube placement post- sleeping; 3 out of 10 relative to R big toe, 2 out of 10 L ankle, 1 out of 10 top of L foot. QuickDASH UE Outcome Measure Score = 50.0; QuickDASH Work Module Score = 75.0. 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 Sandeep resides in a 3- bedroom home with his family. - Subjective Identification Type Name Identification Reconciled With Medical Record Observations Sandeep was accompanied by his Father, Glenn, to the entire treatment session. (+) participation and playing of video games a couple hours. Sandeep is mod I w/ bathing including transfers, dressing, g/h tasks, and self-feeding; he has reportedly used debit card and made purchases w/ independence w/ recalling pin. He is using alarms on his cell phone in order to remember taking his medications and to get himself up in the morning. His parents are making his medical appointments and assisting w/ medical paperwork/answering questions for [employer]; the family utilizes a paper calendar in which Sandeep and parents fill-in . He is reportedly forgetting pieces of personal address; he has yet to put banking chel on personal cell phone. He is seeing PCP 10/11/22; and getting hearing aide 11/14/22. Per Father, Glenn, Sandeep's PCP gave him a return date to work for 12/30/22. 08/24/22 = Sandeep reported that he still needs to clean up his room. Sandeep reportedly played video games for an hour 3 x last week; he still needs cueing to wake up in the morning given that alarm clock has not been set-up. He does not wear a watch and uses his phone for time management. STAVE MACHINE TENDER has started a journal with him; he has been using it to write down when he takes his meds. Per Father, the alarm function of his cell phone is not working. Thus, they need to take it to an [employer] store. Sandeep denied having a written location for all of his passwords; use of autopayment w/ current support from his parents with managing finances . 07/17/22 = Report of Mother, Malka, assisting with bathing (washing and drying of back and intermittently assisting w / quality of hair washing). Report of sitting down to complete distal LB dressing and to start w/ donning of pants/undergarments. Report of Father/Mother assisting w/ hygiene post-BM every trial d/ t constipation on Sandeep's concern of bleeding. Sandeep does use Miralax intermittently. He has a BM 5 out of 7 days per week per Father. Sandeep denied fall recovery training w/ PT as of yet. Denial of executing of floor push-ups at knee level. Denial of return to deirdre. Parents: Mother = Malka; Father = Glenn Patient Expectation/Goals Return to full-time work at [employer]; independence w/ IADLS/BADLs - Objective Objective Measurements Please refer to below for progress towards meeting established OT goals: Short Term Goals GOALS MET Sandeep will present with increased right upper extremity strength which will support return to work: 1a. 5/5 MMT R sh flexion. * MET 07/24/22 1b. 5/5 MMT R sh extension. * MET 07/24/22 1c. 5/5 MMT R sh abduction. * MET 07/24/22 1d. 5/5 MMT R elbow flexion. *MET 07/24/22 1e. 5/5 MMT R elbow extension . MET 07/24/22 Vending Supervisor Goals 1. Sandeep will be modified independent with execution of home exercise program utilizing provided written and visual instructions from therapist with support of his family. 09/21/22 = 75 % met 2. Sandeep will present with improved functional independence; this will be evidenced by the followina. Sandeep will verbally report ability to access banking account via internet address, as well as navigate [employer] chel to locate current balance and/or list of recent purchases. This will be verbally confirmed by parent(s) and/or demonstrated to clinician. 02/22 = GOAL MODIFIED GOALS MET Sandeep is managing dressing set- up on a daily basis (x 7 days) utilizing modifications/ supports as needed with modified independence. *MET Sandeep is managing bathing with modified independence ( utilizing AE/modifications/ supports as needed). *MET 09/14; using shower stool to assist w/ washing of back Sandeep will verbally report use of personal debit card for purchasing of item with ability to recall pin without assistance on more than 2 separate occasions. *MET GOALS D/C 10/10/22 Sandeep will have set-up banking chel on personal cell phone. 03/24 = pt/family preference to access banking acct via internet vs chel on phone - Treatment 3 Descriptor Admin of [place] Making Part A and Part B. 2 Descriptor Discussion re: functional activities/current functional status. 1 Descriptor Visual scanning. Divided attention. Executive function. Exercises 1 Descriptor UEB. Seated. x 10 minutes. - Assessment Assessment of Improvement Sandeep has been given return to work date of 12/30/22. Sandeep is presenting w/ increasing functional independence; he is managing personal alarms on cell phone for medications, alarm clock in the a.m., and he has been able to recall pin for personal debit card without assistance for making purchases. He has required some verbal prompting from Father w/ laundry. Uses notebook for journaling medications/keeping track of passwords. He demonstrated good visual scanning w/ single target identification w/ auditory distraction without errors 12 rows x 36 columns. He had some difficulty recalling pattern sequence w/ card based activity and required assistance to recall current place in pattern ( approx on 7 occasions). He was able to form approx 10 sets w / identification of 3 different cards w/ different colors, shapes, and numbers in sequential order of 1-3 without assistance from clinician; he was able to self -correct and problem solve without fixation on keeping first 1-2 cards retrieved from TT. Need for assistance w/ answering medical questions and/or completing paperwork for [employer]; discussed creating a cheat sheet w/ Father and having it available on personal cell phone if having difficulty w/ recall/ anxiousness. Overall, good session. Home Exercise Program 10/11/22 = Access banking account via website versus cell phone. Create 'cheat sheet' for referencing for medical history; have available on current cell phone. 10/05/22 = Download banking chel on personal cell phone. Navigate [place] chel. Use self check-out. 09/21/22 = Download banking chel on personal cell phone. Navigate banking chel (log in, locate balance/list of purchases). Use personal debit card w/ recalling pin number - to make purchases. 08/31/22 = Rec doing 1 load of laundry. 08/24/22 = Rec writing down of usernames/passwords. 08/07/22= Discussion of deirdre for 30 minutes 1 to 2 times per week; recommended considering earlier on in the day. Recommended using bathroom versus catheter. 07/18/22 = Discussion of use of long handled sponge for washing of back versus use of hand towel modified for washing of back, robe (for assisting w/ drying post- bathing), shower stool (given no grab bars and cont concern w/ balance). Recommended working w/ PT on transition to floor and floor recovery if concern re: balance w/ modified push-ups. 07/03/22 = Reviewed HEP. Provided w/ TB#4 for personal home use; 2 knots were made on TB to assist w/ hand positioning. Instructed to complete 2 sets of 10 repetitions. Instructed in proper wrist positioning ( neutral wrist position). - Plan Therapy Recommendations Continue with Current Program, Advance per Rehabilitation Protocol
--- NOTE | 2022-10-18 14:16 | OT.OP.TRT ---
Visit Care Team Role Provider Type KIMI Robbins Family Provider Non-Staff Primary Care Provider Specialty: Nursing Address: [facility] [address], [address], [place], [address] Email: Attending Provider Referring Provider Specialty: Address: Phone: Fax: Email: Occupational Therapy Treatment Note OT Outpatient Treatment Note - Adult Start: 06/15/22 09:31 Freq: Status: Active Protocol: Document 10/18/22 13:18 AMS (Rec: 10/18/22 13:19 AMS [id number]) OT Outpatient Adult Treatment Note Session Time Visit Start Time 08:30 Visit Stop Time 09:15 Total Visit Minutes 45 Visit Information Plan of Care Dates 08/31/22 - 10/26/22 Insurance Information [employer]; changing to [facility] beginning of July Setting Treatment Setting Outpatient Care Visit Type Note Type Treatment Note General Information General Information Sandeep is a 32 year-old right hand dominant male 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 Medical history significant for intracranial hemorrhage, critical polytrauma, CSF leak, DVT (R LE), recurrent major depressive disorder and social anxiety disorder. Patient is taking Baclofen, 20 mg 3 x daily. Report of L AFO; (-) wearing AFO; use of walker w/ ambulation/gait w/ c/o dizzness w/ s-s. CGA x 1 s-s observed; SBA x 1 s-s w/ decreased safety (w/ pulling up on FWW versus pushing up from armrests). Denial of fall (s) since d/c to home. Sandeep was accompanied by his Mother, Malka, and Father, Glenn, to initial evaluation and treatment. Intake paperwork was completed by Glenn, Sandeep's Father. Sandeep verbally denied UE pain/discomfort. Indication of 2 out of 10 relative to PEG tube placement post- sleeping; 3 out of 10 relative to R big toe, 2 out of 10 L ankle, 1 out of 10 top of L foot. QuickDASH UE Outcome Measure Score = 50.0; QuickDASH Work Module Score = 75.0. 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 Sandeep resides in a 3- bedroom home with his family. - Subjective Identification Type Name Identification Reconciled With Medical Record Observations Sandeep was accompanied by his Father, Glenn, for approx 40% of treatment session. (+) participation and playing of video games a couple hours. Sandeep is mod I w/ bathing including transfers, dressing, g/h tasks, and self-feeding; he has reportedly used debit card and made purchases w/ independence w/ recalling pin. He is using alarms on his cell phone in order to remember taking his medications and to get himself up in the morning. Min v.c. to support execution of laundry. His parents are making his medical appointments and assisting w/ medical paperwork/answering questions for LTD; the family utilizes a paper calendar in which Sandeep and parents fill-in . He saw PCP who extended out LTD to 03/03/23; getting hearing aide 11/14/22. 08/24/22 = Sandeep reported that he still needs to clean up his room. Sandeep reportedly played video games for an hour 3 x last week; he still needs cueing to wake up in the morning given that alarm clock has not been set-up. He does not wear a watch and uses his phone for time management. INFORMATION SYSTEMS ARCHITECT has started a journal with him; he has been using it to write down when he takes his meds. Per Father, the alarm function of his cell phone is not working. Thus, they need to take it to an [employer] store. Sandeep denied having a written location for all of his passwords; use of autopayment w/ current support from his parents with managing finances . 07/17/22 = Report of Mother, Malka, assisting with bathing (washing and drying of back and intermittently assisting w / quality of hair washing). Report of sitting down to complete distal LB dressing and to start w/ donning of pants/undergarments. Report of Father/Mother assisting w/ hygiene post-BM every trial d/ t constipation on Sandeep's concern of bleeding. Sandeep does use Miralax intermittently. He has a BM 5 out of 7 days per week per Father. Sandeep denied fall recovery training w/ PT as of yet. Denial of executing of floor push-ups at knee level. Denial of return to deirdre. Parents: Mother = Malka; Father = Glenn Patient Expectation/Goals Return to full-time work at [employer]; independence w/ IADLS/BADLs - Objective Objective Measurements Please refer to below for progress towards meeting established OT goals: Short Term Goals GOALS MET Sandeep will present with increased right upper extremity strength which will support return to work: 1a. 5/5 MMT R sh flexion. * MET 07/24/22 1b. 5/5 MMT R sh extension. * MET 07/24/22 1c. 5/5 MMT R sh abduction. * MET 07/24/22 1d. 5/5 MMT R elbow flexion. *MET 07/24/22 1e. 5/5 MMT R elbow extension . MET 07/24/22 Penitentiary Goals 1. Sandeep will be modified independent with execution of home exercise program utilizing provided written and visual instructions from therapist with support of his family. 09/21/22 = 75 % met 2. Sandeep will present with improved functional independence; this will be evidenced by the followina. Sandeep will verbally report ability to access banking account via internet address, as well as navigate banking website to locate current balance and/or list of recent purchases. This will be verbally confirmed by parent(s ) and/or demonstrated to clinician. 10/10/22 = GOAL MODIFIED GOALS MET Sandeep is managing dressing set- up on a daily basis (x 7 days) utilizing modifications/ supports as needed with modified independence. *MET Sandeep is managing bathing with modified independence ( utilizing AE/modifications/ supports as needed). *MET 09/14; using shower stool to assist w/ washing of back Sandeep will verbally report use of personal debit card for purchasing of item with ability to recall pin without assistance on more than 2 separate occasions. *MET GOALS D/C 10/10/22 Sandeep will have set-up banking chel on personal cell phone. 03/24 = pt/family preference to access banking acct via internet vs chel on phone - Treatment 2 Descriptor Discussion re: functional activities/current functional status. 1 Descriptor Visual scanning. Divided attention. Executive function. 3-step recall. - Assessment Assessment of Improvement Sandeep has been given return to work date of 03/03/23. He was able to form approx 15+ sets w / identification of 3 different cards w/ different colors, shapes, and numbers in sequential order of 1-3 without assistance from clinician; he was able to self -correct and problem solve without fixation on keeping first 1-2 cards retrieved from TT. 3 v.c. to support recall of number, color, shape sequence w/ card based activity. Able to recall letter, number, color sequence w/ visual scanning activity w / visual cue/reference point provided by therapist without errors; min v.c. to support recall of written color vs color of box. Able to self- identify strategy to support recall of list w/ grocery shopping (via texting). Overall, good session. Home Exercise Program 10/11/22 = Access banking account via website versus cell phone. Create 'cheat sheet' for referencing for medical history; have available on current cell phone. 10/05/22 = Download banking chel on personal cell phone. Navigate [employer] che[employer]. Use self check-out. 09/21/22 = Download banking chel on personal cell phone. Navigate banking chel (log in, locate balance/list of purchases). Use personal debit card w/ recalling pin number - to make purchases. 08/31/22 = Rec doing 1 load of laundry. 08/24/22 = Rec writing down of usernames/passwords. 08/07/22= Discussion of deirdre for 30 minutes 1 to 2 times per week; recommended considering earlier on in the day. Recommended using bathroom versus catheter. 07/18/22 = Discussion of use of long handled sponge for washing of back versus use of hand towel modified for washing of back, robe (for assisting w/ drying post- bathing), shower stool (given no grab bars and cont concern w/ balance). Recommended working w/ PT on transition to floor and floor recovery if concern re: balance w/ modified push-ups. 07/03/22 = Reviewed HEP. Provided w/ TB#4 for personal home use; 2 knots were made on TB to assist w/ hand positioning. Instructed to complete 2 sets of 10 repetitions. Instructed in proper wrist positioning ( neutral wrist position). - Plan Therapy Recommendations Continue with Current Program, Advance per Rehabilitation Protocol
--- NOTE | 2022-10-25 16:00 | OT.OPPOC ---
Physical, Occupational & Speech Therapy At [facility] Anirudh Jorge V [id number] 1990 Visit Care Team Role Provider Type KIMI Robbins Family Provider Non-Staff Primary Care Provider Address: [address], [address], [place], [address] Attending Provider Referring Provider Address: Phone: Fax: Occupational Therapy Plan of Care OT Outpatient Adult Evaluation Start: 06/15/22 09:31 Freq: Status: Active Protocol: Document 06/13/22 15:30 AMS (Rec: 06/15/22 10:19 AMS [id number]) General Information - Adult Visit Information Plan of Care Dates 06/13/22 - 07/25/22 Insurance Information [employer]; changing to [facility] beginning of July Session Time Visit Start Time 10:15 Visit Stop Time 11:15 Total Visit Minutes 60 Setting Treatment Setting Outpatient Care Visit Type Note Type Initial Evaluation Identification Identification Confirmed Yes Identification Confirmed By Self; parents Goals Treatment Treatment Review of findings; discussion pertaining to OT goals/ treatment and findings. Short Term Goals Short Term Goals 1. Sandeep will present with increased right upper extremity strength which will support return to work: 1a. 5/5 MMT R sh flexion. 1b. 5/5 MMT R sh extension. 1c. 5/5 MMT R sh abduction. 1d. 5/5 MMT R elbow flexion. 1e. 5/5 MMT R elbow extension . Care Home Goals Care Home Goals 1. Sandeep will be modified independent with execution of home exercise program utilizing provided written and visual instructions from therapist with support of his family. 2. Based on self-report, Sandeep will be manage dressing set- up on a daily basis (x 7 days) utilizing modifications/ supports as needed with modified independence. 3. Based on self-report, Sandeep will be executing bathing with modified independence ( utilizing AE/modifications/ supports as needed). 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 Medical history significant for intracranial hemorrhage, critical polytrauma, CSF leak, DVT (R LE), recurrent major depressive disorder and social anxiety disorder. Patient is taking Baclofen, 20 mg 3 x daily. Report of L AFO; (-) wearing AFO; use of walker w/ ambulation/gait w/ c/o dizzness w/ s-s. CGA x 1 s-s observed; SBA x 1 s-s w/ decreased safety (w/ pulling up on FWW versus pushing up from armrests). Denial of fall (s) since d/c to home. Sandeep was accompanied by his Mother, Malka, and Father, Glenn, to initial evaluation and treatment. Intake paperwork was completed by Glenn, Sandeep's Father. Sandeep verbally denied UE pain/discomfort. Indication of 2 out of 10 relative to PEG tube placement post- sleeping; 3 out of 10 relative to R big toe, 2 out of 10 L ankle, 1 out of 10 top of L foot. QuickDASH UE Outcome Measure Score = 50.0; QuickDASH Work Module Score = 75.0. 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 Sandeep resides in a 3- bedroom home with his family. Evaluation findings: Current level of function: Parents will assist w/ transfers, bed mobility, bathing, dressing set-up. Decreased engagement in previously identified meaningful activities of daily living (deirdre). He is dependent with community mobility. Denial of fatigue and/or napping. (-) orientation to date. (-) ability to recall personal cell phone number; however, this reportedly is baseline. ( +) orientation to . (+) use of cellphone for messaging and social media. B UE AROM. Able to oppose thumbs bilaterally to each digit pad with EO and EC without difficulties. Right shoulder/ elbow weakness; decreased bilateral gip strength. Correctly identified 38 out of 40 items w/ visual scanning task; not observed to need to reference item 2-digit numbers at bottom of page throughout task completion; (-) erratic scanning noted. (-) frustration noted w/ visual scanning and/or MVPT-4 assessments. The Motor-Free Visual Perception Test (4th ed .) (MVPT-4) is an individually administered assessment of visual-perceptual skills. The MVPT-4 tasks provide information for five types of visual-perceptual abilities: spatial relationships, visual discrimination, figure-ground, visual closure, and visual memory. Sandeep obtained a raw score of 21 which was converted to a standard score of 61 which is > 2 SD below the mean. Sandeep's performance suggests that his visual perceptual abilities are less than/impaired when compared to that of his peers. Sandeep would likely benefit from skilled outpatient OT to address functional independence, right shoulder/ elbow weakness, bilateral surveillance specialist strength weakness, and his ability to successfully participate in meaningful activities (e.g., deirdre, movie watching) and return to work. Further evaluation of visual perceptual skills is recommended; need to determine if current level is baseline. Plan Length of treatment (weeks) 6 Plan of Care Start Date 06/13/22 Plan of Care End Date 07/25/22 Treatment Frequency Once a Week Therapeutic Contents Active Range of Motion, Adaptive Equipment Education, Client Education,Cognitive Skills Development,Functional Activities,Home Exercise Program,Joint Protection, Education,Neurodevelopment Treatment,Neuromuscular Re- Education,Self-Care,Stretching /Flexibility Activities, Therapeutic Activities, Therapeutic Exercises Functional Wrist/Hand Scan Hand Side Sensory Assessment Sensory Profile2 OT Outpatient Treatment Note - Adult Start: 06/15/22 09:31 Freq: Status: Active Protocol: Document 10/25/22 16:00 AMS (Rec: 10/26/22 12:38 [facility] [id number]) OT Outpatient Adult Treatment Note Session Time Visit Start Time 10:45 Visit Stop Time 11:30 Total Visit Minutes 45 Visit Information Plan of Care Dates 10/25/22 - 11/29/22 Insurance Information [employer]; changing to [facility] beginning of July Setting Treatment Setting Outpatient Care Visit Type Note Type Progress Note General Information General Information Sandeep is a 32 year-old right hand dominant male 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 Medical history significant for intracranial hemorrhage, critical polytrauma, CSF leak, DVT (R LE), recurrent major depressive disorder and social anxiety disorder. Patient is taking Baclofen, 20 mg 3 x daily. Report of L AFO; (-) wearing AFO; use of walker w/ ambulation/gait w/ c/o dizzness w/ s-s. CGA x 1 s-s observed; SBA x 1 s-s w/ decreased safety (w/ pulling up on FWW versus pushing up from armrests). Denial of fall (s) since d/c to home. Sandeep was accompanied by his Mother, Malka, and Father, Glenn, to initial evaluation and treatment. Intake paperwork was completed by Glenn, Sandeep's Father. Sandeep verbally denied UE pain/discomfort. Indication of 2 out of 10 relative to PEG tube placement post- sleeping; 3 out of 10 relative to R big toe, 2 out of 10 L ankle, 1 out of 10 top of L foot. QuickDASH UE Outcome Measure Score = 50.0; QuickDASH Work Module Score = 75.0. 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 Sandeep resides in a 3- bedroom home with his family. - Subjective Identification Type Name Identification Reconciled With Medical Record Observations Sandeep was accompanied by his Father, Glenn, for approx 25% of treatment session. Sandeep has yet to try accessing bank account online and/or create a cheat sheet for medical history with his parents. He also continues to require min verbal support w/ sequencing w / laundry. (+) participation and playing of video games a couple hours. Sandeep is mod I w/ bathing including transfers, dressing, g/h tasks, and self-feeding; he has reportedly used debit card and made purchases w/ independence w/ recalling pin. He is using alarms on his cell phone in order to remember taking his medications and to get himself up in the morning. Min v.c. to support execution of laundry. His parents are making his medical appointments and assisting w/ medical paperwork/answering questions for [employer]; the family utilizes a paper calendar in which Sandeep and parents fill-in . He saw PCP who extended out LTD to 03/03/23; getting hearing aide 11/14/22. 08/24/22 = Sandeep reported that he still needs to clean up his room. Sandeep reportedly played video games for an hour 3 x last week; he still needs cueing to wake up in the morning given that alarm clock has not been set-up. He does not wear a watch and uses his phone for time management. CONCIERGE MANAGER has started a journal with him; he has been using it to write down when he takes his meds. Per Father, the alarm function of his cell phone is not working. Thus, they need to take it to an [employer] store. Sandeep denied having a written location for all of his passwords; use of autopayment w/ current support from his parents with managing finances . 07/17/22 = Report of Mother, Malka, assisting with bathing (washing and drying of back and intermittently assisting w / quality of hair washing). Report of sitting down to complete distal LB dressing and to start w/ donning of pants/undergarments. Report of Father/Mother assisting w/ hygiene post-BM every trial d/ t constipation on Sandeep's concern of bleeding. Sandeep does use Miralax intermittently. He has a BM 5 out of 7 days per week per Father. Sandeep denied fall recovery training w/ PT as of yet. Denial of executing of floor push-ups at knee level. Denial of return to deirdre. Parents: Mother = Malka; Father = Glenn Patient Expectation/Goals Return to full-time work at [employer]; independence w/ IADLS/BADLs - Objective Objective Measurements Please refer to below for progress towards meeting established OT goals: Short Term Goals GOALS MET Sandeep will present with increased right upper extremity strength which will support return to work: 1a. 5/5 MMT R sh flexion. * MET 07/24/22 1b. 5/5 MMT R sh extension. * MET 07/24/22 1c. 5/5 MMT R sh abduction. * MET 07/24/22 1d. 5/5 MMT R elbow flexion. *MET 07/24/22 1e. 5/5 MMT R elbow extension . MET 07/24/22 Relay Repairer Goals 1. Sandeep will be modified independent with execution of home exercise program utilizing provided written and visual instructions from therapist with support of his family. 09/21/22 = 75 % met 2. Sandeep will present with improved functional independence; this will be evidenced by the followina. Sandeep will verbally report ability to access banking account via internet address, as well as navigate banking website to locate current balance and/or list of recent purchases. This will be verbally confirmed by parent(s ) and/or demonstrated to clinician. 10/10/22 = GOAL MODIFIED GOALS MET Sandeep is managing dressing set- up on a daily basis (x 7 days) utilizing modifications/ supports as needed with modified independence. *MET Sandeep is managing bathing with modified independence ( utilizing AE/modifications/ supports as needed). *MET 09/14; using shower stool to assist w/ washing of back Sandeep will verbally report use of personal debit card for purchasing of item with ability to recall pin without assistance on more than 2 separate occasions. *MET GOALS D/C 10/10/22 Sandeep will have set-up banking chel on personal cell phone. 03/24 = pt/family preference to access banking acct via internet vs chel on phone - Treatment 2 Descriptor Discussion re: functional activities/current functional status. 1 Descriptor Visual scanning. Divided attention. Executive function. 3-step recall. - Assessment Assessment of Improvement Sandeep has been given return to work date of 03/03/23. He has made some progress with functional independence; however, he is still requiring support w/ sequencing of laundry, navigating grocery store to retrieve items, navigating computer to access personal banking account, and recalling medical history, as well as answering necessary questions for intermediate disability paperwork. He was able to recall sequence of 3 attributes w/ card based activity w/ 1 verbal cue and actively participated in the MVPT-4 without signs of fatigue. The Motor-Free Visual Perception Test (4th ed.) ( MVPT-4) is an individually administered assessment of visual-perceptual skills. The MVPT-4 tasks provide information for five types of visual-perceptual abilities: spatial relationships, visual discrimination, figure-ground, visual closure, and visual memory. Sandeep obtained a Raw Score = 30 which was converted to a Standard Score = 80, Percentile Rank = 9, Age Equivalent = 10-5 with a Standard Score Confidence Interval (90%) of 69.36 to 90. 64. Sandeep's performance was slightly > 1 SD below the mean . Sandeep had difficulties with figure ground items (items 14 to 18) and some of the visual closure and visual memory items. Given continued difficulties with sequencing and memory, outpatient speech is recommended. Continued outpatient OT is recommended to address functional independence w/ ADLs and IADLS . Home Exercise Program 10/11/22 = Access banking account via website versus cell phone. Create 'cheat sheet' for referencing for medical history; have available on current cell phone. 10/05/22 = Download banking chel on personal cell phone. Navigate banking chel. Use self check-out. 09/21/22 = Download banking chel on personal cell phone. Navigate banking chel (log in, locate balance/list of purchases). Use personal debit card w/ recalling pin number - to make purchases. 08/31/22 = Rec doing 1 load of laundry. 08/24/22 = Rec writing down of usernames/passwords. 08/07/22= Discussion of deirdre for 30 minutes 1 to 2 times per week; recommended considering earlier on in the day. Recommended using bathroom versus catheter. 07/18/22 = Discussion of use of long handled sponge for washing of back versus use of hand towel modified for washing of back, robe (for assisting w/ drying post- bathing), shower stool (given no grab bars and cont concern w/ balance). Recommended working w/ PT on transition to floor and floor recovery if concern re: balance w/ modified push-ups. 07/03/22 = Reviewed HEP. Provided w/ TB#4 for personal home use; 2 knots were made on TB to assist w/ hand positioning. Instructed to complete 2 sets of 10 repetitions. Instructed in proper wrist positioning ( neutral wrist position). - Plan Therapy Recommendations Continue with Current Program, Advance per Rehabilitation Protocol Comment 5 weeks Frequency of Treatment Once a Week Therapeutic Contents Active Range of Motion,Client Education,Cognitive Skills Development,Functional Activities,Home Exercise Program,Joint Protection, Manual Therapy,Education, Neurodevelopment Treatment, Neuromuscular Re-Education, Self-Care,Stretching/ Flexibility Activities, Therapeutic Activities, Therapeutic Exercises Suggested Referrals Speech Therapy Electronically Signed by: Madison Vargas OT 10/26/22 6919 If you are in agreement with this Plan of Care, please return a signed and dated copy. I have reviewed this Plan of Care and certify that the skilled therapy services above are required to meet the patient?s needs. Physician Signature Date Printed Name and Credentials Clinical Instructor Signature Printed Name and Credentials
--- NOTE | 2022-11-10 10:44 | OT.OP.DC ---
Visit Care Team Role Provider Type KIMI Robbins Family Provider Non-Staff Primary Care Provider Address: [facility] [address], [address], [place], [address] Email: Attending Provider Referring Provider Address: Phone: Fax: Email: OT Outpatient OT Outpatient Adult Evaluation Start: 06/15/22 09:31 Freq: Status: Active Protocol: Document 06/13/22 15:30 AMS (Rec: 06/15/22 10:19 AMS [id number]) General Information - Adult Visit Information Plan of Care Dates 06/13/22 - 07/25/22 Insurance Information A[employer]; changing to [facility] beginning of July Session Time Visit Start Time 10:15 Visit Stop Time 11:15 Total Visit Minutes 60 Setting Treatment Setting Outpatient Care Visit Type Note Type Initial Evaluation Identification Identification Confirmed Yes Identification Confirmed By Self; parents Goals Treatment Treatment Review of findings; discussion pertaining to OT goals/ treatment and findings. Short Term Goals Short Term Goals 1. Sandeep will present with increased right upper extremity strength which will support return to work: 1a. 5/5 MMT R sh flexion. 1b. 5/5 MMT R sh extension. 1c. 5/5 MMT R sh abduction. 1d. 5/5 MMT R elbow flexion. 1e. 5/5 MMT R elbow extension . Senior Living Goals Senior Living Goals 1. Sandeep will be modified independent with execution of home exercise program utilizing provided written and visual instructions from therapist with support of his family. 2. Based on self-report, Sandeep will be manage dressing set- up on a daily basis (x 7 days) utilizing modifications/ supports as needed with modified independence. 3. Based on self-report, Sandeep will be executing bathing with modified independence ( utilizing AE/modifications/ supports as needed). 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 Medical history significant for intracranial hemorrhage, critical polytrauma, CSF leak, DVT (R LE), recurrent major depressive disorder and social anxiety disorder. Patient is taking Baclofen, 20 mg 3 x daily. Report of L AFO; (-) wearing AFO; use of walker w/ ambulation/gait w/ c/o dizzness w/ s-s. CGA x 1 s-s observed; SBA x 1 s-s w/ decreased safety (w/ pulling up on FWW versus pushing up from armrests). Denial of fall (s) since d/c to home. Sandeep was accompanied by his Mother, Malka, and Father, Glenn, to initial evaluation and treatment. Intake paperwork was completed by Glenn, Sandeep's Father. Sandeep verbally denied UE pain/discomfort. Indication of 2 out of 10 relative to PEG tube placement post- sleeping; 3 out of 10 relative to R big toe, 2 out of 10 L ankle, 1 out of 10 top of L foot. QuickDASH UE Outcome Measure Score = 50.0; QuickDASH Work Module Score = 75.0. 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 Sandeep resides in a 3- bedroom home with his family. Evaluation findings: Current level of function: Parents will assist w/ transfers, bed mobility, bathing, dressing set-up. Decreased engagement in previously identified meaningful activities of daily living (deirdre). He is dependent with community mobility. Denial of fatigue and/or napping. (-) orientation to date. (-) ability to recall personal cell phone number; however, this reportedly is baseline. ( +) orientation to . (+) use of cellphone for messaging and social media. B UE AROM. Able to oppose thumbs bilaterally to each digit pad with EO and EC without difficulties. Right shoulder/ elbow weakness; decreased bilateral gip strength. Correctly identified 38 out of 40 items w/ visual scanning task; not observed to need to reference item 2-digit numbers at bottom of page throughout task completion; (-) erratic scanning noted. (-) frustration noted w/ visual scanning and/or MVPT-4 assessments. The Motor-Free Visual Perception Test (4th ed .) (MVPT-4) is an individually administered assessment of visual-perceptual skills. The MVPT-4 tasks provide information for five types of visual-perceptual abilities: spatial relationships, visual discrimination, figure-ground, visual closure, and visual memory. Sandeep obtained a raw score of 21 which was converted to a standard score of 61 which is > 2 SD below the mean. Sandeep's performance suggests that his visual perceptual abilities are less than/impaired when compared to that of his peers. Sandeep would likely benefit from skilled outpatient OT to address functional independence, right shoulder/ elbow weakness, bilateral welfare officer strength weakness, and his ability to successfully participate in meaningful activities (e.g., dierdre, movie watching) and return to work. Further evaluation of visual perceptual skills is recommended; need to determine if current level is baseline. Plan Length of treatment (weeks) 6 Plan of Care Start Date 06/13/22 Plan of Care End Date 07/25/22 Treatment Frequency Once a Week Therapeutic Contents Active Range of Motion, Adaptive Equipment Education, Client Education,Cognitive Skills Development,Functional Activities,Home Exercise Program,Joint Protection, Education,Neurodevelopment Treatment,Neuromuscular Re- Education,Self-Care,Stretching /Flexibility Activities, Therapeutic Activities, Therapeutic Exercises Functional Wrist/Hand Scan Hand Side Sensory Assessment Sensory Profile2 OT Outpatient Muscle Testing Start: 06/15/22 09:31 Freq: Status: Active Protocol: Document 07/24/22 11:42 AMS (Rec: 07/24/22 11:58 [facility] [id number]) Shoulder Strength Shoulder Manual Muscle Testing Left Flexion 5 Normal Extension 5 Normal Abduction (C5) 5 Normal Adduction 5 Normal External Rotation 4+ Good+ Internal Rotation 5 Normal Right Flexion 5 Normal Extension 5 Normal Abduction (C5) 5 Normal Adduction 5 Normal External Rotation 4+ Good+ Internal Rotation 5 Normal Comments Re-assessed strength 07/24/22. Elbow/Forearm Strength Elbow and Forearm Manual Muscle Testing Left Flexion (C6) 5 Normal Extension (C7) 5 Normal Right Flexion (C6) 5 Normal Extension (C7) 5 Normal Comments Re-assessed strength 07/24/22. Marine Pilot/Hand Strength Marine Pilot/Hand Strength Left Marine Pilot Dynamometer II 65.0 Lateral Pinch Strengh (lbs) 20.0 Palmar Pinch Strength (lbs) 17.0 Tip Pinch Strength (lbs) 15.0 Comments L welfare officer compared to 30-34 y.o. males = 110.4 +/- 21.7# = > 2 SD below the mean L Lateral Pinch compared to 30 -34 y.o. males = 26.2 +/- 5.1# = > 1 SD below the mean L 3-jaw Pinch compared to 30- 34 y.o. males = 25.4 +/- 5.7# = > 1 SD below the mean L Tip Pinch compared to 30-34 y.o. males = 17.6 +/- 4.8# = within 1 SD below the mean Right Marine Pilot Dynamometer II 45.0 Lateral Pinch Strengh (lbs) 19.0 Palmar Pinch Strength (lbs) 18.0 Tip Pinch Strength (lbs) 14.0 Comments R welfare officer Compared to 30-34 y.o. males = 121.8 +/- 22.4# = > 3 SD below the mean R Lateral Pinch compared to 30 -34 y.o. males = 26.4 +/- 4.8# = > 1 SD below the mean R 3-jaw Pinch compared to 30- 34 y.o. males = 24.7 +/- 4.7# = > 1 SD below the mean R Tip Pinch compared to 30-34 y.o. males = 17.6 +/- 6.7# = within 1 SD below the mean OT Outpatient Treatment Note - Adult Start: 06/15/22 09:31 Freq: Status: Active Protocol: Document 11/10/22 10:36 AMS (Rec: 11/10/22 10:43 [facility] [id number]) OT Outpatient Adult Treatment Note Session Time Visit Start Time 09:45 Visit Stop Time 10:30 Total Visit Minutes 45 Visit Information Plan of Care Dates 10/25/22 - 11/29/22 Insurance Information [employer]; changing to [facility] beginning of July Setting Treatment Setting Outpatient Care Visit Type Note Type Treatment Note General Information General Information Sandeep is a 32 year-old right hand dominant male 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 Medical history significant for intracranial hemorrhage, critical polytrauma, CSF leak, DVT (R LE), recurrent major depressive disorder and social anxiety disorder. Patient is taking Baclofen, 20 mg 3 x daily. Report of L AFO; (-) wearing AFO; use of walker w/ ambulation/gait w/ c/o dizzness w/ s-s. CGA x 1 s-s observed; SBA x 1 s-s w/ decreased safety (w/ pulling up on FWW versus pushing up from armrests). Denial of fall (s) since d/c to home. Sandeep was accompanied by his Mother, Malka, and Father, Glenn, to initial evaluation and treatment. Intake paperwork was completed by Glenn, Sandeep's Father. Sandeep verbally denied UE pain/discomfort. Indication of 2 out of 10 relative to PEG tube placement post- sleeping; 3 out of 10 relative to R big toe, 2 out of 10 L ankle, 1 out of 10 top of L foot. QuickDASH UE Outcome Measure Score = 50.0; QuickDASH Work Module Score = 75.0. 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 Sandeep resides in a 3- bedroom home with his family. - Subjective Identification Type Name Identification Reconciled With Medical Record Observations Sandeep was accompanied by his Father, Glenn. Sandeep has accessed his bank account online. He also continues to require min verbal support w/ sequencing w / laundry. (+) participation and playing of video games a couple hours. Sandeep is mod I w/ bathing including transfers, dressing, g/h tasks, and self-feeding; he has reportedly used debit card and made purchases w/ independence w/ recalling pin. He is using alarms on his cell phone in order to remember taking his medications and to get himself up in the morning. Min v.c. to support execution of laundry. His parents are making his medical appointments and assisting w/ medical paperwork/answering questions for [employer]; the family utilizes a paper calendar in which Sandeep and parents fill-in . He saw PCP who extended out LTD to 03/03/23; getting hearing aide 11/14/22. 08/24/22 = Sandeep reported that he still needs to clean up his room. Sandeep reportedly played video games for an hour 3 x last week; he still needs cueing to wake up in the morning given that alarm clock has not been set-up. He does not wear a watch and uses his phone for time management. THREAD WEAVER has started a journal with him; he has been using it to write down when he takes his meds. Per Father, the alarm function of his cell phone is not working. Thus, they need to take it to an [employer] store. Sandeep denied having a written location for all of his passwords; use of autopayment w/ current support from his parents with managing finances . 07/17/22 = Report of Mother, Malka, assisting with bathing (washing and drying of back and intermittently assisting w / quality of hair washing). Report of sitting down to complete distal LB dressing and to start w/ donning of pants/undergarments. Report of Father/Mother assisting w/ hygiene post-BM every trial d/ t constipation on Sandeep's concern of bleeding. Sandeep does use Miralax intermittently. He has a BM 5 out of 7 days per week per Father. Sandeep denied fall recovery training w/ PT as of yet. Denial of executing of floor push-ups at knee level. Denial of return to deirdre. Parents: Mother = Malka; Father = Glenn Patient Expectation/Goals Return to full-time work at [employer]; independence w/ IADLS/BADLs - Objective Objective Measurements Please refer to below for progress towards meeting established OT goals: Short Term Goals GOALS MET Sandeep will present with increased right upper extremity strength which will support return to work: 1a. 5/5 MMT R sh flexion. * MET 07/24/22 1b. 5/5 MMT R sh extension. * MET 07/24/22 1c. 5/5 MMT R sh abduction. * MET 07/24/22 1d. 5/5 MMT R elbow flexion. *MET 07/24/22 1e. 5/5 MMT R elbow extension . MET 07/24/22 Senior Living Goals GOALS MET Sandeep is managing dressing set- up on a daily basis (x 7 days) utilizing modifications/ supports as needed with modified independence. *MET Sandeep is managing bathing with modified independence ( utilizing AE/modifications/ supports as needed). *MET 09/14; using shower stool to assist w/ washing of back Sandeep will verbally report use of personal debit card for purchasing of item with ability to recall pin without assistance on more than 2 separate occasions. *MET Mod independent with execution of home exercise program utilizing provided written and visual instructions from therapist with support of his family. *MET 11/10/22 Accessed banking account via internet address. This will be verbally confirmed by parent. Report of checking paper info received in mail w/ online account. *MEt 11/10/22 GOALS D/C 10/10/22 Sandeep will have set-up banking chel on personal cell phone. 03/24 = pt/family preference to access banking acct via internet vs cehl on phone - Treatment 2 Descriptor Discussion re: functional activities/current functional status. 1 Descriptor Visual scanning. Divided attention. Executive function. 5-step recall. - Assessment Assessment of Improvement QuickDASH UE Outcome Measure Score = 15.91 vs initial 50.00 ; Father, Glenn, assisted Sandeep as needed w/ completion of form. Sandeep reportedly accessed personal banking account via laptop/personal computer. He is reportedly having some difficulties w/ swallowing; thus, recommend pursuing outpatient speech therapy for swallowing and additional support given memory deficits and desire to return to work. Sandeep also reportedly has follow-up w/ [facility]; thus, recommend inquiring about vocational rehab to support transition back to work. Sandeep has done well w/ recall of 3- steps; when given greater then 3+ steps he has required verbal/visual cues to assist. He also reportedly has difficulties w/ memory recall; thus, is utilizing lists/ phone and other tools. Patient in agreement for d/c from OT. Recommend pursuing TH[employer] WE[employer]ER and vocational rehab given desire to return to work at [employer]. Home Exercise Program 10/11/22 = Access banking account via website versus cell phone. Create 'cheat sheet' for referencing for medical history; have available on current cell phone. 10/05/22 = Download banking chel on personal cell phone. Navigate banking chel. Use self check-out. 09/21/22 = Download banking chel on personal cell phone. Navigate banking chel (log in, locate balance/list of purchases). Use personal debit card w/ recalling pin number - to make purchases. 08/31/22 = Rec doing 1 load of laundry. 08/24/22 = Rec writing down of usernames/passwords. 08/07/22= Discussion of deirdre for 30 minutes 1 to 2 times per week; recommended considering earlier on in the day. Recommended using bathroom versus catheter. 07/18/22 = Discussion of use of long handled sponge for washing of back versus use of hand towel modified for washing of back, robe (for assisting w/ drying post- bathing), shower stool (given no grab bars and cont concern w/ balance). Recommended working w/ PT on transition to floor and floor recovery if concern re: balance w/ modified push-ups. 07/03/22 = Reviewed HEP. Provided w/ TB#4 for personal home use; 2 knots were made on TB to assist w/ hand positioning. Instructed to complete 2 sets of 10 repetitions. Instructed in proper wrist positioning ( neutral wrist position). - Plan Therapy Recommendations Discharge from Occupational Therapy Suggested Referrals Speech Therapy Other Referrals Vocational rehab
== END 2022-11-17 12:22 | disposition home or self-care (01) ==
LOC: OT 09:45
PROVIDERS: Absent Provider Nurse Practitioner; Family Provider Nurse Practitioner; PCP Nurse Practitioner
DX: S06.9XAA Unspecified intracranial injury with loss of consciousness status unknown, initial encounter (principal); R53.1 Weakness
CPT/HCPCS: 97110; 97166; 97530

== ENCOUNTER 2022-12-04 13:28 | Emergency (ER) | payer OTHER, MEDICAID, SELFPAY ==
--- NOTE | 2022-12-04 13:35 | DI.US.S_ITS ---
PROCEDURE: US PERIPH VENOUS LOW EXTREM BI INDICATIONS: SWELLING. HISTORY OF DEEP VEIN THROMBOSIS TECHNIQUE: Real-time imaging, as well as color and pulse Doppler interrogation, were performed of the deep veins of both legs from the inguinal ligament to the popliteal fossa, with documentation of the visualized calf veins. COMPARISON: None. FINDINGS: Right: The common femoral, femoral, popliteal, and the visualized calf veins are normally compressible, and free of intraluminal thrombus. Color and pulse Doppler demonstrate normal phasic intravascular flow. There is normal augmentation response to distal compression maneuver. Left: The common femoral, femoral, popliteal, and the visualized calf veins are normally compressible, and free of intraluminal thrombus. Color and pulse Doppler demonstrate normal phasic intravascular flow. There is normal augmentation response to distal compression maneuver. IMPRESSION: No DVT in lower extremities. Dictated by: Dennise Cantu M.D. on 12/04/2022 at 15:11 Approved by: Dennise Cantu M.D. on 12/04/2022 at 15:11
[2022-12-04 13:40] VITALS: BP 160/71; PULSE 95; RESP 17; TEMP 36.6; O2SAT 98
--- NOTE | 2022-12-04 15:56 | ED.EXTPRO ---
HPI - Extremity Problem <Guero Ty PA-C - Last Filed: 12/04/22 17:27> General Chief complaint: Extremity Problem,Nontraumatic Stated complaint: sent by Gwen MAIER/swelling in feet/legs HX DVT Time Seen by Provider: 12/04/22 13:35 Source: patient and family Mode of arrival: Ambulatory History of Present Illness HPI Narrative: 32-year-old male with past medical history TBI presents to the ED with 2 days of bilateral foot and ankle swelling. Patient is here with his parents. Patient was hospitalized for 2 months after a TBI late last year, patient also has a history of a DVT during that time. Patient was on blood thinners for some time, however is not on it currently. Patient states that he noticed bilateral lower leg swelling mainly in his feet and ankles since yesterday. Patient states that there is no pain, however his feet feel weak. Patient denies fever, chills, chest pain, shortness of breath, dysuria, abdominal pain, lightheadedness, dizziness, syncope. Patient's parents do state that he drinks a lot of soda daily, consumes little water. Related Data Home Medications Medication Instructions Recorded Confirmed amlodipine 10 mg tablet 10 mg PO DAILY 12/04/22 12/04/22 baclofen 20 mg tablet 10 mg PO 3XD 12/04/22 12/04/22 sertraline 100 mg tablet 100 mg PO BID 12/04/22 12/04/22 Allergies Allergy/AdvReac Type Severity Reaction Status Date / Time No Known Drug Allergies Allergy Verified 12/04/22 13:44 Review of Systems <Guero Ty PA-C - Last Filed: 12/04/22 17:27> Review of Systems ROS Unobtainable: All systems reviewed & are unremarkable except as noted in HPI and below Constitutional Constitutional: Denies chills, Denies fatigue, Denies fever(s), Denies frequent falls, Denies lethargy and Denies weakness Eyes Eyes: Denies change in vision, Denies eye discharge, Denies irritation and Denies loss of vision ENT Ears, Nose, Mouth, and Throat: Denies change in voice, Denies dizziness, Denies neck pain, Denies sore throat and Denies throat swelling Cardiovascular Cardiovascular: Denies chest pain, Denies irregular heart rhythm, Reports leg edema, Denies lightheadedness, Denies palpitations, Denies dyspnea, Denies dyspnea on exertion and Denies orthopnea Respiratory Respiratory: Denies cough, Denies dyspnea, Denies dyspnea on exertion and Denies wheezing Gastrointestinal Gastrointestinal: Denies abdominal pain, Denies change in bowel habits, Denies diarrhea, Denies nausea and Denies vomiting Genitourinary Genitourinary: Denies hematuria, Denies flank pain, Denies urinary incontinence and Denies urinary urgency Musculoskeletal Musculoskeletal: Denies back pain, Denies muscle weakness, Denies neck pain, Denies numbness and Denies tingling Integumentary/Breasts Skin/Breast: Denies pruritus, Denies erythema, Denies rash and Denies wounds Neurologic Neurologic: Denies behavioral changes, Denies confusion, Denies dizziness, Denies frequent falls, Denies loss of vision, Denies numbness, Denies tingling and Denies weakness Psychiatric Psychiatric: Denies anxiety, Denies behavioral changes, Denies confusion, Denies depression, Denies homicidal ideation and Denies suicidal ideation Endocrine Endocrine: Denies fatigue, Denies flushing and Denies palpitations Hematologic/Lymphatic Hematologic/Lymphatic: Denies easy bruising Allergic/Immunologic Allergic/Immunologic: Denies urticaria, Denies throat swelling and Denies wheezing Patient History <Guero Ty PA-C - Last Filed: 12/04/22 17:27> Social History Smoking Status: Never smoker Smoking Status: Never smoker alcohol intake frequency: other Substance Use Type: does not use Exam <Guero Ty PA-C - Last Filed: 12/04/22 17:27> Narrative Exam Narrative: Const General:?cooperative, healthy appearing and comfortable [facility] Head:?normal to inspection Ears:?hearing grossly normal bilaterally Nose:?external nose normal Face and sinus:?normal facial exam and sinuses nontender Mouth:?oral mucosae normal Throat:?posterior oropharynx normal Eyes General:?appearance normal, both eyes and all related structures Neck Neck:?normal visual inspection and no lymphadenopathy noted Resp Effort & Inspection:?normal respiratory effort Auscultation:?clear to auscultation bilaterally Cardio Rate:?regular rate Rhythm:?regular rhythm Musculoskeletal There is bilateral foot and ankle swelling. There is some erythema bilaterally. Skin is intact. Patient is neurovascularly intact. Neuro General:?patient alert, patient awake and patient oriented x3 Initial Vital Signs Initial Vital Signs: Vital Signs Temperature 98 F 12/04/22 13:40 Pulse Rate 95 H 12/04/22 13:40 Respiratory Rate 17 12/04/22 13:40 Blood Pressure 160/71 H 12/04/22 13:40 Pulse Oximetry 98 12/04/22 13:40 Oxygen Delivery Method Room Air 12/04/22 13:40 <Mariam Alvarez MD - Last Filed: 12/04/22 19:27> Initial Vital Signs Initial Vital Signs: Vital Signs Temperature 98 F 12/04/22 13:40 Pulse Rate 95 H 12/04/22 13:40 Respiratory Rate 17 12/04/22 13:40 Blood Pressure 160/71 H 12/04/22 13:40 Pulse Oximetry 98 12/04/22 13:40 Oxygen Delivery Method Room Air 12/04/22 13:40 Course <Guero Ty PA-C - Last Filed: 12/04/22 17:27> Orders Ordered: ED Orders 12/04/22 13:35 US periph venous low extrem bi Stat 12/04/22 14:05 BNP [NT-proBNP (BNP-Adult 18+)] Stat CBC Auto Diff [Complete Blood Count AUTO DIFF] Stat CMP [Comprehensive Metabolic Panel] Stat Troponin I Stat 12/04/22 15:57 CXR [XR chest 2V] Stat EKG-12 Lead Stat Vital Signs Vital signs: Vital Signs - 8 hr 12/04/22 13:40 12/04/22 17:20 Temperature 98 F Pulse Rate 95 H 78 Respiratory Rate 17 15 Blood Pressure 160/71 H 145/80 H Pulse Oximetry 98 99 Oxygen Delivery Method Room Air Room Air <Mariam Alvarez MD - Last Filed: 12/04/22 19:27> Orders Ordered: ED Orders 12/04/22 13:35 US periph venous low extrem bi Stat 12/04/22 14:05 BNP [NT-proBNP (BNP-Adult 18+)] Stat CBC Auto Diff [Complete Blood Count AUTO DIFF] Stat CMP [Comprehensive Metabolic Panel] Stat Troponin I Stat 12/04/22 15:57 CXR [XR chest 2V] Stat EKG-12 Lead Stat Vital Signs Vital signs: Vital Signs - 8 hr 12/04/22 13:40 12/04/22 17:20 Temperature 98 F Pulse Rate 95 H 78 Respiratory Rate 17 15 Blood Pressure 160/71 H 145/80 H Pulse Oximetry 98 99 Oxygen Delivery Method Room Air Room Air MDM - Extremity (Nontraumatic) <Guero Ty PA-C - Last Filed: 12/04/22 17:27> Lab Data 12/04/22 14:05 12/04/22 14:05 Labs: Lab Results 12/04/22 12/04/22 12/04/22 Range/Units 14:05 14:05 14:05 WBC 11.6 H (4.5-11.0) X10^3/uL RBC 4.92 (4.5-5.9) X10^6/uL Hgb 14.4 (13.5-17.5) g/dL Hct 42.3 (41-53) % MCV 85.9 (80-100) fL MCH 29.4 (26-34) PG MCHC 34.2 (30-36) % RDW 13.2 (11.6-14.8) % Plt Count 293 (150-400) X10^3/uL Neut % (Auto) 77.2 H (50-75) % Lymph % (Auto) 10.6 L (25-40) % [place] % (Auto) 9.4 (3-14) % Eos % (Auto) 2.4 (2-4) % Baso % (Auto) 0.4 (0-2) % Neut # (Auto) 9000 H (4042-0696) /uL Lymph # (Auto) 1200 (0849-8667) /uL [place] # (Auto) 1100 H (0-900) /uL Eos # (Auto) 300 (0-450) /uL Baso # (Auto) 0 (0-100) /uL Sodium 137 (137-145) mmol/L Potassium 4.0 (3.4-5.1) mmol/L Chloride 100 (98-107) mmol/L Carbon Dioxide 29 (22-32) mmol/L BUN 9 (9-20) mg/dL Creatinine 0.67 (0.66-1.25) mg/dL Estimated GFR > 60 (>60) mL/min BUN/Creatinine Ratio 13.4 (6-22) Glucose 115 H (70-100) mg/dL Calcium 9.4 (8.4-10.2) mg/dL Total Bilirubin 0.8 (0.2-1.3) mg/dL AST 21 (17-59) IU/L ALT 28 (<50) IU/L Alkaline Phosphatase 103 (38-126) U/L Troponin I < 0.012 (0.01-0.034) ng/mL NT-Pro-B Natriuret Pep < 20 (<125) pg/mL Total Protein 7.9 (6.3-8.2) g/dL Albumin 4.3 (3.5-5.0) g/dL Globulin 3.6 (1.7-4.1) g/dL Albumin/Globulin Ratio 1.2 (1.0-2.8) MDM Narrative Medical decision making narrative: 32-year-old male with past medical history TBI presents to the ED with 2 days of bilateral foot and ankle swelling. Concern for DVT versus CHF versus nephropathy versus venous insufficiency versus cellulitis versus other. Will obtain EKG, chest x-ray, labs, troponin, BNP. Will reassess. Workup largely unremarkable. EKG shows tachycardia, otherwise normal EKG. No acute ST-T changes. Chest x-ray with no acute cardiopulmonary abnormalities. Labs within normal limits. BNP and troponin within normal limits. It turns out that patient is on 10 mg of amlodipine daily for blood pressure control. It is likely that patient's leg swelling might be contributed by amlodipine. Recommend patient stay well hydrated, consume water but no sodas to limit sodium intake. Recommend elevation and rest for the next couple of days. Recommend follow-up with PCP as soon as possible. ED return precautions were discussed with patient and patient's parents. They verbalized understanding. Medical records reviewed: Yes <Mariam Alvarez MD - Last Filed: 12/04/22 19:27> Lab Data Labs: Lab Results 12/04/22 12/04/22 12/04/22 Range/Units 14:05 14:05 14:05 WBC 11.6 H (4.5-11.0) X10^3/uL RBC 4.92 (4.5-5.9) X10^6/uL Hgb 14.4 (13.5-17.5) g/dL Hct 42.3 (41-53) % MCV 85.9 (80-100) fL MCH 29.4 (26-34) PG MCHC 34.2 (30-36) % RDW 13.2 (11.6-14.8) % Plt Count 293 (150-400) X10^3/uL Neut % (Auto) 77.2 H (50-75) % Lymph % (Auto) 10.6 L (25-40) % [place] % (Auto) 9.4 (3-14) % Eos % (Auto) 2.4 (2-4) % Baso % (Auto) 0.4 (0-2) % Neut # (Auto) 9000 H (0009-7937) /uL Lymph # (Auto) 1200 (8017-8717) /uL [place] # (Auto) 1100 H (0-900) /uL Eos # (Auto) 300 (0-450) /uL Baso # (Auto) 0 (0-100) /uL Sodium 137 (137-145) mmol/L Potassium 4.0 (3.4-5.1) mmol/L Chloride 100 (98-107) mmol/L Carbon Dioxide 29 (22-32) mmol/L BUN 9 (9-20) mg/dL Creatinine 0.67 (0.66-1.25) mg/dL Estimated GFR > 60 (>60) mL/min BUN/Creatinine Ratio 13.4 (6-22) Glucose 115 H (70-100) mg/dL Calcium 9.4 (8.4-10.2) mg/dL Total Bilirubin 0.8 (0.2-1.3) mg/dL AST 21 (17-59) IU/L ALT 28 (<50) IU/L Alkaline Phosphatase 103 (38-126) U/L Troponin I < 0.012 (0.01-0.034) ng/mL NT-Pro-B Natriuret Pep < 20 (<125) pg/mL Total Protein 7.9 (6.3-8.2) g/dL Albumin 4.3 (3.5-5.0) g/dL Globulin 3.6 (1.7-4.1) g/dL Albumin/Globulin Ratio 1.2 (1.0-2.8) Discharge Plan Departure Patient Disposition: Home Clinical Impression: Lower extremity edema Instructions: DI for Peripheral Edema -- Bilateral Activity Restrictions/Additional Instructions: You were evaluated in the ED today for leg swelling. Your chest x-ray, EKG, labs were normal. It is likely that your bilateral leg swelling could be from either a side-effect from the amlodipine versus water retention from consuming foods containing too much sodium such as sodas, processed meats. Please continue to keep your feet elevated above heart level, stay well hydrated with water for the next few days. Please follow-up with your PCP as soon as possible. Return to the ED if you have worsening symptoms, chest pain, shortness of breath. Prescriptions: No Action sertraline 100 mg tablet 100 mg PO BID baclofen 20 mg tablet 10 mg PO 3XD amlodipine 10 mg tablet 10 mg PO DAILY Referrals: Niyah Rodriguez ARNP [Primary Care Provider] - Stand Alone Forms: Patient Portal/API <Mariam Alvarez MD - Last Filed: 12/04/22 19:27> Cosign ED Attending Cosignature Attestation: I do not see this patient. I was available at all times for consultation.
--- NOTE | 2022-12-04 15:57 | DI.RAD.S_ITS ---
PROCEDURE: XR CHEST 2V INDICATIONS: Bilateral leg swelling TECHNIQUE: 2 views of the chest were acquired. COMPARISON: [facility], , PERIPH VENOUS LOW EXTREM BI, 12/04/2022, 14:17. FINDINGS: Surgical changes and devices: None. Lungs and pleura: An incomplete inspiratory result is noted, causing a crowded appearance to the lung markings. No focal infiltrates are seen. No pneumothorax or significant pleural effusions are seen. Mediastinum: Mediastinal contours are normal. Heart size is normal. Bones and chest wall: No suspicious bony abnormalities. Soft tissues appear unremarkable. Residual barium can be seen within the transverse colon. IMPRESSION: Limited portable chest examination, without a significant cardiopulmonary abnormality identified. Dictated by: Santiago Douglas M.D. on 12/04/2022 at 15:50 Approved by: Santiago Douglas M.D. on 12/04/2022 at 15:51
[2022-12-04 16:18] LABS: Add Manual Diff / Slide Review NO; Basophils Absolute Auto 0 /uL (0-100); Basophils Percent Auto 0.4 % (0-2); Eosinophils Absolute Auto 300 /uL (0-450); Eosinophils Percent Auto 2.4 % (2-4); Hematocrit 42.3 % (41-53); Hemoglobin 14.4 g/dL (13.5-17.5); Lymphocytes Absolute Auto 1200 /uL (1100-4500); Lymphocytes Percent Auto 10.6 % (25-40); Mean Corpuscular HGB Conc 34.2 % (30-36); Mean Corpuscular Hemoglobin 29.4 PG (26-34); Mean Corpuscular Volume 85.9 fL (80-100); Monocytes Absolute Auto 1100 /uL (0-900); Monocytes Percent Auto 9.4 % (3-14); Neutrophils Absolute Auto 9000 /uL (1500-7000); Neutrophils Percent Auto 77.2 % (50-75); Platelet Count 293 X10^3/uL (150-400); Red Blood Cell Count 4.92 X10^6/uL (4.5-5.9); Red Cell Distribution Width 13.2 % (11.6-14.8); White Blood Cell Count 11.6 X10^3/uL (4.5-11.0)
[2022-12-04 16:28] LABS: Alanine Aminotransferase 28 IU/L (<50); Albumin 4.3 g/dL (3.5-5.0); Albumin Globulin Ratio 1.2 (1.0-2.8); Alkaline Phosphatase 103 U/L (38-126); Aspartate Aminotransferase 21 IU/L (17-59); BUN Creatinine Ratio 13.4 (6-22); Bilirubin Total 0.8 mg/dL (0.2-1.3); Blood Urea Nitrogen 9 mg/dL (9-20); Calcium 9.4 mg/dL (8.4-10.2); Carbon Dioxide 29 mmol/L (22-32); Chloride 100 mmol/L (98-107); Estimated Glomerular Filt Rate > 60 mL/min (>60); Globulin 3.6 g/dL (1.7-4.1); Glucose 115 mg/dL (70-100); HEMOLYSIS < 15 (0-50); Sodium 137 mmol/L (137-145); Total Protein 7.9 g/dL (6.3-8.2)
[2022-12-04 16:37] LABS: NT-proBNP (BNP-Adult 18+) < 20 pg/mL (<125)
[2022-12-04 16:40] LABS: Troponin I < 0.012 ng/mL (0.01-0.034)
[2022-12-04 17:20] VITALS: BP 145/80; PULSE 78; RESP 15; O2SAT 99
== END 2022-12-04 17:22 | disposition home or self-care (01) ==
PROVIDERS: Emergency Provider Student in an Organized Health Care Education/Training Program; Family Provider Nurse Practitioner; PCP Nurse Practitioner
DX: R60.0 Localized edema (principal); R07.9 Chest pain, unspecified
CPT/HCPCS: 36415; 71046; 80053; 83880; 84484; 85025; 93005; 93010; 93970; 99284

== ENCOUNTER → 2023-03-19 09:40 | Outpatient (CLI) | payer OTHER, MEDICAID, SELFPAY ==
--- NOTE | 2023-03-19 | DI.RAD.S_ITS ---
PROCEDURE: FL BARIUM SWALLOW W SPEECH INDICATIONS: Dysphagia, unspecified COMPARISON: None. TECHNIQUE: Examination was conducted in conjunction with speech pathology per standard protocol. In the lateral projection, filming was performed of the patient swallowing. AP projection filming may also be performed with patient swallowing. COMPARISON: FINDINGS: Function: No aspiration. Moderate to severe esophageal dysmotility. Morphology: No cricopharyngeal bar is identified. No cervical esophageal webs. No Zenker's diverticulum. No strictures. IMPRESSION: No aspiration. Please see speech pathologist's report for further discussion. Dictated by: Woody Ross M.D. on 03/19/2023 at 16:25 Approved by: Woody Ross M.D. on 03/19/2023 at 16:26
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
--- NOTE | 2023-03-19 14:03 | ST-OP ANOTE ---
Physical, Occupational & Speech Therapy At [facility] Speech Therapy Note Following the MBS, Anirudh, his father and I were reviewing the results. Anirudh indicated he was feeling dizzy.His father assisted him into the fluoroscopy chair to sit down. Anirudh appeared diaphoretic, sweating and not responding appropriately. Mobile juice as provided to Anirudh. A Rapid Response was called after confirming with Anirudh's father. Anirudh was taken to the ED with his father in attendance.
== END ==
PROVIDERS: Family Provider Nurse Practitioner; PCP Nurse Practitioner; Referring Provider Nurse Practitioner; Visit Provider Nurse Practitioner
DX: K22.4 Dyskinesia of esophagus (principal); R13.10 Dysphagia, unspecified
CPT/HCPCS: 74230; 92611

== ENCOUNTER 2023-03-19 10:32 | Emergency (ER) | payer OTHER, MEDICAID, SELFPAY ==
[2023-03-19 10:36] VITALS: BP 131/79; PULSE 75; RESP 20; O2SAT 99; BMI 39.6
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
== END 2023-03-19 11:07 | disposition home or self-care (01) ==
PROVIDERS: Emergency Provider Family Medicine Addiction Medicine; Family Provider Nurse Practitioner; PCP Nurse Practitioner
DX: R55 Syncope and collapse (principal); R07.9 Chest pain, unspecified; K22.4 Dyskinesia of esophagus; R13.10 Dysphagia, unspecified
CPT/HCPCS: 74230; 92611; 93005; 93010; 99281

== ENCOUNTER 2023-03-21 10:30 | Outpatient (RCR) | payer OTHER, MEDICAID, SELFPAY ==
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
--- NOTE | 2023-02-07 12:01 | ST.OPTN ---
Visit Care Team Role Provider Type KIMI Robbins Attending Provider Non-Staff Family Provider Primary Care Provider Referring Provider Address: [facility] [address], [address], [place], [address] STAKER SURVEYING Treatment Note STAKER SURVEYING Treatment Note Start: 02/07/23 11:51 Freq: Status: Active Protocol: Document 02/07/23 11:51 MA (Rec: 02/07/23 12:01 CODY [id number]) Speech Pathology Treatment Note Session Time Visit Start Time 13:30 Visit Stop Time 14:30 Total Visit Minutes 60 Visit Information Visit Number 2 Plan of Care Dates 02/02/23-05/05/22 Setting Treatment Setting Outpatient Care Next Note Type Next Note Type Treatment Note General Information Patient History Pt is a 32 year old male 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 Pt was recently seen by ST in this outpatient facility, however would like to continue to improve cognitive/ linguistic abilities in order to return to work. According to his dad, who accompanied him, the pt was found down after falling while outside on porch. Pt was unconscious and emergency responders were called. Pt was air lifted to [facility] where he remained in a coma for 16 days. Pt underwent a craniotomy to remove an epidural hematoma. Initial Dalia score wa 2. Pt remained in ICU until 05/14/22 and subsequently entered inpatient rehab at [facility] and was discharged on 05/30/22. Out patient OT, PT and ST therapies were recommended. He lives at home with his parents. He was working at [employer] prior to his accident and wishes to return to work soon. Subjective Observations/Patient Presentation Pt arrived to therapy with dad . Pt dad accompained Pt at the beginning of therapy session and left mid way through. Dad reports he left a voicemail with Pt PCP in regards to swallow eval order. Pt alert and attentive during session. Objective Short Term Goals STG 1: Patient will recall new information, up to 5 elements , with 80% of opportunities and occasional verbal cues and visual cues in order to promote independence. STG 2: Patient will sequence 4 -6 functional steps with 80% accuracy with mild verbal and visual cues in order to promote independence and safety with ADLs. STG 3: Patient will demonstrate increase short term recall for functional/ daily life information with 90 % of opportunities given environmental modifications implemented and by using visual aids in order to increase safety during ADLs. STG 4: Pt will complete moderately difficult problem- solving tasks independently with use of strategies provided without cues/ assistance at 80% opportunities. Snf Goals LTG 1: Patient will increase memory skills using compensatory strategies as trained, with implementation of environmental modifications , using visual/auditory aids as needed in order to promote independence. LTG 2: Patient will increase functional problem solving skills with occasional Verbal Cues and occasional Visual cues in order to promote independence Treatment Activities Pt seen for 1:1 cognitive- linguistic therapy. ST assessed activities Pt does at home and other responsibilities he is independent with. Pt reports his dad makes sure he takes his medications, he helps with meals, has autopay for a couple bills, goes to the bank to get money off his card, dad helps with remembering appointments, not driving, does own laundry and pays for food occasionally. Pt dad reports Pt has difficulties making decisions and will rely on other to make decision. ST assessed problem solving utilizing money management task in order to promote independence. Pt complete money task with 90% accuracy requiring mild verbal cues to utilize compensatory strategy of scrap paper. ST assessed word finding utilizing word finding task involve specific letters and categorys in order to enhance word finding skills. Pt completed word finding task with 90% accuracy requiring mild cues. ST provided Pt homework consisting of word finding task. Plan Treatment Emphasis Next Session Go over CLQT, deduction puzzles, memory recall
--- NOTE | 2023-02-14 11:31 | ST.OPTN ---
Visit Care Team Role Provider Type KIMI Robbins Attending Provider Non-Staff Family Provider Primary Care Provider Referring Provider Address: [facility] [address], [address], [place], [address] CATALOGING ASSISTANT Treatment Note CATALOGING ASSISTANT Treatment Note Start: 02/07/23 11:51 Freq: Status: Active Protocol: Document 02/14/23 11:25 MA (Rec: 02/14/23 11:31 MA [id number]) Speech Pathology Treatment Note Session Time Visit Start Time 10:30 Visit Stop Time 11:30 Total Visit Minutes 60 Visit Information Visit Number 3 Plan of Care Dates 02/02/23-05/05/22 Setting Treatment Setting Outpatient Care Visit Type Note Type Treatment Note Next Note Type Next Note Type Treatment Note General Information Patient History Pt is a 32 year old male 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 Pt was recently seen by ST in this outpatient facility, however would like to continue to improve cognitive/ linguistic abilities in order to return to work. According to his dad, who accompanied him, the pt was found down after falling while outside on porch. Pt was unconscious and emergency responders were called. Pt was air lifted to [facility] where he remained in a coma for 16 days. Pt underwent a craniotomy to remove an epidural hematoma. Initial [place] score wa 2. Pt remained in ICU until 05/14/22 and subsequently entered inpatient rehab at [facility] and was discharged on 05/30/22. Out patient OT, PT and ST therapies were recommended. He lives at home with his parents. He was working at [employer] prior to his accident and wishes to return to work soon. Subjective Observations/Patient Presentation Pt arrived to therapy with dad . Pt dad accompained Pt at the beginning of therapy session. Dad reports he left a voicemail with Pt PCP in regards to swallow eval order. Pt alert and attentive during session. Objective Short Term Goals STG 1: Patient will recall new information, up to 5 elements , with 80% of opportunities and occasional verbal cues and visual cues in order to promote independence. STG 2: Patient will sequence 4 -6 functional steps with 80% accuracy with mild verbal and visual cues in order to promote independence and safety with ADLs. STG 3: Patient will demonstrate increase short term recall for functional/ daily life information with 90 % of opportunities given environmental modifications implemented and by using visual aids in order to increase safety during ADLs. STG 4: Pt will complete moderately difficult problem- solving tasks independently with use of strategies provided without cues/ assistance at 80% opportunities. Telegraph Inspector Goals LTG 1: Patient will increase memory skills using compensatory strategies as trained, with implementation of environmental modifications , using visual/auditory aids as needed in order to promote independence. LTG 2: Patient will increase functional problem solving skills with occasional Verbal Cues and occasional Visual cues in order to promote independence Treatment Activities Memory, word finding, problem solving Assessment Patient Response to Treatment Excellent Assessment of Overall Progress Improving Assessment of Improvement Pt seen for 1:1 cognitive- linguistic therapy. Pt dad asked questions in regards to patient returning to work at [employer] and concerns it may be too much for Pt in regards to making decisions and getting frustrated when he can 't do something. 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 ST assessed word finding utilizing word finding task involve specific letters and categorys in order to enhance word finding skills. Pt completed word finding task with 91% accuracy requiring mild cues. ST assessed memory recall utilizing delayed recall task with 5 related words with use of memory strategies such as word associations and visualization . Pt with delayed recall time of 10 sec and display time of stimulus 30 sec. Pt recalled 5 related words with delayed recall time with 60% accuracy and able to self correct independently x1. ST reviewed deduction puzzle and provided to Pt to complete for homework to work on problem solving. Reviewed with Patient Home Exercise Program Patient/Caregiver Understanding Excellent Plan Length of Session 60 Minutes Treatment Emphasis Next Session Go over CLQT, deduction puzzles, memory recall
--- NOTE | 2023-02-21 14:23 | ST.OPTN ---
Visit Care Team Role Provider Type KIMI Robbins Attending Provider Non-Staff Family Provider Primary Care Provider Referring Provider Address: [facility] [address], [address], [place], [address] DISC PAD GRINDER Treatment Note DISC PAD GRINDER Treatment Note Start: 02/07/23 11:51 Freq: Status: Active Protocol: Document 02/21/23 14:16 MA (Rec: 02/21/23 14:23 MA [id number]) Speech Pathology Treatment Note Session Time Visit Start Time 10:30 Visit Stop Time 11:30 Total Visit Minutes 60 Visit Information Visit Number 4 Plan of Care Dates 02/02/23-05/05/22 Setting Treatment Setting Outpatient Care Visit Type Note Type Treatment Note Next Note Type Next Note Type Treatment Note General Information Patient History Pt is a 32 year old male 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 Pt was recently seen by ST in this outpatient facility, however would like to continue to improve cognitive/ linguistic abilities in order to return to work. According to his dad, who accompanied him, the pt was found down after falling while outside on porch. Pt was unconscious and emergency responders were called. Pt was air lifted to [facility] where he remained in a coma for 16 days. Pt underwent a craniotomy to remove an epidural hematoma. Initial [place] score wa 2. Pt remained in ICU until 05/14/22 and subsequently entered inpatient rehab at [facility] and was discharged on 05/30/22. Out patient OT, PT and ST therapies were recommended. He lives at home with his parents. He was working at [employer] prior to his accident and wishes to return to work soon. Subjective Observations/Patient Presentation Pt arrived to therapy with dad . Pt dad accompained Pt at the beginning of therapy session. ST communicated that she left Pt PCP a message regarding recommendation for MBS, however Pt dad reports they have not heard about scheduling one yet. Pt alert and attentive during session. Objective Short Term Goals STG 1: Patient will recall new information, up to 5 elements , with 80% of opportunities and occasional verbal cues and visual cues in order to promote independence. STG 2: Patient will sequence 4 -6 functional steps with 80% accuracy with mild verbal and visual cues in order to promote independence and safety with ADLs. STG 3: Patient will demonstrate increase short term recall for functional/ daily life information with 90 % of opportunities given environmental modifications implemented and by using visual aids in order to increase safety during ADLs. STG 4: Pt will complete moderately difficult problem- solving tasks independently with use of strategies provided without cues/ assistance at 80% opportunities. Prison Goals LTG 1: Patient will increase memory skills using compensatory strategies as trained, with implementation of environmental modifications , using visual/auditory aids as needed in order to promote independence. LTG 2: Patient will increase functional problem solving skills with occasional Verbal Cues and occasional Visual cues in order to promote independence Treatment Activities Memory, word finding, problem solving Assessment Patient Response to Treatment Excellent Assessment of Overall Progress Improving Assessment of Improvement Pt seen for 1:1 cognitive- linguistic therapy. Pt returned deduction puzzle, however not fully completed d/ t Pt reporting confusion. ST assessed problem solving utilizing deduction puzzle. Pt able to complete puzzle provided mod verbal cues. Pt reports no updates on when he will be returning to work. ST assessed what supports Pt may need to assist with increasing independence, such as remembering appointments and completing functional activities at home such as cooking. Pt reported he was unsure and parents currently keep track of his appointments . Pt reports difficulties recalling how long to microwave items, however is unsure if this is due to memory issue or out of habit from asking them. ST encouraged Pt to create a cheat sheet at home of food items he microwaves and the amount of time to microwave in order to increase independence. ST provided Pt a calendar to train Pt on use of visual memory aid to keep track of appointments/events/ plans. Pt unable to recall any upcoming appointments. ST assisted Pt with writing down upcoming ST appointments. Pt independently wrote down appointments with 100% accuracy. ST encouraged Pt to write down any appointments/ plans/events on calendar that may come up. Pt verbalized understanding. Reviewed with Patient Goals,Home Exercise Program Patient/Caregiver Understanding Excellent Plan Length of Session 60 Minutes
--- NOTE | 2023-02-28 11:30 | ST.OPTN ---
Visit Care Team Role Provider Type KIMI Robbins Attending Provider Non-Staff Family Provider Primary Care Provider Referring Provider Address: [facility] [address], [address], [place], [address] GROUP EXERCISE INSTRUCTOR Treatment Note GROUP EXERCISE INSTRUCTOR Treatment Note Start: 02/07/23 11:51 Freq: Status: Active Protocol: Document 02/28/23 11:21 MA (Rec: 02/28/23 11:30 MA [id number]) Speech Pathology Treatment Note Session Time Visit Start Time 10:30 Visit Stop Time 11:15 Total Visit Minutes 45 Visit Information Visit Number 5 Plan of Care Dates 02/02/23-05/05/22 Setting Treatment Setting Outpatient Care Visit Type Note Type Treatment Note Next Note Type Next Note Type Treatment Note General Information Patient History Pt is a 32 year old male 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 Pt was recently seen by ST in this outpatient facility, however would like to continue to improve cognitive/ linguistic abilities in order to return to work. According to his dad, who accompanied him, the pt was found down after falling while outside on porch. Pt was unconscious and emergency responders were called. Pt was air lifted to [facility] where he remained in a coma for 16 days. Pt underwent a craniotomy to remove an epidural hematoma. Initial [place] score wa 2. Pt remained in ICU until 05/14/22 and subsequently entered inpatient rehab at [facility] and was discharged on 05/30/22. Out patient OT, PT and ST therapies were recommended. He lives at home with his parents. He was working at [employer] prior to his accident and wishes to return to work soon. Subjective Observations/Patient Presentation Pt arrived to therapy with dad . Pt dad accompained Pt at the beginning of therapy session. Dad reports they received a referral for a MBS and will looked into getting that scheduled as soon as possible. Dad reports Pt had an appointment with PCP, Dr. Rodriguez on 03/21 to determine if able to go back to work. Pt alert and attentive during session. Objective Short Term Goals STG 1: Patient will recall new information, up to 5 elements , with 80% of opportunities and occasional verbal cues and visual cues in order to promote independence. STG 2: Patient will sequence 4 -6 functional steps with 80% accuracy with mild verbal and visual cues in order to promote independence and safety with ADLs. STG 3: Patient will demonstrate increase short term recall for functional/ daily life information with 90 % of opportunities given environmental modifications implemented and by using visual aids in order to increase safety during ADLs. STG 4: Pt will complete moderately difficult problem- solving tasks independently with use of strategies provided without cues/ assistance at 80% opportunities. Security Management Specialist Goals LTG 1: Patient will increase memory skills using compensatory strategies as trained, with implementation of environmental modifications , using visual/auditory aids as needed in order to promote independence. LTG 2: Patient will increase functional problem solving skills with occasional Verbal Cues and occasional Visual cues in order to promote independence Treatment Activities Memory, word finding, problem solving Assessment Patient Response to Treatment Excellent Assessment of Overall Progress Improving Assessment of Improvement Pt seen for 1:1 cognitive- linguistic therapy. Pt reports he did not add any more appointments or information to calendars provided during last session. Pt also reports he did not create cheat sheet for microwave times in order to increase independence and reduce having to rely on parents. ST educated Pt on additional visual aid of the calendar on his phone in order to track appointments to promote independence, especially if Pt is going to be returning to work eventually. Pt added speech therapy appointments and 1 doctor's appointment in phone calendar with about 80-90% accuracy requiring mild-mod verbal cues and repetition of instructions. ST assessed problem solving/memory recall utilizing constant therapy chel with the following tasks: counting mouney, repeating patterns, following instructions. Pt completed counting money task at a level 5 with 60% accuracy requiring cues to differentiate coins. For repeating pattern task at a level 4 Pt compelted with about 56% accuracy. Pt completed following instructions level 5 with 78% accuracy benefiting from mod verbal repetition cues of instructions. Reviewed with Patient Goals,Home Exercise Program Patient/Caregiver Understanding Excellent Plan Length of Session 45 Minutes
--- NOTE | 2023-03-07 12:28 | ST.OPTN ---
Visit Care Team Role Provider Type KIMI Robbins Attending Provider Non-Staff Family Provider Primary Care Provider Referring Provider Address: [facility] [address], [address], [place], [address] PLODDING MACHINE OPERATOR Treatment Note PLODDING MACHINE OPERATOR Treatment Note Start: 02/07/23 11:51 Freq: Status: Active Protocol: Document 03/07/23 12:13 MA (Rec: 03/07/23 12:28 MA [id number]) Speech Pathology Treatment Note Session Time Visit Start Time 10:30 Visit Stop Time 11:20 Total Visit Minutes 50 Visit Information Visit Number 6 Plan of Care Dates 02/02/23-05/05/22 Setting Treatment Setting Outpatient Care Visit Type Note Type Treatment Note Next Note Type Next Note Type Treatment Note General Information Patient History Pt is a 32 year old male 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 Pt was recently seen by ST in this outpatient facility, however would like to continue to improve cognitive/ linguistic abilities in order to return to work. According to his dad, who accompanied him, the pt was found down after falling while outside on porch. Pt was unconscious and emergency responders were called. Pt was air lifted to [facility] where he remained in a coma for 16 days. Pt underwent a craniotomy to remove an epidural hematoma. Initial [place] score wa 2. Pt remained in ICU until 05/14/22 and subsequently entered inpatient rehab at [facility] and was discharged on 05/30/22. Out patient OT, PT and ST therapies were recommended. He lives at home with his parents. He was working at [employer] prior to his accident and wishes to return to work soon. Subjective Observations/Patient Presentation Pt arrived to therapy with dad . Pt dad accompained Pt at the beginning of therapy session. Dad reports he tried calling to schedule MBS, however [facility] stated they did not receive referral. ST called pt PCP office and provider correct fax number to fax referral. Pt dad also reports Pt has been using calendar in cellphone to keep track of appointments. Dad reports plan for Pt to potentiall start working again at [employer] beginning of April. Pt alert and attentive during session. Objective Short Term Goals STG 1: Patient will recall new information, up to 5 elements , with 80% of opportunities and occasional verbal cues and visual cues in order to promote independence. STG 2: Patient will sequence 4 -6 functional steps with 80% accuracy with mild verbal and visual cues in order to promote independence and safety with ADLs. STG 3: Patient will demonstrate increase short term recall for functional/ daily life information with 90 % of opportunities given environmental modifications implemented and by using visual aids in order to increase safety during ADLs. STG 4: Pt will complete moderately difficult problem- solving tasks independently with use of strategies provided without cues/ assistance at 80% opportunities. Intermediate Goals LTG 1: Patient will increase memory skills using compensatory strategies as trained, with implementation of environmental modifications , using visual/auditory aids as needed in order to promote independence. LTG 2: Patient will increase functional problem solving skills with occasional Verbal Cues and occasional Visual cues in order to promote independence Treatment Activities Memory, problem solving Assessment Patient Response to Treatment Excellent Assessment of Overall Progress Improving Assessment of Improvement Pt seen for 1:1 cognitive- linguistic therapy. During session ST asked Pt dad what day/time upcoming doctor's appointment is with Pt independently reaching for phone to check calendar. Pt dad reports they added laundry and hair appointment in phone for reminder. ST facilitated conversation with Pt regarding what responsibilities/ activities he did prior to accident and if he does them now and if he would like to start doing them again. 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 ST educated Pt on strategies that may assist with use of register when starting to work again, such as writing down steps when getting trained to use it, asking service dog trainer to slow down and repeat information, taking pictures of steps and advocating for himself when needing help or assistance. ST informed Pt they will work more on this once it gets closer to his work start date. ST assessed problem solving/ memory recall utilizing constant therapy chel with the following tasks: repeating patterns, following instructions. For repeating pattern task at a level 4 Pt completed with about 70% accuracy, improvement from last session with 56%. Pt completed following instructions level 6 with 65% accuracy benefiting from mod verbal repetition cues of instructions. Reviewed with Patient Goals,Home Exercise Program Patient/Caregiver Understanding Excellent Plan Length of Session 45 Minutes
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
--- NOTE | 2023-04-25 16:30 | ST.OPDS ---
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 Pt was recently seen by ST in this outpatient facility, however would like to continue to improve cognitive/ linguistic abilities in order to return to work. According to his dad, who accompanied him, the pt was found down after falling while outside on porch. Pt was unconscious and emergency responders were called. Pt was air lifted to [facility] where he remained in a coma for 16 days. Pt underwent a craniotomy to remove an epidural hematoma. Initial Williams score wa 2. Pt remained in ICU until 05/14/22 and subsequently entered inpatient rehab at [facility] and was discharged on 05/30/22. Out patient OT, PT and ST therapies were recommended. He lives at home with his parents. He was working at [employer] prior to his accident and wishes to return to work soon. Subjective Observations/Patient Presentation Pt arrived to therapy with dad . Pt dad accompained Pt to session. Objective Short Term Goals STG 1: Patient will recall new information, up to 5 elements , with 80% of opportunities and occasional verbal cues and visual cues in order to promote independence.- NOT MET STG 2: Patient will sequence 4 -6 functional steps with 80% accuracy with mild verbal and visual cues in order to promote independence and safety with ADLs.- NOT MET STG 3: Patient will demonstrate increase short term recall for functional/ daily life information with 90 % of opportunities given environmental modifications implemented and by using visual aids in order to increase safety during ADLs.-MET STG 4: Pt will complete moderately difficult problem- solving tasks independently with use of strategies provided without cues/ assistance at 80% opportunities.- MET Senior Living Goals LTG 1: Patient will increase memory skills using compensatory strategies as trained, with implementation of environmental modifications , using visual/auditory aids as needed in order to promote independence.- NOT MET LTG 2: Patient will increase functional problem solving skills with occasional Verbal Cues and occasional Visual cues in order to promote independence- MET Treatment Activities Visual memory aid Assessment Patient Response to Treatment Excellent Assessment of Overall Progress Improving Assessment of Improvement ST reviewed MBSS with Pt and Pt dad, which was completed . ST reported that she contacted Pt primary doctor yesterday with recommendation for new ST outpatient orders for swallow deficit. Pt dad asked about insurance/billing d/t Pt with a $[address] referred Pt to schedulers, where they provided them the number for billing and also recommended they contact their insurance. Pt dad requested all further appointments be cancelled until he figures out billing/insurance. Awaiting referral from PCP for swallow eval. Pt has an appointment with his primary tomorrow and will mention swallow eval. ST provided Pt with bedtime routine checklist and reviewed it with him and his dad. Dad asked ST opinion on Pt returning to work on a cognitive basis. ST recommended that if Pt does begin working to start with easier tasks and ease back into it. ST also recommended that Pt take notes of job tasks and/or have cheat sheets related to different protocols and steps to complete job duties. Reviewed with Patient Goals,Home Exercise Program Patient/Caregiver Understanding Excellent Plan Discharge from ST d/t Pt reaching maximum potential and wanting to focus on swallow therapy. Length of Session
== END 2023-05-02 12:59 | disposition home or self-care (01) ==
LOC: SP 10:30
PROVIDERS: Family Provider Nurse Practitioner; PCP Nurse Practitioner; Referring Provider Nurse Practitioner; Visit Provider Nurse Practitioner
DX: R41.3 Other amnesia (principal); Z87.820 Personal history of traumatic brain injury
CPT/HCPCS: 92507; 92523